=== PATIENT | female | born 1955 | race Caucasian/White ===

== ENCOUNTER 2016-07-01 19:30 | Inpatient (IN) | payer MEDICARE, OTHER ==
[2016-07-01] MEDS ORDERED: SODIUM CHLORIDE 0.9% 1,000 ML IV STA (20:06)
[2016-07-01] MEDS ORDERED: ONDANSETRON 4 MG/2 ML VIAL IVP STA (20:07)
[2016-07-01] MEDS: SODIUM CHLORIDE 0.9% 1,000 ML IV SCH (20:38)
[2016-07-01 20:55] LABS: Basophils % (A) 0 %; CH 31.3; CHCM 34.7; Eosinophils # (A) 0.1 k/uL (0-0.7); Eosinophils % (A) 1 %; HCT 43.9 % (34.0-46.0); HDW 2.58; HGB 14.7 gm/dL (11.4-16.0); Luc % (Auto) 2; Lymphocytes % (A) 22 %; MCH 30.3 pg (25.0-35.0); MCHC 33.5 g/dL (31.0-37.0); MCV 90.5 fL (80.0-100.0); Mean Platelet Volume 6.6; Monocytes # (A) 0.7 k/uL (0-1.0); Monocytes % (A) 5 %; Neutrophils # (A) 9.7 k/uL (1.3-7.7); Neutrophils % (A) 71 %; RBC 4.85 m/uL (3.80-5.40); RDW 12.7 % (11.5-15.5); WBC 13.8 k/uL (3.8-10.6); WBC (Perox) 12.91
--- NOTE | 2016-07-01 20:55 | ED ---
General Adult HPI - General Chief complaint: Overdose Stated complaint: accidental drug ingestion Time Seen by Provider: 07/01/16 19:57 Source: patient Mode of arrival: wheelchair Limitations: no limitations - History of Present Illness Initial comments: This 61-year-old white male presents with a complaint of feeling dizzy/ lightheaded, weak, presyncopal, having blurry vision, and having arm tingling. She also has had some nausea. Her symptoms are worse with standing. She denies any chest pain. She states that she accidentally took her father's medications at 2:00 PM today. She apparently took: Digoxin, losartan, allopurinol, clorasin, Lasix, and Imdur. The symptoms came on shortly thereafter. She does present hypotensive and tachycardic. She states that she only took one dose of the medications and these were completely accidental. She further relates that she did not take her normal medications today after she realized that she took her father's medications. No other identifiable complaints or modifying factors. - Related Data Home Medications Medication Instructions Recorded Confirmed Aspirin [Adult Low Dose Aspirin EC] 81 mg PO DAILY 07/01/16 07/01/16 Cholecalciferol [Vitamin D3] 1,000 unit PO DAILY 07/01/16 07/01/16 Fluticasone Nasal [place] [Flonase 2 spr EA NOSTRIL DAILY 07/01/16 07/01/16 Nasal [place]] Hydrochlorothiazide 12.5 mg PO DAILY 07/01/16 07/01/16 Ibuprofen [Motrin] 800 mg PO TID PRN 07/01/16 07/01/16 Metoprolol Tartrate [Lopressor] 25 mg PO BID 07/01/16 07/01/16 Omeprazole 20 mg PO BID 07/01/16 07/01/16 Rosuvastatin [Crestor] 10 mg PO HS 07/01/16 07/01/16 Sucralfate [Carafate] 1 gm PO DAILY 07/01/16 07/01/16 Topiramate [Topamax] 50 mg PO BID 07/01/16 07/01/16 oxyCODONE-APAP 7.5-325MG [Percocet 1 tab PO TID PRN 07/01/16 07/01/16 7.5-325 mg] tiZANidine HCL [Zanaflex] 6 mg PO TID 07/01/16 07/01/16 Allergies Allergy/AdvReac Type Severity Reaction Status Date / Time sulfamethoxazole Allergy Unknown Verified 07/01/16 20:13 [From ] trimethoprim [From ] Allergy Unknown Verified 07/01/16 20:13 Review of Systems ROS Statement: Those systems with pertinent positive or pertinent negative responses have been documented in the HPI. ROS Other: All systems not noted in ROS Statement are negative. Past Medical History Past Medical History: Hypertension History of Any Multi-Drug Resistant Organisms: MRSA Date of last positivie culture/infection: 2008 MDRO Source:: Axilla, Cheek Past Surgical History: Heart Catheterization Past Psychological History: No Psychological Hx Reported Smoking Status: Current every day smoker Past Alcohol Use History: None Reported Past Drug Use History: None Reported General Exam - General Exam Comments Initial Comments: GENERAL: The patient is well nourished and well hydrated. VITAL SIGNS: Heart rate, blood pressure, respiratory rate reviewed as recorded in nurse's notes. EYES: Pupils are round and reactive. Extraocular movements are intact. No conjunctival / lid redness or swelling. ENT: No external evidence of injury, swelling, or ecchymosis. Airway is patent. Throat is clear. NECK: Nontender. No swelling or evidence of injury. No subcutaneous emphysema. Trachea is midline. No thyroid mass. HEART: Regular rate and rhythm. Good peripheral pulses. LUNGS/CHEST: Breath sounds clear and equal bilaterally. No rales, rhonchi, or wheezes. No ecchymosis, subcutaneous emphysema, or tenderness. ABDOMEN: Abdomen soft without tenderness. No palpable masses or organomegaly. No peritoneal signs. No abdominal wall swelling or ecchymosis. EXTREMITIES: No extremity tenderness. Normal muscle tone and function. No thoracolumbar tenderness. NEUROLOGIC: Sensation is grossly intact. Cranial nerve exam reveals face is symmetrical, tongue is midline, speech is clear. SKIN: No abrasions or ecchymosis is noted. No induration or masses noted. PSYCHIATRIC: Alert and oriented. Appropriate behavior and judgment. Limitations: no limitations Course Vital Signs 07/01/16 07/01/16 07/01/16 19:36 20:15 20:45 Temperature 97.5 F L Pulse Rate 121 H 108 H 102 H Respiratory 22 20 20 Rate Blood Pressure 81/57 84/54 98/56 O2 Sat by Pulse 96 98 99 Oximetry 07/01/16 21:15 Temperature Pulse Rate 97 Respiratory 20 Rate Blood Pressure 100/56 O2 Sat by Pulse 99 Oximetry Medical Decision Making - Medical Decision Making The patient was seen and examined. All diagnostics were reviewed. EKG was completed and shows a sinus tachycardia at a rate of 114. There is no acute ST- T wave changes noted. The AK intervals 1:30, QRS duration is 82, and QTC intervals 471. Her blood pressure initially was 81/57 but recheck shows 102/ 60. The laboratories reviewed. The CO2 is slightly low. The white blood cell count is slightly elevated. Her blood pressure is still only 96/54 on recheck. It is felt as though she would benefit from short stay admission for further evaluation and treatment. She is agreeable. Case will be discussed with medicine in the near future. - Lab Data Result diagrams: 07/01/16 20:30 07/01/16 20:30 Lab Results 07/01/16 07/01/16 07/01/16 Range/Units 20:30 20:30 20:30 WBC 13.8 H (3.8-10.6) k/uL RBC 4.85 (3.80-5.40) m/uL Hgb 14.7 (11.4-16.0) gm/dL Hct 43.9 (34.0-46.0) % MCV 90.5 (80.0-100.0) fL MCH 30.3 (25.0-35.0) pg MCHC 33.5 (31.0-37.0) g/dL RDW 12.7 (11.5-15.5) % Plt Count 315 (150-450) k/uL Neutrophils % 71 % Lymphocytes % 22 % Monocytes % 5 % Eosinophils % 1 % Basophils % 0 % Neutrophils # 9.7 H (1.3-7.7) k/uL Lymphocytes # 3.0 (1.0-4.8) k/uL Monocytes # 0.7 (0-1.0) k/uL Eosinophils # 0.1 (0-0.7) k/uL Basophils # 0.0 (0-0.2) k/uL Sodium 138 (137-145) mmol/L Potassium 3.7 (3.5-5.1) mmol/L Chloride 106 (98-107) mmol/L Carbon Dioxide 19 L (22-30) mmol/L Anion Gap 13 mmol/L BUN 24 H (7-17) mg/dL Creatinine 0.78 (0.52-1.04) mg/dL Est GFR (MDRD) Af Amer >60 (>60 ml/min/1.73 sqM) Est GFR (MDRD) Non-Af >60 (>60 ml/min/1.73 sqM) Glucose 122 H (74-99) mg/dL Calcium 9.6 (8.4-10.2) mg/dL Total Bilirubin 0.3 (0.2-1.3) mg/dL AST 11 L (14-36) U/L ALT 20 (9-52) U/L Alkaline Phosphatase 92 (38-126) U/L Total Creatine Kinase 28 L (30-135) U/L CK-MB (CK-2) 0.9 (0.0-2.4) ng/mL CK-MB (CK-2) Rel Index 3.2 Troponin I <0.012 (0.000-0.034) ng/mL Total Protein 7.2 (6.3-8.2) g/dL Albumin 4.2 (3.5-5.0) g/dL Disposition Clinical Impression: Accidental drug ingestion, Hypotension, Sinus tachycardia, Dizziness, Pre- syncope, Weakness Disposition: ADMITTED IP TO THIS [facility] Time of Disposition: 21:41 Decision Date: 07/01/16 Decision Time: 21:41
[2016-07-01 21:04] LABS: ALT 20 U/L (9-52); AST 11 U/L (14-36); Alkaline Phosphatase 92 U/L (38-126); Anion Gap 13 mmol/L; Blood Urea Nitrogen 24 mg/dL (7-17); Calcium 9.6 mg/dL (8.4-10.2); Carbon Dioxide 19 mmol/L (22-30); Chloride 106 mmol/L (98-107); Glucose 122 mg/dL (74-99); Non-African American GFR(MDRD) >60 (>60 ml/min/1.73 sqM); Potassium 3.7 mmol/L (3.5-5.1); Sodium 138 mmol/L (137-145); Total Bilirubin 0.3 mg/dL (0.2-1.3); Total Protein 7.2 g/dL (6.3-8.2)
[2016-07-01 21:16] LABS: Creatine Kinase 28 U/L (30-135)
[2016-07-01 21:28] LABS: Creatine Kinase MB 0.9 ng/mL (0.0-2.4); Troponin I <0.012 ng/mL (0.000-0.034)
[2016-07-01] MEDS ORDERED: NALOXONE 0.4 MG/ML 1 ML VIAL IV PRN (22:55)
[2016-07-01] MEDS ORDERED: ONDANSETRON 4 MG/2 ML VIAL IVP PRN (22:55)
[2016-07-01] MEDS ORDERED: METOCLOPRAMIDE 5 MG/ML 2 ML VIAL IVP PRN (23:01)
[2016-07-01] MEDS ORDERED: oxyCODONE-APAP 7.5-325MG 1 EACH TAB PO PRN (23:01)
[2016-07-02 00:24] VITALS: RESP 16
[2016-07-02 00:26] VITALS: BMI 37.7
[2016-07-02] MEDS: SODIUM CHLORIDE 0.9% 1,000 ML IV SCH (05:29)
[2016-07-02 07:41] VITALS: BP 102/75; PULSE 100; TEMP 98.6
[2016-07-02] MEDS ORDERED: IBUPROFEN 600 MG TAB PO PRN (08:12)
[2016-07-02] MEDS ORDERED: CHOLECALCIFEROL 1,000 UNIT TAB PO SCH (09:00)
[2016-07-02] MEDS ORDERED: HYDROCHLOROTHIAZIDE 12.5 MG CAP PO SCH (09:00)
[2016-07-02] MEDS ORDERED: SUCRALFATE 1 GM TAB PO SCH (09:00)
[2016-07-02] MEDS ORDERED: TOPIRAMATE 25 MG TAB PO SCH (09:00)
[2016-07-02] MEDS ORDERED: FLUTICASONE 50MCG/SPRAY NASAL 16GM EA NOSTRIL SCH (09:00)
[2016-07-02] MEDS ORDERED: ENOXAPARIN 40 MG/0.4 ML SYRINGE SQ SCH (09:00)
[2016-07-02] MEDS ORDERED: PANTOPRAZOLE 40 MG/10 ML VIAL IV SCH (09:00)
[2016-07-02] MEDS ORDERED: ASPIRIN 81 MG CHEW PO SCH (09:00)
[2016-07-02] MEDS ORDERED: METOPROLOL TARTRATE 25 MG TAB PO SCH (09:00)
--- NOTE | 2016-07-02 16:32 | P.HPIM ---
History of Present Illness H&P Date: 07/02/16 Chief Complaint: Drug overdose HISTORY AND PHYSICAL AND DISCHARGE SUMMARY: This is a 61-year-old female patient of Dr. Dwayne Pablo with a past medical history of COPD, gastroesophageal reflux disease, hyperlipidemia, hypertension, MRSA, tobacco use and dependence. Patient states that she usually sets up her own medications as well as her father's medications and accidentally took his medications of digoxin, losartan, allopurinol, quercetin, Lasix, Imdur. Patient noticed that she was feeling dizzy in heart rate was increased and later when she was going to give her father his medication she noticed her mistake. She came into [facility] emergency center for evaluation. Patient initially was hypotensive. EKG was a sinus tachycardia with no acute ST-T wave changes. White count was 13.8, BUN 24 and creatinine 0.78. Patient was started on IV fluids and monitored overnight. Blood pressure and heart rate improved by morning. Patient was ready for discharge home. 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 Patient is being discharged home today in stable condition. Review of Systems All systems: negative Constitutional: Reports fatigue, Denies chills, Denies fever Eyes: denies blurred vision, denies pain Ears, nose, mouth and throat: Reports vertigo, Denies headache, Denies sore throat Cardiovascular: Reports palpitations, Denies chest pain, Denies shortness of breath Respiratory: Denies cough Gastrointestinal: Denies abdominal pain, Denies diarrhea, Denies nausea, Denies vomiting Genitourinary: Denies dysuria, Denies hematuria Musculoskeletal: Denies myalgias Integumentary: Denies pruritus, Denies rash Neurological: Denies numbness, Denies weakness Psychiatric: Denies anxiety, Denies depression Endocrine: Denies fatigue, Denies weight change Past Medical History Past Medical History: COPD, GERD/Reflux, Hyperlipidemia, Hypertension History of Any Multi-Drug Resistant Organisms: None Reported, MRSA Date of last positivie culture/infection: 2008 MDRO Source:: Axilla, Cheek Past Surgical History: Back Surgery, Cholecystectomy, Heart Catheterization, Hernia Repair, Hysterectomy, Orthopedic Surgery Additional Past Surgical History / Comment(s): bilateral knee scope, left carpal tunnel, left elbow surgery, lumbar back surgery, hysterectomy due to dysfunctional uterine bleeding, colonoscopy in the past. Past Anesthesia/Blood Transfusion Reactions: No Reported Reaction Past Psychological History: Depression Smoking Status: Current every day smoker Past Alcohol Use History: None Reported Additional Past Alcohol Use History / Comment(s): Patient is a smoker one pack per day since she was 16 years of age. 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 Past Drug Use History: None Reported - Past Family History Mother Family Medical History: Cancer, COPD, Diabetes Mellitus Additional Family Medical History / Comment(s): Mother at age 73 with history of lung cancer and diabetes. Father Family Medical History: COPD, Diabetes Mellitus Additional Family Medical History / Comment(s): Father is alive at age 83 with history of diabetes mellitus with bilateral lower extremity amputations, coronary artery disease, heart failure, atrial fibrillation. Brother(s) Additional Family Medical History / Comment(s): Patient has 2 brothers and 2 sisters and she does not have any contact with them for more than 6 years. Daughter(s) Additional Family Medical History / Comment(s): Patient has 3 children. One at age 34 from heart problems or pneumonia. 1 has seizure disorder and blood cancer, one is healthy. Medications and Allergies Home Medications Medication Instructions Recorded Confirmed Type Aspirin [Adult Low Dose Aspirin EC] 81 mg PO DAILY 07/01/16 07/01/16 History Cholecalciferol [Vitamin D3] 1,000 unit PO DAILY 07/01/16 07/01/16 History Fluticasone Nasal [place] [Flonase 2 spr EA NOSTRIL DAILY 07/01/16 07/01/16 History Nasal [place]] Hydrochlorothiazide 12.5 mg PO DAILY 07/01/16 07/01/16 History Ibuprofen [Motrin] 800 mg PO TID PRN 07/01/16 07/01/16 History Metoprolol Tartrate [Lopressor] 25 mg PO BID 07/01/16 07/01/16 History Omeprazole 20 mg PO BID 07/01/16 07/01/16 History Rosuvastatin [Crestor] 10 mg PO HS 07/01/16 07/01/16 History Sucralfate [Carafate] 1 gm PO DAILY 07/01/16 07/01/16 History Topiramate [Topamax] 50 mg PO BID 07/01/16 07/01/16 History oxyCODONE-APAP 7.5-325MG [Percocet 1 tab PO TID PRN 07/01/16 07/01/16 History 7.5-325 mg] tiZANidine HCL [Zanaflex] 6 mg PO TID 07/01/16 07/01/16 History Allergies Allergy/AdvReac Type Severity Reaction Status Date / Time sulfamethoxazole Allergy Rash/Hives Verified 07/02/16 00:32 [From ] trimethoprim [From ] Allergy Rash/Hives Verified 07/02/16 00:32 Physical Exam Vitals: Vital Signs Temp Pulse Pulse Resp BP BP Pulse Ox 07/02/16 07:00 98.6 F 100 16 102/75 97 07/02/16 02:29 101 H 106/87 07/02/16 00:23 97.3 F L 106 H 16 108/72 96 07/01/16 23:33 97.6 F 96 18 142/63 96 07/01/16 22:00 90 20 110/70 97 07/01/16 21:15 97 20 100/56 99 07/01/16 20:45 102 H 20 98/56 99 07/01/16 20:15 108 H 20 84/54 98 07/01/16 19:36 97.5 F L 121 H 22 81/57 96 Intake and Output 07/01/16 07/02/16 07/02/16 22:59 06:59 14:59 Other: # Voids 1 1 Weight 90.718 kg 102.9 kg Gen: This is a 61-year-old female. She is sitting up in bed and appears to be in no acute distress. HEENT: Head is atraumatic, normocephalic. Pupils equal, round. Sclerae is anicteric. NECK: Supple. No JVD. No lymphadenopathy. No thyromegaly. LUNGS: Clear to auscultation. No wheezes or rhonchi. No intercostal retractions. HEART: Regular rate and rhythm. No murmur. ABDOMEN: Soft. Bowel sounds are present. No masses. No tenderness. EXTREMITIES: No pedal edema. No calf tenderness. NEUROLOGICAL: Patient is awake, alert and oriented x3. Cranial nerves 2 through 12 are grossly intact. Results CBC & Chem 7: 07/01/16 20:30 07/01/16 20:30 Labs: Abnormal Lab Results - Last 24 Hours (Table) 07/01/16 07/01/16 07/01/16 Range/Units 20:30 20:30 20:30 WBC 13.8 H (3.8-10.6) k/uL Neutrophils # 9.7 H (1.3-7.7) k/uL Carbon Dioxide 19 L (22-30) mmol/L BUN 24 H (7-17) mg/dL Glucose 122 H (74-99) mg/dL AST 11 L (14-36) U/L Total Creatine Kinase 28 L (30-135) U/L Thrombosis Risk Factor Assmnt - DVT/VTE Prophylaxis DVT/VTE Prophylaxis: Pharmacologic Prophylaxis ordered - Choose All That Apply Any of the Below Risk Factors Present?: Yes Each Factor Represents 1 point: Abnormal pulmonary function (COPD), Age 41-60 years, Obesity (BMI >25) Other Risk Factors: No Other congenital or acquired thrombophilia - If yes, enter type in comment: No Thrombosis Risk Factor Assessment Total Risk Factor Score: 3 Thrombosis Risk Factor Assessment Level: Moderate Risk Assessment and Plan Plan: 1. Accidental ingestion of medications presenting with dizziness, presyncope and tachycardia, resolved. 2. COPD, stable. 3. Gastroesophageal reflux disease. 4. Hyperlipidemia. 5. Hypertension. 6. Chronic back pain. 7. Seasonal ALLERGIES. Patient will be admitted to the hospital for a minimum of 1 night stay. Discharge plan: Return home Impression and plan of care have been directed as dictated by the signing physician. Kelly Guerrier nurse practitioner acting as scribe for signing physician.
[2016-07-02] MEDS ORDERED: ATORVASTATIN 20 MG TAB PO SCH (21:00)
== END 2016-07-02 12:18 | disposition home or self-care (01) | DRG 918 ==
LOC: EC 19:30 → OBSVTOIN 22:58 → 4MS4W 22:58
PROVIDERS: ADMIT Internal Medicine; ATTEND Internal Medicine
DX: T46.0X1A Poisoning by cardiac-stimulant glycosides and drugs of similar action, accidental (unintentional), initial encounter (principal); I95.9 Hypotension, unspecified; I10 Essential (primary) hypertension; F32.9 Major depressive disorder, single episode, unspecified; R55 Syncope and collapse; T46.5X1A Poisoning by other antihypertensive drugs, accidental (unintentional), initial encounter; T50.4X1A Poisoning by drugs affecting uric acid metabolism, accidental (unintentional), initial encounter; T50.1X1A Poisoning by loop [high-ceiling] diuretics, accidental (unintentional), initial encounter; T46.3X1A Poisoning by coronary vasodilators, accidental (unintentional), initial encounter; R42 Dizziness and giddiness; R00.0 Tachycardia, unspecified; E78.5 Hyperlipidemia, unspecified; F17.200 Nicotine dependence, unspecified, uncomplicated; G89.29 Other chronic pain; J30.2 Other seasonal allergic rhinitis; J44.9 Chronic obstructive pulmonary disease, unspecified; K21.9 Gastro-esophageal reflux disease without esophagitis; M54.9 Dorsalgia, unspecified; Z79.82 Long term (current) use of aspirin; Z79.899 Other long term (current) drug therapy; Z86.14 Personal history of Methicillin resistant Staphylococcus aureus infection; Z88.2 Allergy status to sulfonamides; Z88.8 Allergy status to other drugs, medicaments and biological substances; Z82.49 Family history of ischemic heart disease and other diseases of the circulatory system; Y92.009 Unspecified place in unspecified non-institutional (private) residence as the place of occurrence of the external cause
CPT/HCPCS: 36415; 80053; 82550; 82553; 84484; 85025; 93005

== ENCOUNTER → 2016-08-29 | Outpatient (CLI) | payer MEDICARE ==
--- NOTE | 2016-08-29 16:59 | CT ---
EXAMINATION TYPE: CT lumbar spine wo con DATE OF EXAM: 08/29/2016 4:40 PM COMPARISON: NONE HISTORY: Low back pain into both legs. CT DLP: 990.00 mGycm Automated exposure control for dose reduction was used. Unenhanced CT of the lumbar spine was performed. Bone and soft tissue window settings are submitted as well as coronal and sagittal reconstructions. Assessment spinal canal limited due to artifact and noncontrast technique. Lipoma of the left diaphragmatic mojgan. At T12-L1 there is a central disc bulge with mild effacement of thecal sac. Neural foramina patent. L1-L2: Circumferential disc bulge and degenerative disc disease with mild hypertrophy of the facets. Neural foramina remain patent. L2-L3: Moderate degenerative disc disease with diffuse disc bulging and facet arthropathy. There is e ffacement of thecal sac is suspicion for bilateral foraminal encroachment and canal stenosis. L3-L4: Severe degenerative disc disease with discogenic marrow changes and vacuum disc. There is hype rtrophic facet arthropathy and diffuse disc bulging with findings suspicious for canal stenosis, late ral recess stenosis, and bilateral foraminal encroachment. L4-L5: Vacuum disc and severe degenerative disc disease with diffuse disc bulging. Central and right paracentral disc protrusion with hypertrophy of the ligamentum flavum and facets suspected suspected canal stenosis and significant bilateral foraminal encroachment. L5-S1: Circumferential disc bulging and degenerative disc disease. There is facet arthropathy and riley picion for bilateral foraminal encroachment. IMPRESSION: 1. Multilevel degenerative disc disease with severe changes at L3-4 and L4-5. Multilevel disc bulging is also seen which results in multilevel significant canal stenosis and foraminal encroachment. Mor mmend follow-up MRI.
== END | disposition home or self-care (01) ==
LOC: RADCTMAIN 15:57
PROVIDERS: ATTEND Orthopaedic Surgery
DX: M48.06 Spinal stenosis, lumbar region (principal); M51.26 Other intervertebral disc displacement, lumbar region; M51.36 Other intervertebral disc degeneration, lumbar region
CPT/HCPCS: 72131

== ENCOUNTER → 2016-08-30 | Outpatient (CLI) | payer MEDICARE ==
--- NOTE | 2016-08-30 22:11 | MR ---
MRI CERVICAL SPINE: CLINICAL HISTORY: Headaches with neck pain and bilateral upper extremity weakness and numbness per pa tient. Lhermitte sign and neck pain per order. TECHNIQUE: Multiplanar, multisequence imaging of the cervical spine is performed without IV contrast. COMPARISON: None. FINDINGS: Exam is somewhat suboptimal as is degraded by patient motion. Sagittal images of the cervic al spine show the craniocervical junction to appear within normal limits. The cervical and upper tho racic spinal cord is normal in course, caliber, and signal. Vertebral alignment is anatomic. The ve rtebral body heights are normal. There is mild disc space narrowing C4-C5 level. Small posterior disc herniations are seen C4-C5 and C6-C7 level on sagittal images effacing anterior thecal sac. The bone marrow signal intensity is within normal limits. Miffed and spurring is seen. Axial images show the C2-C3 and C3-C4 levels to appear within normal limits. Axial images at C4-C5 level show broad-based posterior disc protrusion most prominent right paracentr al level effacing anterior thecal sac nearly up to ventral surface of spinal cord. There are uncovert ebral facet degenerative changes bilaterally and mild marginal spurring contributing to moderate left and mild right-sided neural foraminal narrowing. Axial images at C5-C6 level show broad-based central disc protrusion mildly effacing anterior thecal sac, bilateral neural foramina are patent. Axial images at C6-C7 level show uncovertebral facet degenerative changes greater on the left with po sterior broad-based disc protrusion effacing anterior thecal sac and causing asymmetric moderate to a dvanced left-sided neural foraminal narrowing. Right-sided neural foraminal narrowing is present. Axial images at C7-T1 level are felt within normal limits. There is suspected 7 mm T2 hyperintense lesion in lower pole left thyroid lobe on axial image 5. Thyr oid gland is overall small in size. There is 8mm T2 hyperintense lesion in the central isthmus on axi al image 12. Smaller nodules are suspected. IMPRESSION: Multilevel degenerative changes in the cervical spine most prominent at C4-C5 and C6-C7 l evels as detailed above. Most prominent spinal canal effacement at C4-C5 level on axial image 31 and sagittal image 9 right paracentral aspect. Advise thyroid ultrasound follow-up for scattered thyroid nodules to further assess and characterize.
== END | disposition home or self-care (01) ==
LOC: RADMRIMAIN 14:23
PROVIDERS: ATTEND Orthopaedic Surgery
DX: M47.812 Spondylosis without myelopathy or radiculopathy, cervical region (principal)
CPT/HCPCS: 72141

== ENCOUNTER → 2016-09-10 | Outpatient (CLI) | payer MEDICARE ==
--- NOTE | 2016-09-10 17:40 | MR ---
EXAMINATION TYPE: MR thoracic spine wo con DATE OF EXAM: 09/10/2016 5:27 PM COMPARISON: NONE HISTORY: Back and Leg pain x20 years Multiplanar MultiSpin echo imaging of the thoracic spine was performed. Disc spaces: There is mild decreased signal and loss of height compatible with disc desiccation at T6 -T7 through T10-11. At T6-7 there is posterior central small disc protrusion. At T9-10 and T10-11 the re is mild posterior disc bulge. Spinal canal: No evidence for canal stenosis. No intrinsic or extrinsic lesion. Thoracic spinal cord: Thoracic spinal cord is of normal caliber and signal. Paraspinal soft tissues: No evidence for paraspinal mass. No destructive lesions seen. Vertebral segments: Scattered ventral spondylosis is identified. No evidence for fracture or bony les ion. IMPRESSION: 1. Degenerative disc disease as discussed. 2. Disc protrusion posterocentrally at C6-7.
== END | disposition home or self-care (01) ==
LOC: RADMRIMAIN 16:38
PROVIDERS: ATTEND Orthopaedic Surgery
DX: M51.24 Other intervertebral disc displacement, thoracic region (principal); M51.34 Other intervertebral disc degeneration, thoracic region
CPT/HCPCS: 72146

== ENCOUNTER → 2016-09-18 | Outpatient (CLI) | payer MEDICARE ==
[2016-09-18 16:14] LABS: Non-African American GFR(MDRD) >60 (>60 ml/min/1.73 sqM)
== END | disposition home or self-care (01) ==
LOC: LABWHC1 15:46
PROVIDERS: ATTEND Orthopaedic Surgery
DX: Z09 Encounter for follow-up examination after completed treatment for conditions other than malignant neoplasm (principal); Z98.890 Other specified postprocedural states
CPT/HCPCS: 36415; 82565

== ENCOUNTER → 2017-06-18 | Outpatient (CLI) | payer MEDICARE ==
[2017-06-18 14:42] LABS: Blood Urea Nitrogen 17 mg/dL (7-17)
--- NOTE | 2017-06-22 02:58 | MR ---
EXAMINATION TYPE: MR edd/lspine wo/w con DATE OF EXAM: 06/18/2017 COMPARISON: Cervical spine 08/30/2016 and lumbar spine 02/14/2016 HISTORY: 62-year-old female cervicalgia, neck pain, low back pain. Technique: Multiplanar, multisequence images of the cervical and lumbar spines were obtained before a nd after administration of 10 mL intravenous Gadavist. FINDINGS: CERVICAL SPINE: No craniocervical junction abnormality, predental space widening, or prevertebral soft tissue swellin g. Intervertebral discs show variable mild to moderate disc desiccation. Disc osteophyte complexes are p resent, largest in C4-C5. Ligamentum flavum thickening lower cervical spine. Small posterior annular fissure at C5-C6 is slightly larger. Straightening of the upper cervical lordosis but with preserved alignment. Scattered facet and uncovertebral joint degenerative change throughout. No suspicious bone marrow replacement. At C2-C3, mild facet degenerative change without significant canal or foraminal stenosis. At C3-C4, facet and uncovertebral joint degenerative change with mild left neuroforaminal stenosis. N o significant spinal canal stenosis. At C4-C5, there is bilateral paracentral disc osteophyte complex contiguous with uncovertebral joint degenerative change. Additional facet arthropathy. Changes result in [id number] left greater th an right neuroforaminal stenosis. There is ventral impression on the thecal sac and abutment of the v entral cord with minimal cord flattening but no significant spinal canal stenosis. At C5-C6, broad-based posterior disc bulge with annular fissure. Ligamentum flavum thickening. Facet and uncovertebral joint degenerative changes present. No significant spinal canal or foraminal stenos is. At C6/C7, broad-based disc osteophyte complex with contiguous uncovertebral joint arthropathy as well as bilateral facet arthropathy. Ligamentum flavum thickening is also present. There is overall mild spinal canal stenosis with abutment of both the dorsal and ventral cord but no significant cord angelica ening. Changes result in moderate left and mild right neuroforaminal stenosis. At C7-T1, mild facet degenerative change without significant canal or foraminal stenosis. No T2-weighted cord signal abnormality. No abnormal enhancement within the spinal canal. Overall changes are similar to the patient's recent prior. 9 mm nodule left lobe of the thyroid gland not significantly changed. LUMBAR SPINE: Vertebral body heights are preserved. Grade 1 retrolisthesis from L2 through L5 levels, stable to slightly increased. Multilevel severe hypertrophic facet arthropathy is present. Intervertebral discs are degenerated, desiccated, narrowed, a diffusely bulging. Severe degenerative disc disease and endplate spondylosis at L3-L4 and L4-L5 progressed at L4-L5. Conus medullaris terminates at an appropriate level. No prevertebral or paravertebral soft tissue abnormality seen. At T12-L1, there is diffuse disc bulge and prominent dorsal epidural fat. Similar mild spinal canal s tenosis and no significant neural foraminal stenosis. At L1-L2, there is diffuse disc bulge with hypertrophic facet arthropathy and prominent epidural fat. Changes result in similar mild spinal canal stenosis at the level of the conus without significant n euroforaminal stenosis. At L2-L3, there is trace grade 1 retrolisthesis with hypertrophic facet arthropathy, prominent dorsal epidural fat, and diffuse disc bulge. Changes result in worsening severe spinal canal stenosis. Rosa Isela lar mild bilateral neuroforaminal stenosis. At L3-L4, disc osteophyte complex with hypertrophic facet arthropathy and grade 1 retrolisthesis. Rel atively similar severe spinal canal stenosis. Similar moderate left and mild right neuroforaminal sidney nosis. At L4-L5, hypertrophic facet arthropathy with ligamentum flavum thickening and diffuse disc bulge wit h trace grade 1 retrolisthesis. Changes have progressed from prior exam now with severe spinal canal stenosis. Similar moderate bilateral neuroforaminal stenosis. At L5-S1, diffuse disc bulge with hypertrophic facet arthropathy and ligamentum flavum thickening. Si milar moderate left with increased severe right neuroforaminal stenosis. No spinal canal stenosis. Maximal endplate changes are present particularly towards the left at L3-L4 and L4-L5. The previously sequestered disc fragment at the posterior aspect of L4 is no longer seen. No abnormal enhancement within the spinal canal. COMBINED IMPRESSION: CERVICAL SPINE: 1. [id number] multilevel degenerative disc disease with small disc osteophyte complexes. There is a posterior annular fissure at C5-C6 which is slightly larger. 2. Mild ligamentum flavum thickening lower cervical spine and multilevel facet/uncovertebral joint ar thropathy. 3. Changes result in overall mild spinal canal stenosis at C6-C7 where there is abutment of both the dorsal and ventral cord but no significant cord flattening or canal compromise. 4. Variable mild neural foraminal stenoses as outlined above, moderate on the left at C6-C7. 5. Aside from the annular fissure, overall changes have not significantly progressed from prior exam. LUMBAR SPINE: 1. Moderate to advanced multilevel spondylotic change with degenerative grade 1 retrolisthesis from L 2 through L5 levels, slightly progressed from 02/14/2016. 2. The previously seen sequestered disc fragment at the L4 level is no longer seen. However, now, the re is increased severe spinal canal stenosis at L4-L5. Relatively similar severe spinal canal stenosi s at L3-L4, and worsening severe spinal canal stenosis at L2-L3. At L1-L2, there is similar mild spin al canal stenosis at the level of the conus. 3. Variable bilateral neural foraminal stenoses, increasing severe on the right at L5-S1 and either m ild or moderate at multiple other levels as outlined above.
== END ==
LOC: RADMRIMAIN 13:53
PROVIDERS: ATTEND Psychiatry & Neurology Neurology
DX: M54.2 Cervicalgia (principal); M54.5 Low back pain; M48.02 Spinal stenosis, cervical region; M48.061 Spinal stenosis, lumbar region without neurogenic claudication; M51.36 Other intervertebral disc degeneration, lumbar region
CPT/HCPCS: 82565; 84520; 72156; 72158; A9581

== ENCOUNTER 2019-06-21 17:06 | Emergency (ER) | payer MEDICARE ==
[2019-06-21 17:17] VITALS: RESP 18
[2019-06-21] MEDS ORDERED: KETOROLAC 60 MG/2 ML VIAL IM STA (17:45)
--- NOTE | 2019-06-21 17:48 | ED ---
General Adult HPI - General Chief complaint: Extremity Problem,Nontraumatic Stated complaint: breast swelling Time Seen by Provider: 06/21/19 17:20 Source: patient Mode of arrival: wheelchair Limitations: no limitations - History of Present Illness Initial comments: Patient is a 64-year-old female presenting to the emergency Department with complaints of right breast pain 2 days. Patient denies any history of trauma or falls. Patient states she noticed some soreness 2 days ago and then a little bit of swelling yesterday. Patient states today she noticed significant bruising and a rapid increase in the swelling today. Patient states she is alr jacqueline on a morphine pump for chronic back pain and states this pain is limiting her daily activities. She states she has never had anything like this before. She denies history of any kind of breast injuries or surgeries. She denies recent fever, chills, nausea, vomiting. She states she did take 800 mg Motrin this morning as well which minimally helped the pain. She has no other complaints at this time. Upon arrival to the ER, patient is slightly tachycardia, rest of vitals normal. - Related Data Home Medications Medication Instructions Recorded Confirmed Aspirin [Adult Low Dose Aspirin EC] 81 mg PO DAILY 07/01/16 07/01/16 Cholecalciferol [Vitamin D3 (25 1,000 unit PO DAILY 07/01/16 07/01/16 Mcg = 1000 Iu)] Fluticasone Nasal Advance [Flonase 2 spr EA NOSTRIL DAILY 07/01/16 07/01/16 Nasal Advance] Hydrochlorothiazide 12.5 mg PO DAILY 07/01/16 07/01/16 Ibuprofen [Motrin] 800 mg PO TID PRN 07/01/16 07/01/16 Metoprolol Tartrate [Lopressor] 25 mg PO BID 07/01/16 07/01/16 Omeprazole 20 mg PO BID 07/01/16 07/01/16 Rosuvastatin [Crestor] 10 mg PO HS 07/01/16 07/01/16 Sucralfate [Carafate] 1 gm PO DAILY 07/01/16 07/01/16 Topiramate [Topamax] 50 mg PO BID 07/01/16 07/01/16 oxyCODONE-APAP 7.5-325MG [Percocet 1 tab PO TID PRN 07/01/16 07/01/16 7.5-325 mg] tiZANidine HCL [Zanaflex] 6 mg PO TID 07/01/16 07/01/16 Allergies Allergy/AdvReac Type Severity Reaction Status Date / Time sulfamethoxazole Allergy Rash/Hives Verified 06/21/19 17:17 [From ] trimethoprim [From ] Allergy Rash/Hives Verified 06/21/19 17:17 Review of Systems ROS Statement: Those systems with pertinent positive or pertinent negative responses have been documented in the HPI. ROS Other: All systems not noted in ROS Statement are negative. Past Medical History Past Medical History: COPD, GERD/Reflux, Hyperlipidemia, Hypertension History of Any Multi-Drug Resistant Organisms: None Reported, MRSA Date of last positivie culture/infection: 2008 MDRO Source:: Axilla, Cheek Past Surgical History: Back Surgery, Cholecystectomy, Heart Catheterization, Hernia Repair, Hysterectomy, Orthopedic Surgery Additional Past Surgical History / Comment(s): bilateral knee scope, left carpal tunnel, left elbow surgery, lumbar back surgery, hysterectomy due to dysfunctio nal uterine bleeding, colonoscopy in the past. Past Anesthesia/Blood Transfusion Reactions: No Reported Reaction Past Psychological History: Depression Smoking Status: Current every day smoker Past Alcohol Use History: None Reported Past Drug Use History: None Reported - Past Family History Mother Family Medical History: Cancer, COPD, Diabetes Mellitus Additional Family Medical History / Comment(s): Mother at age 73 with history of lung cancer and diabetes. Father Family Medical History: COPD, Diabetes Mellitus Additional Family Medical History / Comment(s): Father is alive at age 83 with history of diabetes mellitus with bilateral lower extremity amputations, coronary artery disease, heart failure, atrial fibrillation. Brother(s) Additional Family Medical History / Comment(s): Patient has 2 brothers and 2 sisters and she does not have any contact with them for more than 6 years. Daughter(s) Additional Family Medical History / Comment(s): Patient has 3 children. One at age 34 from heart problems or pneumonia. 1 has seizure disorder and blood cancer, one is healthy. General Exam - General Exam Comments Initial Comments: GENERAL: Well-appearing, well-nourished and in no acute distress. HEAD: Atraumatic, normocephalic. EYES: Pupils equal round and reactive to light, extraocular movements intact, sclera anicteric, conjunctiva are normal. ENT: TMs normal, nares patent, oropharynx clear without exudates. Moist mucous membranes. NECK: Normal range of motion, supple without lymphadenopathy or JVD. LUNGS: Breath sounds clear to auscultation bilaterally and equal. No wheezes rales or rhonchi. HEART: Regular rate and rhythm without murmurs, rubs or gallops. CHEST: Patient has significant swelling of the right breast up into her right upper chest as well as significant bruising of the medial aspect of the right breast. There is significant pain with palpation as well. There is no erythema or signs of infection. ABDOMEN: Soft, nontender, normoactive bowel sounds. No guarding, no rebound. No masses appreciated. : Deferred EXTREMITIES: Normal range of motion, no pitting or edema. No clubbing or cyanosis. NEUROLOGICAL: Normal speech, normal gait. PSYCH: Normal mood, normal affect. SKIN: Warm, Dry, normal turgor, no rashes or lesions noted. Limitations: no limitations Course Vital Signs 06/21/19 06/21/19 17:14 21:57 Temperature 98.8 F 98.2 F Pulse Rate 114 H 100 Respiratory 18 18 Rate Blood Pressure 112/93 119/90 O2 Sat by Pulse 96 98 Oximetry Medical Decision Making - Medical Decision Making Patient is 64-year-old female here with right breast pain, swelling, bruising 2 days. She denies any injuries or trauma. She is not on blood thinners. Ultrasound of the right breast reveals a large area of bruising measured approximately 6 x 8 x 11 cm, fevers hematoma, other etiologies not excluded. Recommended ultrasound-guided drainage. Lab work reveals mild leukocytosis at 13.5, coags are wnl. I discussed with patient to make sure she is wearing support and compression on the right breast. She will follow-up with surgery. Patient is in agreement with this plan of care. She is stable for discharge. Return parameters were discussed the patient she verbalized understanding. Case discussed in detail with Dr. Boyd who agrees with this plan of care. - Lab Data Result diagrams: 06/21/19 20:40 06/21/19 20:40 Lab Results 06/21/19 06/21/19 06/21/19 Range/Units 20:40 20:40 20:40 WBC 13.5 H (3.8-10.6) k/uL RBC 4.02 (3.80-5.40) m/uL Hgb 11.4 (11.4-16.0) gm/dL Hct 37.1 (34.0-46.0) % MCV 92.4 (80.0-100.0) fL MCH 28.5 (25.0-35.0) pg MCHC 30.8 L (31.0-37.0) g/dL RDW 13.4 (11.5-15.5) % Plt Count 340 (150-450) k/uL Neutrophils % 83 % Lymphocytes % 9 % Monocytes % 6 % Eosinophils % 1 % Basophils % 0 % Neutrophils # 11.2 H (1.3-7.7) k/uL Lymphocytes # 1.3 (1.0-4.8) k/uL Monocytes # 0.8 (0-1.0) k/uL Eosinophils # 0.1 (0-0.7) k/uL Basophils # 0.1 (0-0.2) k/uL PT 10.4 (9.0-12.0) sec INR 1.0 (<1.2) APTT 20.5 L (22.0-30.0) sec Sodium 134 L (137-145) mmol/L Potassium 3.7 (3.5-5.1) mmol/L Chloride 103 (98-107) mmol/L Carbon Dioxide 28 (22-30) mmol/L Anion Gap 3 mmol/L BUN 23 H (7-17) mg/dL Creatinine 0.69 (0.52-1.04) mg/dL Est GFR (CKD-EPI)AfAm >90 (>60 ml/min/1.73 sqM) Est GFR (CKD-EPI)NonAf >90 (>60 ml/min/1.73 sqM) Glucose 112 H (74-99) mg/dL Calcium 8.9 (8.4-10.2) mg/dL Total Bilirubin 0.3 (0.2-1.3) mg/dL AST 19 (14-36) U/L ALT 11 (4-34) U/L Alkaline Phosphatase 88 (38-126) U/L Total Protein 5.9 L (6.3-8.2) g/dL Albumin 3.1 L (3.5-5.0) g/dL Disposition Clinical Impression: Hematoma of right breast, Breast pain, right Disposition: HOME SELF-CARE Condition: Stable Instructions (If sedation given, give patient instructions): Hematoma (ED) Additional Instructions: Please return to the Emergency Department if symptoms worsen or any other concerns. Follow-up with surgery as discussed. Keep breast supported in bra as tolerated. Is patient prescribed a controlled substance at d/c from ED?: No Referrals: Dwayne Holloway MD [Primary Care Provider] - 1-2 days Graham Shin MD [STAFF PHYSICIAN] - 1-2 days
--- NOTE | 2019-06-21 19:33 | USB ---
EXAMINATION TYPE: US breast complete RT DATE OF EXAM: 06/21/2019 COMPARISON: NONE CLINICAL HISTORY: Right breast pain, swelling, and bruising x 2 days. No trauma. Patient states her l ast mammogram was approximately 20 years ago. Scanned right breast, retroareolar and axilla. Area of prominent bruising 4:00. There appears to be a complex hypoechoic area that extends into all quadrants of the right breast. Ar ea of prominent bruising seen in the 4:00 area. Area measured here approximately: 6.9 x 8.6 x 11.5 cm . This area does extend throughout the breast and is seen in most images, so it is difficult to accur ately measure by ultrasound. Area is identified by measurements at 400 and retroareolar, although the se are not accurate margins. Limited study. Patient needs follow up with [facility]. IMPRESSION: As above. Due to size of fluid collection which is not completely anechoic it is difficu lt to accurately measure. Favor hematoma. Other etiologies not excluded. Ultrasound-guided drainage c an be performed to further evaluate if desired especially if patient has symptoms of pain.
[2019-06-21 20:52] LABS: Basophils # (A) 0.1 k/uL (0-0.2); Basophils % (A) 0 %; Eosinophils # (A) 0.1 k/uL (0-0.7); Eosinophils % (A) 1 %; HCT 37.1 % (34.0-46.0); HGB 11.4 gm/dL (11.4-16.0); Lymphocytes # (A) 1.3 k/uL (1.0-4.8); Lymphocytes % (A) 9 %; MCH 28.5 pg (25.0-35.0); MCHC 30.8 g/dL (31.0-37.0); MCV 92.4 fL (80.0-100.0); Mean Platelet Volume 7.1; Monocytes # (A) 0.8 k/uL (0-1.0); Monocytes % (A) 6 %; Neutrophils # (A) 11.2 k/uL (1.3-7.7); Neutrophils % (A) 83 %; Platelet Count 340 k/uL (150-450); RBC 4.02 m/uL (3.80-5.40); RDW 13.4 % (11.5-15.5); WBC 13.5 k/uL (3.8-10.6)
[2019-06-21 21:05] LABS: ALT 11 U/L (4-34); AST 19 U/L (14-36); African American GFR (CKD) >90 (>60 ml/min/1.73 sqM); Albumin 3.1 g/dL (3.5-5.0); Alkaline Phosphatase 88 U/L (38-126); Anion Gap 3 mmol/L; Blood Urea Nitrogen 23 mg/dL (7-17); Calcium 8.9 mg/dL (8.4-10.2); Carbon Dioxide 28 mmol/L (22-30); Chloride 103 mmol/L (98-107); Glucose 112 mg/dL (74-99); Non-African American GFR(CKD) >90 (>60 ml/min/1.73 sqM); Potassium 3.7 mmol/L (3.5-5.1); Sodium 134 mmol/L (137-145); Total Bilirubin 0.3 mg/dL (0.2-1.3); Total Protein 5.9 g/dL (6.3-8.2)
[2019-06-21 21:15] LABS: Prothrombin Time 10.4 sec (9.0-12.0)
[2019-06-21 21:20] LABS: Partial Thromboplastin Time 20.5 sec (22.0-30.0)
[2019-06-21 21:58] VITALS: BP 119/90; PULSE 100; TEMP 98.2
== END 2019-06-21 21:57 | disposition home or self-care (01) ==
LOC: EC 17:06
DX: S20.01XA Contusion of right breast, initial encounter (principal); D72.829 Elevated white blood cell count, unspecified; J44.9 Chronic obstructive pulmonary disease, unspecified; K21.9 Gastro-esophageal reflux disease without esophagitis; E78.5 Hyperlipidemia, unspecified; I10 Essential (primary) hypertension; F32.9 Major depressive disorder, single episode, unspecified; F17.200 Nicotine dependence, unspecified, uncomplicated; Z79.82 Long term (current) use of aspirin; Z79.899 Other long term (current) drug therapy; Z88.2 Allergy status to sulfonamides; Z88.1 Allergy status to other antibiotic agents; X58.XXXA Exposure to other specified factors, initial encounter
CPT/HCPCS: 36415; 80053; 85025; 85610; 85730; 76641; 99284; 96372; J1885

== ENCOUNTER 2021-06-26 17:29 | Observation (INO) | payer MEDICARE ==
[2021-06-26] MEDS ORDERED: SODIUM CHLORIDE 0.9% 500 ML 500 ML IV STA (17:44)
[2021-06-26] MEDS ORDERED: ONDANSETRON 4 MG/2 ML VIAL IVP STA ×2 (17:44→18:31)
--- NOTE | 2021-06-26 17:51 | ED ---
General Adult HPI - General Chief complaint: Weakness Stated complaint: AMS Time Seen by Provider: 06/26/21 17:35 Source: patient, EMS, RN notes reviewed, old records reviewed Mode of arrival: EMS Limitations: physical limitation - History of Present Illness -: days(s) (1) Severity scale (1-10): 0 Associated Symptoms: loss of appetite, malaise, nausea/vomiting, weakness, other (Bilateral lower extremity redness) Treatments Prior to Arrival: other (2 doses of Keflex yesterday) - Related Data Home Medications Medication Instructions Recorded Confirmed Aspirin [Adult Low Dose Aspirin EC] 81 mg PO DAILY 07/01/16 06/26/21 Sucralfate [Carafate] 1 gm PO HS 07/01/16 06/26/21 ALPRAZolam [Xanax] 0.25 mg PO BID PRN 06/26/21 06/26/21 Albuterol Nebulized [Ventolin 2.5 mg INHALATION RT-QID PRN 06/26/21 06/26/21 Nebulized] Albuterol Sulfate [Proair 1 puff INHALATION RT-QID PRN 06/26/21 06/26/21 Respiclick] Cephalexin [Keflex] 500 mg PO QID 06/26/21 06/26/21 DULoxetine HCL [Cymbalta] 30 mg PO DAILY 06/26/21 06/26/21 DULoxetine HCL [Cymbalta] 60 mg PO HS 06/26/21 06/26/21 Furosemide [Lasix] 40 mg PO BID@0800,1400 06/26/21 06/26/21 Meloxicam [Mobic] 15 mg PO DAILY 06/26/21 06/26/21 Nitroglycerin Sl Tabs [Nitrostat] 0.4 mg SL Q5M PRN 06/26/21 06/26/21 Omeprazole 20 mg PO HS 06/26/21 06/26/21 Potassium Chloride ER [K-Dur 20] 20 meq PO DAILY 06/26/21 06/26/21 Pregabalin 50 mg PO BID 06/26/21 06/26/21 SILVER sulfADIAZINE Cream 1 applic TOPICAL DAILY 06/26/21 06/26/21 [Silvadene 1% Cream] Triamterene-Hctz 37.5-25Mg 1 tab PO DAILY 06/26/21 06/26/21 [Maxzide 37.5-25] diphenhydrAMINE HCL [Benadryl] 25 mg PO HS PRN 06/26/21 06/26/21 Allergies Allergy/AdvReac Type Severity Reaction Status Date / Time sulfamethoxazole Allergy Rash/Hives Verified 06/26/21 21:09 [From ] trimethoprim [From ] Allergy Rash/Hives Verified 06/26/21 21:09 Review of Systems ROS Statement: Those systems with pertinent positive or pertinent negative responses have been documented in the HPI. ROS Other: All systems not noted in ROS Statement are negative. Past Medical History Past Medical History: COPD, GERD/Reflux, Hyperlipidemia, Hypertension History of Any Multi-Drug Resistant Organisms: None Reported, MRSA Date of last positivie culture/infection: 2008 MDRO Source:: Axilla, Cheek Past Surgical History: Back Surgery, Cholecystectomy, Heart Catheterization, Hernia Repair, Hysterectomy, Orthopedic Surgery Additional Past Surgical History / Comment(s): bilateral knee scope, left carpal tunnel, left elbow surgery, lumbar back surgery, hysterectomy due to dysfunctional uterine bleeding, colonoscopy in the past. Past Anesthesia/Blood Transfusion Reactions: No Reported Reaction Past Psychological History: Depression Smoking Status: Current every day smoker Past Alcohol Use History: None Reported Past Drug Use History: None Reported - Past Family History Mother Family Medical History: Cancer, COPD, Diabetes Mellitus Additional Family Medical History / Comment(s): Mother at age 73 with history of lung cancer and diabetes. Father Family Medical History: COPD, Diabetes Mellitus Additional Family Medical History / Comment(s): Father is alive at age 83 with history of diabetes mellitus with bilateral lower extremity amputations, coronary artery disease, heart failure, atrial fibrillation. Brother(s) Additional Family Medical History / Comment(s): Patient has 2 brothers and 2 sisters and she does not have any contact with them for more than 6 years. Daughter(s) Additional Family Medical History / Comment(s): Patient has 3 children. One at age 34 from heart problems or pneumonia. 1 has seizure disorder and blood cancer, one is healthy. General Exam Limitations: physical limitation General appearance: alert Head exam: Present: atraumatic, normocephalic, normal inspection Eye exam: Present: normal appearance, PERRL. Absent: scleral icterus, conjunctival injection, periorbital swelling, periorbital tenderness Pupils: Present: normal accommodation ENT exam: Present: mucous membranes dry Neck exam: Absent: tenderness, meningismus Respiratory exam: Present: normal lung sounds bilaterally. Absent: respiratory distress, accessory muscle use Cardiovascular Exam: Present: tachycardia. Absent: JVD GI/Abdominal exam: Present: soft. Absent: distended, tenderness Extremities exam: Present: normal capillary refill Right Lower Leg exam: Present: tenderness, swelling, erythema Neurovascular tendon exam: Absent: extremity cold to touch, pallor Left Lower Leg exam: Present: tenderness, swelling, erythema Neurovascular tendon exam: Absent: abnormal cap refill, extremity cold to touch, pallor Back exam: Present: normal inspection. Absent: tenderness, CVA tenderness (R), CVA tenderness (L), rash noted Neurological exam: Present: alert, oriented X3 Psychiatric exam: Present: normal affect, normal mood Skin exam: Present: warm, dry. Absent: cyanosis, diaphoretic, petechiae, pallor Course Vital Signs 06/26/21 06/26/21 06/26/21 17:34 18:39 20:00 Temperature 98 F 98.4 F Pulse Rate 101 H 86 77 Respiratory 16 16 17 Rate Blood Pressure 141/96 156/93 157/96 O2 Sat by Pulse 96 95 95 Oximetry - Reevaluation(s) Reevaluation #1: 06/26/21 19:08 Son called and spoke with nurse Qiana, states that patient has been taking her Xanax in excess. This may be the cause of the patient's generalized weakness. Time: 19:08 EKG Findings - EKG Results: EKG shows: tachycardia (Ventricular rate 101, OR interval 0.162, QRS 0.88, QTc 0.401; occasional PVCs) Medical Decision Making - Medical Decision Making Patient presents with generalized weakness that she states started yesterday after starting Keflex for bilateral lower extremity cellulitis. Patient is somnolent during assessment. There is no evidence of leukocytosis. Patient is afebrile. Electrolytes are unremarkable. Troponin is negative at 0.012 and EKG shows sinus rhythm with occasional PVC. Influenza and coronavirus swabs are negative. She is positive for opiates in her urine however she states state that she takes pain meds for back pain. TSH is low at 0.440. Chest x-ray shows no acute cardiopulmonary disease. Due to the patient's somnolence, a CT was ordered showing no mass or midline shift, no sign of intracranial bleed. The nurse did speak with family member who was concerned for polysubstance abuse including pain medication and Xanax. Patient denies use of Xanax. Case was discussed with Dr. Alejo patient will be admitted to the hospital for generalized weakness, altered mental status and cellulitis of lower extremities. - Lab Data Result diagrams: 06/26/21 18:06 06/26/21 18:06 Lab Results 06/26/21 06/26/21 06/26/21 Range/Units 18:06 18:06 18:06 WBC 9.5 (3.8-10.6) k/uL RBC 4.45 (3.80-5.40) m/uL Hgb 13.3 (11.4-16.0) gm/dL Hct 41.6 (34.0-46.0) % MCV 93.5 (80.0-100.0) fL MCH 29.9 (25.0-35.0) pg MCHC 32.0 (31.0-37.0) g/dL RDW 14.4 (11.5-15.5) % Plt Count 293 (150-450) k/uL MPV 7.0 Neutrophils % 82 % Lymphocytes % 10 % Monocytes % 4 % Eosinophils % 2 % Basophils % 0 % Neutrophils # 7.8 H (1.3-7.7) k/uL Lymphocytes # 1.0 (1.0-4.8) k/uL Monocytes # 0.4 (0-1.0) k/uL Eosinophils # 0.2 (0-0.7) k/uL Basophils # 0.0 (0-0.2) k/uL PT 10.8 (9.0-12.0) sec INR 1.0 (<1.2) APTT 23.3 (22.0-30.0) sec Sodium 136 L (137-145) mmol/L Potassium 3.6 (3.5-5.1) mmol/L Chloride 102 (98-107) mmol/L Carbon Dioxide 26 (22-30) mmol/L Anion Gap 8 mmol/L BUN 13 (7-17) mg/dL Creatinine 0.70 (0.52-1.04) mg/dL Est GFR (CKD-EPI)AfAm >90 (>60 ml/min/1.73 sqM) Est GFR (CKD-EPI)NonAf >90 (>60 ml/min/1.73 sqM) Glucose 111 H (74-99) mg/dL Plasma Lactic Acid Yogesh (0.7-2.0) mmol/L Calcium 8.8 (8.4-10.2) mg/dL Magnesium 1.9 (1.6-2.3) mg/dL Total Bilirubin 0.7 (0.2-1.3) mg/dL AST 19 (14-36) U/L ALT 11 (4-34) U/L Alkaline Phosphatase 76 (38-126) U/L Troponin I (0.000-0.034) ng/mL NT-Pro-B Natriuret Pep pg/mL Total Protein 6.5 (6.3-8.2) g/dL Albumin 3.6 (3.5-5.0) g/dL TSH 0.440 L (0.465-4.680) mIU/L Urine Color Urine Appearance (Clear) Urine pH (5.0-8.0) Ur Specific [place] (1.001-1.035) Urine Protein (Negative) Urine Glucose (UA) (Negative) Urine Ketones (Negative) Urine Blood (Negative) Urine Nitrite (Negative) Urine Bilirubin (Negative) Urine Urobilinogen (<2.0) mg/dL Ur Leukocyte Esterase (Negative) Urine RBC (0-5) /hpf Urine WBC (0-5) /hpf Ur Squamous Epith Cells (0-4) /hpf Coronavirus (PCR) (Not Detectd) Influenza Type A RNA (Not Detectd) Influenza Type B (PCR) (Not Detectd) 06/26/21 06/26/21 06/26/21 Range/Units 18:06 18:06 18:06 WBC (3.8-10.6) k/uL RBC (3.80-5.40) m/uL Hgb (11.4-16.0) gm/dL Hct (34.0-46.0) % MCV (80.0-100.0) fL MCH (25.0-35.0) pg MCHC (31.0-37.0) g/dL RDW (11.5-15.5) % Plt Count (150-450) k/uL MPV Neutrophils % % Lymphocytes % % Monocytes % % Eosinophils % % Basophils % % Neutrophils # (1.3-7.7) k/uL Lymphocytes # (1.0-4.8) k/uL Monocytes # (0-1.0) k/uL Eosinophils # (0-0.7) k/uL Basophils # (0-0.2) k/uL PT (9.0-12.0) sec INR (<1.2) APTT (22.0-30.0) sec Sodium (137-145) mmol/L Potassium (3.5-5.1) mmol/L Chloride (98-107) mmol/L Carbon Dioxide (22-30) mmol/L Anion Gap mmol/L BUN (7-17) mg/dL Creatinine (0.52-1.04) mg/dL Est GFR (CKD-EPI)AfAm (>60 ml/min/1.73 sqM) Est GFR (CKD-EPI)NonAf (>60 ml/min/1.73 sqM) Glucose (74-99) mg/dL Plasma Lactic Acid Yogesh 1.1 (0.7-2.0) mmol/L Calcium (8.4-10.2) mg/dL Magnesium (1.6-2.3) mg/dL Total Bilirubin (0.2-1.3) mg/dL AST (14-36) U/L ALT (4-34) U/L Alkaline Phosphatase (38-126) U/L Troponin I <0.012 (0.000-0.034) ng/mL NT-Pro-B Natriuret Pep 1070 pg/mL Total Protein (6.3-8.2) g/dL Albumin (3.5-5.0) g/dL TSH (0.465-4.680) mIU/L Urine Color Urine Appearance (Clear) Urine pH (5.0-8.0) Ur Specific [place] (1.001-1.035) Urine Protein (Negative) Urine Glucose (UA) (Negative) Urine Ketones (Negative) Urine Blood (Negative) Urine Nitrite (Negative) Urine Bilirubin (Negative) Urine Urobilinogen (<2.0) mg/dL Ur Leukocyte Esterase (Negative) Urine RBC (0-5) /hpf Urine WBC (0-5) /hpf Ur Squamous Epith Cells (0-4) /hpf Coronavirus (PCR) (Not Detectd) Influenza Type A RNA (Not Detectd) Influenza Type B (PCR) (Not Detectd) 06/26/21 06/26/21 06/26/21 Range/Units 18:18 18:18 18:18 WBC (3.8-10.6) k/uL RBC (3.80-5.40) m/uL Hgb (11.4-16.0) gm/dL Hct (34.0-46.0) % MCV (80.0-100.0) fL MCH (25.0-35.0) pg MCHC (31.0-37.0) g/dL RDW (11.5-15.5) % Plt Count (150-450) k/uL MPV Neutrophils % % Lymphocytes % % Monocytes % % Eosinophils % % Basophils % % Neutrophils # (1.3-7.7) k/uL Lymphocytes # (1.0-4.8) k/uL Monocytes # (0-1.0) k/uL Eosinophils # (0-0.7) k/uL Basophils # (0-0.2) k/uL PT (9.0-12.0) sec INR (<1.2) APTT (22.0-30.0) sec Sodium (137-145) mmol/L Potassium (3.5-5.1) mmol/L Chloride (98-107) mmol/L Carbon Dioxide (22-30) mmol/L Anion Gap mmol/L BUN (7-17) mg/dL Creatinine (0.52-1.04) mg/dL Est GFR (CKD-EPI)AfAm (>60 ml/min/1.73 sqM) Est GFR (CKD-EPI)NonAf (>60 ml/min/1.73 sqM) Glucose (74-99) mg/dL Plasma Lactic Acid Yogesh (0.7-2.0) mmol/L Calcium (8.4-10.2) mg/dL Magnesium (1.6-2.3) mg/dL Total Bilirubin (0.2-1.3) mg/dL AST (14-36) U/L ALT (4-34) U/L Alkaline Phosphatase (38-126) U/L Troponin I (0.000-0.034) ng/mL NT-Pro-B Natriuret Pep pg/mL Total Protein (6.3-8.2) g/dL Albumin (3.5-5.0) g/dL TSH (0.465-4.680) mIU/L Urine Color Light Yellow Urine Appearance Clear (Clear) Urine pH 8.0 (5.0-8.0) Ur Specific [place] 1.007 (1.001-1.035) Urine Protein Negative (Negative) Urine Glucose (UA) Negative (Negative) Urine Ketones Negative (Negative) Urine Blood Trace H (Negative) Urine Nitrite Negative (Negative) Urine Bilirubin Negative (Negative) Urine Urobilinogen <2.0 (<2.0) mg/dL Ur Leukocyte Esterase Negative (Negative) Urine RBC 3 (0-5) /hpf Urine WBC 1 (0-5) /hpf Ur Squamous Epith Cells <1 (0-4) /hpf Coronavirus (PCR) Not Detected (Not Detectd) Influenza Type A RNA Not Detected (Not Detectd) Influenza Type B (PCR) Not Detected (Not Detectd) Disposition Clinical Impression: Weakness, At risk for polypharmacy, Cellulitis of both lower extremities Disposition: ADMITTED IP TO THIS HOSP Decision Date: 06/26/21 Decision Time: 20:18
[2021-06-26 18:12] LABS: Basophils % (A) 0 %; Eosinophils # (A) 0.2 k/uL (0-0.7); Eosinophils % (A) 2 %; HCT 41.6 % (34.0-46.0); HGB 13.3 gm/dL (11.4-16.0); Lymphocytes % (A) 10 %; MCH 29.9 pg (25.0-35.0); MCV 93.5 fL (80.0-100.0); Monocytes # (A) 0.4 k/uL (0-1.0); Monocytes % (A) 4 %; Neutrophils # (A) 7.8 k/uL (1.3-7.7); Neutrophils % (A) 82 %; Platelet Count 293 k/uL (150-450); RBC 4.45 m/uL (3.80-5.40); RDW 14.4 % (11.5-15.5); WBC 9.5 k/uL (3.8-10.6)
[2021-06-26 18:20] LABS: Partial Thromboplastin Time 23.3 sec (22.0-30.0); Prothrombin Time 10.8 sec (9.0-12.0)
[2021-06-26 18:26] LABS: ALT 11 U/L (4-34); AST 19 U/L (14-36); African American GFR (CKD) >90 (>60 ml/min/1.73 sqM); Albumin 3.6 g/dL (3.5-5.0); Alkaline Phosphatase 76 U/L (38-126); Anion Gap 8 mmol/L; Blood Urea Nitrogen 13 mg/dL (7-17); Calcium 8.8 mg/dL (8.4-10.2); Carbon Dioxide 26 mmol/L (22-30); Chloride 102 mmol/L (98-107); Glucose 111 mg/dL (74-99); Magnesium 1.9 mg/dL (1.6-2.3); Non-African American GFR(CKD) >90 (>60 ml/min/1.73 sqM); Potassium 3.6 mmol/L (3.5-5.1); Sodium 136 mmol/L (137-145); Total Bilirubin 0.7 mg/dL (0.2-1.3); Total Protein 6.5 g/dL (6.3-8.2)
[2021-06-26 18:35] LABS: Appearance,Urine Clear (Clear); Bilirubin,Urine Negative (Negative); Blood,Urine Trace (Negative); Color,Urine Light Yellow; Glucose,Urine (UA) Negative (Negative); Ketones,Urine Negative (Negative); Leukocyte Esterase,Urine Negative (Negative); Nitrite,Urine Negative (Negative); Protein,Urine Negative (Negative); RBC,Urine 3 /hpf (0-5); Specific Gravity,Urine 1.007 (1.001-1.035); Squamous Epithelial Cell,Urine <1 /hpf (0-4); Urobilinogen,Urine <2.0 mg/dL (<2.0); WBC,Urine 1 /hpf (0-5)
--- NOTE | 2021-06-26 18:42 | XR ---
EXAMINATION TYPE: XR chest 2V DATE OF EXAM: 06/26/2021 COMPARISON: NONE HISTORY: Altered mental status TECHNIQUE: FINDINGS: Heart and mediastinum are normal. Lungs are clear. Diaphragm is normal. Bony thorax is inta ct. There are chest leads. IMPRESSION: Normal chest.
[2021-06-26] MEDS ORDERED: AMPICILLIN-SULBACTAM 3 GM in SODIUM CHLORIDE 0.9% 100 ML IVPB STA (20:44)
[2021-06-26] MEDS ORDERED: NALOXONE 0.4 MG/ML 1 ML VIAL IV PRN (20:45)
[2021-06-26] MEDS ORDERED: IBUPROFEN 400 MG TAB PO PRN (21:00)
[2021-06-26 21:28] LABS: Amphetamine Screen,Urine Not Detected (NotDetected); Barbiturate Screen,Urine Not Detected (NotDetected); Benzodiazepines Screen,Urine Not Detected (NotDetected); Cocaine Screen,Urine Not Detected (NotDetected); Methadone Screen, Urine Not Detected (NotDetected); Opiate Screen,Urine Detected (NotDetected); Oxycodone Screen, Urine Not Detected (NotDetected); Phencyclidine Screen,Urine Not Detected (NotDetected); Tricyclic Antidepressant,Urine Not Detected (NotDetected); Urn Cannabinoid Scrn Not Detected (NotDetected)
[2021-06-26] MEDS: SODIUM CHLORIDE 0.9% 1,000 ML IV SCH (21:29)
--- NOTE | 2021-06-26 21:49 | CT ---
EXAMINATION TYPE: CT brain wo con DATE OF EXAM: 06/26/2021 COMPARISON: None HISTORY: Altered mental status CT DLP: mGycm Automated exposure control for dose reduction was used. Ventricles have normal size. There is no mass effect or midline shift. There is no sign of intracrani al hemorrhage. The calvarium is intact. There is normal aeration of the mastoid sinuses. IMPRESSION: Negative unenhanced head CT scan.
[2021-06-26] MEDS: ACETAMINOPHEN TAB 325 MG TAB PO PRN (22:19)
[2021-06-27] MEDS: ACETAMINOPHEN TAB 325 MG TAB PO PRN (05:29)
[2021-06-27] MEDS ORDERED: ALBUTEROL HFA INHALER INHALATION PRN (07:46)
[2021-06-27] MEDS ORDERED: ALPRAZolam 0.25 MG TAB PO PRN (07:46)
[2021-06-27] MEDS ORDERED: ALBUTEROL NEBULIZED 2.5 MG/3 ML INHALATION PRN (07:46)
[2021-06-27] MEDS ORDERED: diphenhydrAMINE 25 MG CAP PO PRN (07:46)
[2021-06-27] MEDS ORDERED: oxyCODONE-APAP 10-325MG 1 EACH TAB PO PRN (07:48)
[2021-06-27] MEDS: PREGABALIN 50 MG CAP PO SCH ×2 (08:00→19:45)
[2021-06-27] MEDS: FUROSEMIDE 40 MG TAB PO SCH ×2 (08:00→17:26)
[2021-06-27] MEDS: MELOXICAM 7.5 MG TAB PO SCH (08:00)
[2021-06-27] MEDS: ASPIRIN 81 MG PO SCH (08:00)
[2021-06-27] MEDS: POTASSIUM CHLORIDE ER 20 MEQ TAB.ER PO SCH (08:00)
[2021-06-27] MEDS: TRIAMTERENE-HCTZ 37.5-25MG 1 EACH TAB PO SCH (10:57)
[2021-06-27] MEDS: DULoxetine HCL 30 MG CAPSULE.DR PO SCH (10:57)
--- NOTE | 2021-06-27 12:35 | P.HPIM ---
History of Present Illness H&P Date: 06/27/21 HISTORY OF PRESENT ILLNESS This is a 66-year-old female patient of Dr. Holloway with past medical history of COPD, gastroesophageal reflux disease, hyperlipidemia, hypertension, MRSA, tobacco use and dependence. She also has history of chronic pain syndrome previously in the care of Dr. Goss until about 6 months ago. Patient states that he will not see her as a patient anymore because she canceled an appointment. She is scheduled to follow-up with Dr. Abraham. She complains of chronic back pain and pain pump was last filled 6 months ago. Patient was last hospitalized in 2016 at which time she presented with possible overdose of medications unintentional. There were no suicidal ideations at that time. Patient states that she last saw Dr. Roberts on Thursday and she was fine at that time. She was however started on Keflex for lower extremity cellulitis. She denies any other medication changes. She was however admitted to [facility] 1-2 months ago. She states she has not had a Xanax for the past 1 month and she is currently only taking tramadol 50 mg 3 times daily for pain. She has had Percocet in the past but not taking this now. Patient's son was concerned that patient was taking her Xanax and excess, noted mental status changes and apparently not breathing well at home and son called for an ambulance Patient presented to [facility] emergency center. Patient was found to be afebrile, initial heart rate 101, blood pressure 141/96 and pulse ox 96%. CBC was unremarkable. The sodium 136 otherwise elect her lites and renal function normal. Blood sugar 111. Liver function tests were normal. Magnesium 1.9. TSH 0.440. Lactic acid 1.1. Troponin negative. ProBNP 1070.Coronavirus PCR, influenza A and influenza B not detected. Urinalysis was negative for infection. Chest x-ray was normal. CAT scan of the brain was negative. Patient has been admitted to the [facility] floor, started on IV antibiotics. REVIEW OF SYSTEMS Constitutional: No fever, no chills, no night sweats. No weight change. No weakness, fatigue or lethargy. No daytime sleepiness. EENT: No headache. No blurred vision or double vision, no loss of vision. No loss of Hearing, no ringing in the ears, no dizziness. No nasal drainage or congestion. No epistaxis. No sore throat. Lungs: No shortness of breath, cough, no sputum production. No wheezing. Cardiovascular: No chest pain, no lower extremity edema. No palpitations. No paroxysmal nocturnal dyspnea. No orthopnea. No lightheadedness or dizziness. No syncopal episodes. Abdominal: No abdominal pain. No nausea, vomiting. No diarrhea. No constipat ion. No bloody or tarry stools. No loss of appetite. Genitourinary: No dysuria, increased frequency, urgency. No urinary retention. Musculoskeletal: No myalgias. No muscle weakness, no gait dysfunction, no frequent falls. No back pain. No neck pain. Integumentary: No wounds, no lesions. No rash or pruritus. No unusual bruising. No change in hair or nails. Neurologic: No aphasia. No facial droop. No change in mentation. No head injury. No headache. No paralysis. No paresthesia. Psychiatric: No depression. No anxiety. No mood swings. Endocrine: No abnormal blood sugars. No weight change. No excessive sweating or thirst. No cold intolerance. SOCIAL HISTORY Patient is a smoker one pack per day since she was 16 years of age. 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 FAMILY HISTORY Mother at age 73 with history of lung cancer and diabetes, COPD. Father is alive at age 78 with history of diabetes and bilateral lower extremity amputations, coronary artery disease, heart failure and atrial fibrillation. Patient has 2 brothers and 2 sisters and she does not have contact with them for more than 6 years. Patient has 3 children. One at age 34 from heart problems or pneumonia. 1 has seizure disorder and blood cancer, one is healthy. PHYSICAL EXAMINATION Gen: This is a 66-year-old female. She is resting in bed, she wakens easily to verbal stimuli. She does not appear to be in any acute distress. Patient is able to answer questions appropriately. HEENT: Head is atraumatic, normocephalic. Pupils equal, round. Sclerae is anicteric. NECK: Supple. No JVD. No lymphadenopathy. No thyromegaly. LUNGS: Clear to auscultation. No wheezes or rhonchi. No intercostal retractions. HEART: Regular rate and rhythm. No murmur. ABDOMEN: Soft. Bowel sounds are present. No masses. No tenderness. EXTREMITIES: 1+ pedal edema. No calf tenderness. Mild erythema bilateral lower extremities. NEUROLOGICAL: Patient is awake, alert and oriented x3. Cranial nerves 2 through 12 are grossly intact. ASSESSMENT AND PLAN 1. Possible accidental ingestion of medications presenting with toxic metabolic encephalopathy, difficulty breathing and weakness. 2. Toxic metabolic encephalopathy, back to baseline. Family concerned the patient is taking Xanax and excess which patient flatly denies. Patient's only new medication was Keflex. Patient will be resumed on Xanax 0.25 mg twice daily as needed, tramadol, no Percocet. 3. Bilateral lower extremity cellulitis. Patient was started outpatient on Keflex. Patient will be continued on ceftriaxone with Silvadene wraps to bilateral lower extremity. 4. COPD, stable without exacerbation. Continue albuterol nebulizer treatments 4 times daily as needed. 5. Gastroesophageal reflux disease. Continue Protonix 40 mg at bedtime, Carafate 1 g at bedtime. 6. Hyperlipidemia. 7. Hypertension. Continue Maxzide 1 daily a low 8. Chronic back pain. Continue tramadol 50 mg 3 times daily as needed, Lyrica 50 mg twice daily, low back 60 mg at bedtime. 9. Seasonal ALLERGIES. 10. DVT prophylaxis. Heparin subcu. 11. COVID-19 testing negative. Patient will be admitted to the hospital for a minimum of 2 night stay. DISCHARGE PLAN Home most likely. PT and OT consults added. Impression and plan of care have been directed as dictated by the signing phys letha. Kelly Guerrier nurse practitioner acting as scribe for signing physician. Past Medical History Past Medical History: COPD, GERD/Reflux, Hyperlipidemia, Hypertension History of Any Multi-Drug Resistant Organisms: None Reported, MRSA Date of last positivie culture/infection: 2008 MDRO Source:: Axilla, Cheek Past Surgical History: Back Surgery, Cholecystectomy, Heart Catheterization, Hernia Repair, Hysterectomy, Orthopedic Surgery Additional Past Surgical History / Comment(s): bilateral knee scope, left carpal tunnel, left elbow surgery, lumbar back surgery, hysterectomy due to dysfunctional uterine bleeding, colonoscopy in the past. Past Anesthesia/Blood Transfusion Reactions: No Reported Reaction Past Psychological History: Depression Smoking Status: Current every day smoker Past Alcohol Use History: None Reported Past Drug Use History: None Reported - Past Family History Mother Family Medical History: Cancer, COPD, Diabetes Mellitus Additional Family Medical History / Comment(s): Mother at age 73 with h istory of lung cancer and diabetes. Father Family Medical History: COPD, Diabetes Mellitus Additional Family Medical History / Comment(s): Father is alive at age 83 with history of diabetes mellitus with bilateral lower extremity amputations, c oronary artery disease, heart failure, atrial fibrillation. Brother(s) Additional Family Medical History / Comment(s): Patient has 2 brothers and 2 sisters and she does not have any contact with them for more than 6 years. Daughter(s) Additional Family Medical History / Comment(s): Patient has 3 children. One at age 34 from heart problems or pneumonia. 1 has seizure disorder and blood cancer, one is healthy. Medications and Allergies Home Medications Medication Instructions Recorded Confirmed Type Aspirin [Adult Low Dose Aspirin EC] 81 mg PO DAILY 07/01/16 06/26/21 History Sucralfate [Carafate] 1 gm PO 07/01/16 06/26/21 History ALPRAZolam [Xanax] 0.25 mg PO BID PRN 06/26/21 06/26/21 History Albuterol Nebulized [Ventolin 2.5 mg INHALATION RT-QID PRN 06/26/21 06/26/21 History Nebulized] Albuterol Sulfate [Proair 1 puff INHALATION RT-QID PRN 06/26/21 06/26/21 History Respiclick] Cephalexin [Keflex] 500 mg PO QID 06/26/21 06/26/21 History DULoxetine HCL [Cymbalta] 30 mg PO DAILY 06/26/21 06/26/21 History DULoxetine HCL [Cymbalta] 60 mg PO HS 06/26/21 06/26/21 History Furosemide [Lasix] 40 mg PO BID@0800,1400 06/26/21 06/26/21 History Meloxicam [Mobic] 15 mg PO DAILY 06/26/21 06/26/21 History Nitroglycerin Sl Tabs [Nitrostat] 0.4 mg SL Q5M PRN 06/26/21 06/26/21 History Omeprazole 20 mg PO HS 06/26/21 06/26/21 History Potassium Chloride ER [K-Dur 20] 20 meq PO DAILY 06/26/21 06/26/21 History Pregabalin 50 mg PO BID 06/26/21 06/26/21 History SILVER sulfADIAZINE Cream 1 applic TOPICAL DAILY 06/26/21 06/26/21 History [Silvadene 1% Cream] Triamterene-Hctz 37.5-25Mg 1 tab PO DAILY 06/26/21 06/26/21 History [Maxzide 37.5-25] diphenhydrAMINE HCL [Benadryl] 25 mg PO HS PRN 06/26/21 06/26/21 History Allergies Allergy/AdvReac Type Severity Reaction Status Date / Time sulfamethoxazole Allergy Rash/Hives Verified 06/26/21 21:09 [From ] trimethoprim [From ] Allergy Rash/Hives Verified 06/26/21 21:09 Physical Exam Vitals: Vital Signs Temp Pulse Pulse Resp BP BP Pulse Ox 06/27/21 07:30 98.2 F 85 18 146/81 95 06/27/21 02:12 98.4 F 97 18 163/80 94 L 06/26/21 23:17 97.9 F 109 H 18 164/89 96 06/26/21 20:00 98.4 F 77 17 157/96 95 06/26/21 18:39 86 16 156/93 95 06/26/21 17:34 98 F 101 H 16 141/96 96 Intake and Output 06/26/21 06/27/21 06/27/21 22:59 06:59 14:59 Output Total 500 Balance -500 Output: Urine 500 Other: Voiding Method Incontinent External Catheter Weight 99.79 kg 99.79 kg Results CBC & Chem 7: 06/26/21 18:06 06/26/21 18:06 Labs: Abnormal Lab Results - Last 24 Hours (Table) 06/26/21 06/26/21 06/26/21 Range/Units 18:06 18:06 18:18 Neutrophils # 7.8 H (1.3-7.7) k/uL Sodium 136 L (137-145) mmol/L Glucose 111 H (74-99) mg/dL TSH 0.440 L (0.465-4.680) mIU/L Urine Blood Trace H (Negative) Urine Opiates Screen (NotDetected) 05/11/22 Range/Units 21:16 Neutrophils # (1.3-7.7) k/uL Sodium (137-145) mmol/L Glucose (74-99) mg/dL TSH (0.465-4.680) mIU/L Urine Blood (Negative) Urine Opiates Screen Detected H (NotDetected) Thrombosis Risk Factor Assmnt - Choose All That Apply Any of the Below Risk Factors Present?: Yes Each Factor Represents 1 point: Abnormal pulmonary function (COPD), Obesity (BMI >25) Other Risk Factors: Yes Each Risk Factor Represents 2 Points: Age 61-74 years Thrombosis Risk Factor Assessment Total Risk Factor Score: 4 Thrombosis Risk Factor Assessment Level: Moderate Risk
[2021-06-27 14:04] VITALS: RESP 19
[2021-06-27] MEDS: traMADol 50 MG TAB PO PRN (19:44)
[2021-06-27] MEDS: HEPARIN SODIUM,PORCINE/PF 5,000 UNIT/0.5 ML SYRINGE SQ SCH (19:45)
[2021-06-27] MEDS: SODIUM CHLORIDE 0.9% 1,000 ML IV SCH (19:55)
[2021-06-27] MEDS ORDERED: DULoxetine HCL 60 MG CAPSULE.DR PO SCH (21:00)
[2021-06-27] MEDS ORDERED: PANTOPRAZOLE 40 MG TABLET PO SCH (21:00)
[2021-06-27] MEDS ORDERED: SUCRALFATE 1 GM TAB PO SCH (21:00)
[2021-06-28] MEDS ORDERED: traMADol 50 MG TAB ONE (03:09)
[2021-06-28] MEDS: SODIUM CHLORIDE 0.9% 1,000 ML IV SCH (05:55)
[2021-06-28 07:07] VITALS: TEMP 98
[2021-06-28] MEDS: FUROSEMIDE 40 MG TAB PO SCH (07:38)
[2021-06-28] MEDS: traMADol 50 MG TAB PO PRN (07:38)
[2021-06-28 07:41] VITALS: BP 170/91; PULSE 83
[2021-06-28] MEDS: HEPARIN SODIUM,PORCINE/PF 5,000 UNIT/0.5 ML SYRINGE SQ SCH (08:17)
[2021-06-28] MEDS: PREGABALIN 50 MG CAP PO SCH (08:17)
[2021-06-28] MEDS: TRIAMTERENE-HCTZ 37.5-25MG 1 EACH TAB PO SCH (08:17)
[2021-06-28] MEDS: POTASSIUM CHLORIDE ER 20 MEQ TAB.ER PO SCH (08:18)
[2021-06-28] MEDS: MELOXICAM 7.5 MG TAB PO SCH (08:18)
[2021-06-28] MEDS: DULoxetine HCL 30 MG CAPSULE.DR PO SCH (08:18)
[2021-06-28] MEDS: ASPIRIN 81 MG PO SCH (08:18)
--- NOTE | 2021-06-28 08:52 | P.PN ---
Subjective Progress Note Date: 06/28/21 HISTORY OF PRESENT ILLNESS This is a 66-year-old female patient of Dr. Holloway with past medical history of COPD, gastroesophageal reflux disease, hyperlipidemia, hypertension, MRSA, to bacco use and dependence. She also has history of chronic pain syndrome previously in the care of Dr. Goss until about 6 months ago. Patient states that he will not see her as a patient anymore because she canceled an appointment. She is scheduled to follow-up with Dr. Abraham. She complains of chronic back pain and pain pump was last filled 6 months ago. Patient was last hospitalized in 2016 at which time she presented with possible overdose of medications unintentional. There were no suicidal ideations at that time. Patient states that she last saw Dr. Roberts on Thursday and she was fine at that time. She was however started on Keflex for lower extremity cellulitis. She denies any other medication changes. She was however admitted to [facility] 1-2 months ago. She states she has not had a Xanax for the past 1 month and she is currently only taking tramadol 50 mg 3 times daily for pain. She has had Percocet in the past but not taking this now. Patient's son was concerned that patient was taking her Xanax and excess, noted mental status changes and apparently not breathing well at home and son called for an ambulance Patient presented to [facility] emergency center. Patient was found to be afebrile, initial heart rate 101, blood pressure 141/96 and pulse ox 96%. CBC was unremarkable. The sodium 136 otherwise elect her lites and renal function normal. Blood sugar 111. Liver function tests were normal. Magnesium 1.9. TSH 0.440. Lactic acid 1.1. Troponin negative. ProBNP 1070.Coronavirus PCR, influenza A and influenza B not detected. Urinalysis was negative for infection. Chest x-ray was normal. CAT scan of the brain was negative. Patient has been admitted to the MedSur floor, started on IV antibiotics. 06/28: Patient is feeling much better today she is fully awake alert and interactive, no reaction to any medication at this point patient is not doing any narcotic or benzodiazepine she is on minimum amount of tramadol. That very clear minded today her cellulitis has improved significantly on the IV Rocephin will be switching patient to doxycycline oral she claims she had a reaction to Keflex which I don't believe is a reaction to antibiotics patient is doesn't feel safe to go back on it at this point. We'll continue so that I cream as well patient be seen her primary care physician in the next few days. REVIEW OF SYSTEMS Constitutional: No fever, no chills, no night sweats. No weight change. No weakness, fatigue or lethargy. No daytime sleepiness. EENT: No headache. No blurred vision or double vision, no loss of vision. No loss of Hearing, no ringing in the ears, no dizziness. No nasal drainage or congestion. No epistaxis. No sore throat. Lungs: No shortness of breath, cough, no sputum production. No wheezing. Cardiovascular: No chest pain, no lower extremity edema. No palpitations. No paroxysmal nocturnal dyspnea. No orthopnea. No lightheadedness or dizziness. No syncopal episodes. Abdominal: No abdominal pain. No nausea, vomiting. No diarrhea. No c onstipation. No bloody or tarry stools. No loss of appetite. Genitourinary: No dysuria, increased frequency, urgency. No urinary retention. Musculoskeletal: No myalgias. No muscle weakness, no gait dysfunction, no frequent falls. No back pain. No neck pain. Integumentary: No wounds, no lesions. No rash or pruritus. No unusual bruising. No change in hair or nails. Neurologic: No aphasia. No facial droop. No change in mentation. No head injury. No headache. No paralysis. No paresthesia. Psychiatric: No depression. No anxiety. No mood swings. Endocrine: No abnormal blood sugars. No weight change. No excessive sweating or thirst. No cold intolerance. PHYSICAL EXAMINATION Gen: This is a 66-year-old female. She is resting in bed, she wakens easily to verbal stimuli. She does not appear to be in any acute distress. Patient is able to answer questions appropriately. HEENT: Head is atraumatic, normocephalic. Pupils equal, round. Sclerae is anicteric. NECK: Supple. No JVD. No lymphadenopathy. No thyromegaly. LUNGS: Clear to auscultation. No wheezes or rhonchi. No intercostal retractions. HEART: Regular rate and rhythm. No murmur. ABDOMEN: Soft. Bowel sounds are present. No masses. No tenderness. EXTREMITIES: 1+ pedal edema. No calf tenderness. Mild erythema bilateral lower extremities. NEUROLOGICAL: Patient is awake, alert and oriented x3. Cranial nerves 2 through 12 are grossly intact. ASSESSMENT AND PLAN 1. Possible accidental ingestion of medications presenting with toxic metabolic encephalopathy, much better so far has a clear patient is back to her baseline. 2. Toxic metabolic encephalopathy, back to baseline. Family concerned the patient is taking Xanax and excess which patient flatly denies. Patient's only new medication was Keflex. Patient will be resumed on Xanax 0.25 mg twice daily as needed, tramadol, no Percocet. 3. Bilateral lower extremity cellulitis. Patient be switched to oral doxycycline and continues to the dining cream follow-up as an outpatient with her PCP. 4. COPD, stable without exacerbation. Continue albuterol nebulizer treatments 4 times daily as needed. 5. Gastroesophageal reflux disease. Continue Protonix 40 mg at bedtime, Carafate 1 g at bedtime. 6. Hyperlipidemia. 7. Hypertension. Continue Maxzide 1 daily a low 8. Chronic back pain. Continue tramadol 50 mg 3 times daily as needed, Lyrica 50 mg twice daily, low back 60 mg at bedtime. 9. Seasonal ALLERGIES. Discharge planning: Patient discharged home follow-up with home care and her primary care physician in the next few days. Objective - Vital Signs Vital signs: Vital Signs Temp 98 F 06/28/21 07:06 Pulse 83 06/28/21 07:40 Resp 19 06/28/21 07:06 BP 170/91 06/28/21 07:40 Pulse Ox 97 06/28/21 07:06 Intake & Output 06/27/21 06/28/21 06/28/21 18:59 06:59 18:59 Intake Total 1080 1080 Output Total 700 2000 Balance 380 -920 Intake: Oral 1080 1080 Output: Urine 700 1999 Other: Voiding Method Incontinent Incontinent Incontinent External Catheter External Catheter External Catheter # Voids 1 # Bowel Movements 1 - Labs CBC & Chem 7: 06/26/21 18:06 06/26/21 18:06 Labs: Microbiology - Last 24 Hours (Table) 06/26/21 18:00 Blood Culture - Preliminary Blood No Growth after 24 hours 06/26/21 18:15 Blood Culture - Preliminary Blood No Growth after 24 hours
--- NOTE | 2021-06-28 14:48 | P.DS ---
Providers Date of admission: 06/26/21 20:45 Attending physician: Wali Mack Primary care physician: Dwayne Holloway [facility] Course: HISTORY OF PRESENT ILLNESS This is a 66-year-old female patient of Dr. Holloway with past medical history of COPD, gastroesophageal reflux disease, hyperlipidemia, hypertension, MRSA, tobacco use and dependence. She also has history of chronic pain syndrome previously in the care of Dr. Goss until about 6 months ago. Patient states that he will not see her as a patient anymore because she canceled an appointment. She is scheduled to follow-up with Dr. Abraham. She complains of chronic back pain and pain pump was last filled 6 months ago. Patient was last hospitalized in 2016 at which time she presented with possible overdose of medications unintentional. There were no suicidal ideations at that time. Patient states that she last saw Dr. Roberts on Thursday and she was fine at that time. She was however started on Keflex for lower extremity cellulitis. She denies any other medication changes. She was however admitted to [facility] 1-2 months ago. She states she has not had a Xanax for the past 1 month and she is currently only taking tramadol 50 mg 3 times daily for pain. She has had Percocet in the past but not taking this now. Patient's son was concerned that patient was taking her Xanax and excess, noted mental status changes and apparently not breathing well at home and son called for an ambulance Patient presented to [facility] emergency center. Patient was found to be afebrile, initial heart rate 101, blood pressure 141/96 and pulse ox 96%. CBC was unremarkable. The sodium 136 otherwise elect her lites and renal function normal. Blood sugar 111. Liver function tests were normal. Magnesium 1.9. TSH 0.440. Lactic acid 1.1. Troponin negative. ProBNP 1070.Coronavirus PCR, influenza A and influenza B not detected. Urinalysis was negative for infection. Chest x-ray was normal. CAT scan of the brain was negative. Patient has been admitted to the MedSurg floor, started on IV antibiotics. 06/28: Patient is feeling much better today she is fully awake alert and interactive, no reaction to any medication at this point patient is not doing any narcotic or benzodiazepine she is on minimum amount of tramadol. That very clear minded today her cellulitis has improved significantly on the IV Rocephin will be switching patient to doxycycline oral she claims she had a reaction to Keflex which I don't believe is a reaction to antibiotics patient is doesn't feel safe to go back on it at this point. We'll continue so that I cream as well patient be seen her primary care physician in the next few days. REVIEW OF SYSTEMS Constitutional: No fever, no chills, no night sweats. No weight change. No weakness, fatigue or lethargy. No daytime sleepiness. EENT: No headache. No blurred vision or double vision, no loss of vision. No loss of Hearing, no ringing in the ears, no dizziness. No nasal drainage or congestion. No epistaxis. No sore throat. Lungs: No shortness of breath, cough, no sputum production. No wheezing. Cardiovascular: No chest pain, no lower extremity edema. No palpitations. No paroxysmal nocturnal dyspnea. No orthopnea. No lightheadedness or dizziness. No syncopal episodes. Abdominal: No abdominal pain. No nausea, vomiting. No diarrhea. No constipation. No bloody or tarry stools. No loss of appetite. Genitourinary: No dysuria, increased frequency, urgency. No urinary retention. Musculoskeletal: No myalgias. No muscle weakness, no gait dysfunction, no frequent falls. No back pain. No neck pain. Integumentary: No wounds, no lesions. No rash or pruritus. No unusual bruising. No change in hair or nails. Neurologic: No aphasia. No facial droop. No change in mentation. No head injury. No headache. No paralysis. No paresthesia. Psychiatric: No depression. No anxiety. No mood swings. Endocrine: No abnormal blood sugars. No weight change. No excessive sweating or thirst. No cold intolerance. PHYSICAL EXAMINATION Gen: This is a 66-year-old female. She is resting in bed, she wakens easily to verbal stimuli. She does not appear to be in any acute distress. Patient is able to answer questions appropriately. HEENT: Head is atraumatic, normocephalic. Pupils equal, round. Sclerae is anicteric. NECK: Supple. No JVD. No lymphadenopathy. No thyromegaly. LUNGS: Clear to auscultation. No wheezes or rhonchi. No intercostal retractions. HEART: Regular rate and rhythm. No murmur. ABDOMEN: Soft. Bowel sounds are present. No masses. No tenderness. EXTREMITIES: 1+ pedal edema. No calf tenderness. Mild erythema bilateral lower extremities. NEUROLOGICAL: Patient is awake, alert and oriented x3. Cranial nerves 2 through 12 are grossly intact. ASSESSMENT AND PLAN 1. Possible accidental ingestion of medications presenting with toxic metabolic encephalopathy, much better so far has a clear patient is back to her baseline. 2. Toxic metabolic encephalopathy, back to baseline. Family concerned the patient is taking Xanax and excess which patient flatly denies. Patient's only new medication was Keflex. Patient will be resumed on Xanax 0.25 mg twice daily as needed, tramadol, no Percocet. 3. Bilateral lower extremity cellulitis. Patient be switched to oral doxycycline and continues to the dining cream follow-up as an outpatient with her PCP. 4. COPD, stable without exacerbation. Continue albuterol nebulizer treatments 4 times daily as needed. 5. Gastroesophageal reflux disease. Continue Protonix 40 mg at bedtime, Carafate 1 g at bedtime. 6. Hyperlipidemia. 7. Hypertension. Continue Maxzide 1 daily a low 8. Chronic back pain. Continue tramadol 50 mg 3 times daily as needed, Lyrica 50 mg twice daily, low back 60 mg at bedtime. 9. Seasonal ALLERGIES. Discharge planning: Patient discharged home follow-up with home care and her primary care physician in the next few days. Time spend on Patient Discharge: 37 minutes. Plan - Discharge Summary New Discharge Prescriptions: New Acetaminophen Tab [Tylenol] 650 mg PO Q6HR PRN tab PRN Reason: Mild Pain Or Fever > 100.5 traMADol HCl [Ultram] 50 mg PO TID PRN tab PRN Reason: Analgesia Doxycycline Hyclate 100 mg PO Q12H 1 Days #20 tab Continue Sucralfate [Carafate] 1 gm PO HS Aspirin [Adult Low Dose Aspirin EC] 81 mg PO DAILY Triamterene-Hctz 37.5-25Mg [Maxzide 37.5-25] 1 tab PO DAILY Pregabalin 50 mg PO BID DULoxetine HCL [Cymbalta] 60 mg PO HS ALPRAZolam [Xanax] 0.25 mg PO BID PRN PRN Reason: Anxiety Albuterol Nebulized [Ventolin Nebulized] 2.5 mg INHALATION RT-QID PRN PRN Reason: Shortness Of Breath SILVER sulfADIAZINE Cream [Silvadene 1% Cream] 1 applic TOPICAL DAILY Nitroglycerin Sl Tabs [Nitrostat] 0.4 mg SL Q5M PRN PRN Reason: Chest Pain Meloxicam [Mobic] 15 mg PO DAILY diphenhydrAMINE HCL [Benadryl] 25 mg PO HS PRN PRN Reason: Insomnia Furosemide [Lasix] 40 mg PO BID@0800,1400 Potassium Chloride ER [K-Dur 20] 20 meq PO DAILY Omeprazole 20 mg PO HS Albuterol Sulfate [Proair Respiclick] 1 puff INHALATION RT-QID PRN PRN Reason: Shortness Of Breath DULoxetine HCL [Cymbalta] 30 mg PO DAILY Discontinued Cephalexin [Keflex] 500 mg PO QID Discharge Medication List Aspirin [Adult Low Dose Aspirin EC] 81 mg PO DAILY 07/01/16 [History] Sucralfate [Carafate] 1 gm PO HS 07/01/16 [History] ALPRAZolam [Xanax] 0.25 mg PO BID PRN 06/26/21 [History] Albuterol Nebulized [Ventolin Nebulized] 2.5 mg INHALATION RT-QID PRN 06/26/21 [History] Albuterol Sulfate [Proair Respiclick] 1 puff INHALATION RT-QID PRN 06/26/21 [History] DULoxetine HCL [Cymbalta] 30 mg PO DAILY 06/26/21 [History] DULoxetine HCL [Cymbalta] 60 mg PO HS 06/26/21 [History] Furosemide [Lasix] 40 mg PO BID@0800,1400 06/26/21 [History] Meloxicam [Mobic] 15 mg PO DAILY 06/26/21 [History] Nitroglycerin Sl Tabs [Nitrostat] 0.4 mg SL Q5M PRN 06/26/21 [History] Omeprazole 20 mg PO HS 06/26/21 [History] Potassium Chloride ER [K-Dur 20] 20 meq PO DAILY 06/26/21 [History] Pregabalin 50 mg PO BID 06/26/21 [History] SILVER sulfADIAZINE Cream [Silvadene 1% Cream] 1 applic TOPICAL DAILY 06/26/21 [History] Triamterene-Hctz 37.5-25Mg [Maxzide 37.5-25] 1 tab PO DAILY 06/26/21 [History] diphenhydrAMINE HCL [Benadryl] 25 mg PO HS PRN 06/26/21 [History] Acetaminophen Tab [Tylenol] 650 mg PO Q6HR PRN tab 06/28/21 [Rx] Doxycycline Hyclate 100 mg PO Q12H 1 Days #20 tab 06/28/21 [Rx] traMADol HCl [Ultram] 50 mg PO TID PRN tab 06/28/21 [Rx] Follow up Appointment(s)/Referral(s): Dwayne Holloway MD [Primary Care Provider] - 07/02/21 10:30 am Patient Instructions/Handouts: Cellulitis (GEN), Weakness (DC), Altered Mental Status (GEN) Discharge Disposition: HOME WITH HOME HEALTH SERVICES
== END 2021-06-28 11:53 | disposition home health service (06) ==
LOC: EC 17:29 → 4SSUR 20:45 → INTOOBSV 20:45 → 4SSUR 21:21 → UNDODISIN 06-28 11:53
PROVIDERS: ADMIT Internal Medicine Geriatric Medicine; ATTEND Internal Medicine Geriatric Medicine
DX: G92.8 Other toxic encephalopathy (principal); L03.115 Cellulitis of right lower limb; L03.116 Cellulitis of left lower limb; J44.9 Chronic obstructive pulmonary disease, unspecified; K21.9 Gastro-esophageal reflux disease without esophagitis; E78.5 Hyperlipidemia, unspecified; I10 Essential (primary) hypertension; Z86.14 Personal history of Methicillin resistant Staphylococcus aureus infection; G89.4 Chronic pain syndrome; Z20.822 Contact with and (suspected) exposure to COVID-19; M54.9 Dorsalgia, unspecified; J30.2 Other seasonal allergic rhinitis; R32 Unspecified urinary incontinence; F32.A Depression, unspecified; F17.210 Nicotine dependence, cigarettes, uncomplicated; E66.9 Obesity, unspecified; Z68.37 Body mass index [BMI] 37.0-37.9, adult; R53.1 Weakness; R11.2 Nausea with vomiting, unspecified; R53.81 Other malaise; R63.0 Anorexia; R00.0 Tachycardia, unspecified; I49.3 Ventricular premature depolarization; Z90.49 Acquired absence of other specified parts of digestive tract; Z90.710 Acquired absence of both cervix and uterus; Z79.82 Long term (current) use of aspirin; Z79.899 Other long term (current) drug therapy; Z79.1 Long term (current) use of non-steroidal anti-inflammatories (NSAID); Z88.2 Allergy status to sulfonamides; Z83.3 Family history of diabetes mellitus; Z82.49 Family history of ischemic heart disease and other diseases of the circulatory system; Z82.0 Family history of epilepsy and other diseases of the nervous system; Z82.5 Family history of asthma and other chronic lower respiratory diseases; Z80.1 Family history of malignant neoplasm of trachea, bronchus and lung; Z80.6 Family history of leukemia
CPT/HCPCS: 96366; 96367; 96372 ×2; 96361; 96365; 96375; 99285; 36415; 93005; 97162; 83880; 80053; 83605; 83735; 84443; 84484; 85025; 85610; 85730; 81001; 87040; 80306; 87502; 87635; 71046; 70450; G0378 ×3; J2405; J0696 ×2; J0295; J1644 ×2

== ENCOUNTER 2021-07-04 20:59 | Emergency (ER) | payer MEDICARE ==
[2021-07-04] MEDS ORDERED: MORPHINE SULFATE 4 MG/ML SYRINGE IV STA (21:18)
[2021-07-04] MEDS ORDERED: SODIUM CHLORIDE 0.9% 1,000 ML IV STA (21:18)
--- NOTE | 2021-07-04 21:18 | ED ---
Weakness HPI - General Chief complaint: Abdominal Pain Stated complaint: Chest/Abd Pain Time Seen by Provider: 07/04/21 21:13 Source: patient, EMS, RN notes reviewed, old records reviewed Mode of arrival: EMS Limitations: no limitations - History of Present Illness Initial comments: Patient very upset that she is in the ER currently this is a 66-year-old female here in the emergency department because her son called EMS. Patient was apparently sent to the ER can she is having show breathing and she was complaining of chest pain to his son. Patient is recent hospitalization for weakness and cellulitis she is on current antibiotics. Patient has no travel history or sick contacts. She states she's never she has not leave the house. Patient denies any fevers, does have COPD, again is on antibiotics for lower extremity cellulitis chronic. Patient is denying any fevers maybe some chills, positive for cough MD Complaint: generalized weakness, lack of energy -: days(s) Location: generalized Severity: moderate Severity scale (1-10): 4 Quality: numbness Consistency: constant Improves with: none Worsens with: none Context: recent illness, history of similar Associated Symptoms: chest pain, fever/chills, nausea/vomiting, shortness of breath - Related Data Home Medications Medication Instructions Recorded Confirmed Aspirin [Adult Low Dose Aspirin EC] 81 mg PO DAILY 07/01/16 07/04/21 Sucralfate [Carafate] 1 gm PO HS 07/01/16 07/04/21 ALPRAZolam [Xanax] 0.25 mg PO BID PRN 06/26/21 07/04/21 Albuterol Nebulized [Ventolin 2.5 mg INHALATION RT-QID PRN 06/26/21 07/04/21 Nebulized] Albuterol Sulfate [Proair 1 puff INHALATION RT-QID PRN 06/26/21 07/04/21 Respiclick] DULoxetine HCL [Cymbalta] 30 mg PO DAILY 06/26/21 07/04/21 DULoxetine HCL [Cymbalta] 60 mg PO HS 06/26/21 07/04/21 Furosemide [Lasix] 40 mg PO BID@0800,1400 06/26/21 07/04/21 Meloxicam [Mobic] 15 mg PO DAILY 06/26/21 07/04/21 Nitroglycerin Sl Tabs [Nitrostat] 0.4 mg SL Q5M PRN 06/26/21 07/04/21 Omeprazole 20 mg PO HS 06/26/21 07/04/21 Potassium Chloride ER [K-Dur 20] 20 meq PO DAILY 06/26/21 07/04/21 Pregabalin 50 mg PO BID 06/26/21 07/04/21 SILVER sulfADIAZINE Cream 1 applic TOPICAL DAILY 06/26/21 07/04/21 [Silvadene 1% Cream] Triamterene-Hctz 37.5-25Mg 1 tab PO DAILY 06/26/21 07/04/21 [Maxzide 37.5-25] diphenhydrAMINE HCL [Benadryl] 25 mg PO HS PRN 06/26/21 07/04/21 Previous Rx's Medication Instructions Recorded Acetaminophen Tab [Tylenol] 650 mg PO Q6HR PRN tab 06/28/21 Doxycycline Hyclate 100 mg PO Q12H 1 Days #20 tab 06/28/21 traMADol HCl [Ultram] 50 mg PO TID PRN tab 06/28/21 Allergies Allergy/AdvReac Type Severity Reaction Status Date / Time sulfamethoxazole Allergy Rash/Hives Verified 07/04/21 22:22 [From ] trimethoprim [From ] Allergy Rash/Hives Verified 07/04/21 22:22 Review of Systems ROS Statement: Those systems with pertinent positive or pertinent negative responses have been documented in the HPI. ROS Other: All systems not noted in ROS Statement are negative. Past Medical History Past Medical History: COPD, GERD/Reflux, Hyperlipidemia, Hypertension History of Any Multi-Drug Resistant Organisms: MRSA Date of last positivie culture/infection: 2008 MDRO Source:: Axilla, Cheek Past Surgical History: Back Surgery, Cholecystectomy, Heart Catheterization, Hernia Repair, Hysterectomy, Orthopedic Surgery Additional Past Surgical History / Comment(s): bilateral knee scope, left carpal tunnel, left elbow surgery, lumbar back surgery, hysterectomy due to dysfunctional uterine bleeding, colonoscopy in the past. Past Anesthesia/Blood Transfusion Reactions: No Reported Reaction Past Psychological History: Depression Smoking Status: Current every day smoker Past Alcohol Use History: None Reported Past Drug Use History: None Reported - Past Family History Mother Family Medical History: Cancer, COPD, Diabetes Mellitus Additional Family Medical History / Comment(s): Mother at age 73 with history of lung cancer and diabetes. Father Family Medical History: COPD, Diabetes Mellitus Additional Family Medical History / Comment(s): Father is alive at age 83 with history of diabetes mellitus with bilateral lower extremity amputations, coronary artery disease, heart failure, atrial fibrillation. Brother(s) Additional Family Medical History / Comment(s): Patient has 2 brothers and 2 sisters and she does not have any contact with them for more than 6 years. Daughter(s) Additional Family Medical History / Comment(s): Patient has 3 children. One at age 34 from heart problems or pneumonia. 1 has seizure disorder and blood cancer, one is healthy. General Exam General appearance: alert, in no apparent distress, anxious Head exam: Present: atraumatic, normocephalic, normal inspection Eye exam: Present: normal appearance, PERRL, EOMI. Absent: scleral icterus, conjunctival injection, periorbital swelling ENT exam: Present: normal exam, mucous membranes moist Neck exam: Present: normal inspection. Absent: tenderness, meningismus, lymphadenopathy Respiratory exam: Present: respiratory distress, wheezes, accessory muscle use, decreased breath sounds, prolonged expiratory. Absent: rales, rhonchi, stridor Cardiovascular Exam: Present: normal rhythm, tachycardia, normal heart sounds. Absent: systolic murmur, diastolic murmur, rubs, gallop, clicks GI/Abdominal exam: Present: soft, normal bowel sounds. Absent: distended, tenderness, guarding, rebound, rigid Extremities exam: Present: normal inspection, full ROM, normal capillary refill. Absent: tenderness, pedal edema, joint swelling, calf tenderness Back exam: Present: normal inspection Neurological exam: Present: alert, oriented X3, CN II-XII intact Psychiatric exam: Present: normal affect, normal mood Skin exam: Present: warm, dry, intact, normal color. Absent: rash Course Vital Signs 07/04/21 07/04/21 07/04/21 21:00 21:56 23:07 Temperature 98.2 F Pulse Rate 120 H 109 H 89 Respiratory 18 18 Rate Blood Pressure 154/96 184/104 O2 Sat by Pulse 94 L 96 Oximetry - Reevaluation(s) Reevaluation #1: 07/04/21 21:39 Medical records reviewed Reevaluation #2: 07/04/21 23:15 patient recurrent chest pain EKG remains stable Reevaluation #3: 07/04/21 23:15 patient still sob Reevaluation #4: 07/04/21 23:15 patient informed of results and questions answered - Consultations Consultation #1: spoke with Dr Frederick rendon for admissiion EKG Findings - EKG Comments: EKG Findings:: EKG sinus tachycardia 116 OR 150 QRS 90 QTC 502 - EKG Results: EKG: WNL (Repeat sinus rhythm 97 OR 144 QRS 88 QTc 450) Medical Decision Making - Medical Decision Making C4 female DEL with chest pain shortness of breath COPD oxygen dropping into the mid 80s on room air. No home O2 patient be admitted for breathing treatments and continued management - Lab Data Result diagrams: 07/04/21 21:18 07/04/21 21:18 Lab Results 07/04/21 07/04/21 07/04/21 Range/Units 21:18 21:18 21:18 WBC 12.4 H (3.8-10.6) k/uL RBC 5.62 H (3.80-5.40) m/uL Hgb 16.4 H D (11.4-16.0) gm/dL Hct 51.6 H (34.0-46.0) % MCV 91.7 (80.0-100.0) fL MCH 29.2 (25.0-35.0) pg MCHC 31.8 (31.0-37.0) g/dL RDW 13.6 (11.5-15.5) % Plt Count 406 (150-450) k/uL MPV 7.2 Neutrophils % 70 % Lymphocytes % 18 % Monocytes % 7 % Eosinophils % 3 % Basophils % 1 % Neutrophils # 8.7 H (1.3-7.7) k/uL Lymphocytes # 2.2 (1.0-4.8) k/uL Monocytes # 0.8 (0-1.0) k/uL Eosinophils # 0.4 (0-0.7) k/uL Basophils # 0.1 (0-0.2) k/uL PT 11.5 (9.0-12.0) sec INR 1.1 (<1.2) APTT 24.1 (22.0-30.0) sec Sodium 133 L (137-145) mmol/L Potassium 3.3 L (3.5-5.1) mmol/L Chloride 98 (98-107) mmol/L Carbon Dioxide 24 (22-30) mmol/L Anion Gap 11 mmol/L BUN 37 H (7-17) mg/dL Creatinine 1.00 (0.52-1.04) mg/dL Est GFR (CKD-EPI)AfAm 69 (>60 ml/min/1.73 sqM) Est GFR (CKD-EPI)NonAf 60 (>60 ml/min/1.73 sqM) Glucose 142 H (74-99) mg/dL Plasma Lactic Acid Yogesh (0.7-2.0) mmol/L Calcium 9.7 (8.4-10.2) mg/dL Phosphorus 4.1 (2.5-4.5) mg/dL Magnesium 1.5 L (1.6-2.3) mg/dL Total Bilirubin 0.4 (0.2-1.3) mg/dL AST 20 (14-36) U/L ALT 15 (4-34) U/L Alkaline Phosphatase 127 H (38-126) U/L Troponin I (0.000-0.034) ng/mL Total Protein 7.5 (6.3-8.2) g/dL Albumin 4.3 (3.5-5.0) g/dL Lipase 82 (23-300) U/L Coronavirus (PCR) (Not Detectd) Influenza Type A RNA (Not Detectd) Influenza Type B (PCR) (Not Detectd) 07/04/21 07/04/21 07/04/21 Range/Units 21:18 21:18 21:18 WBC (3.8-10.6) k/uL RBC (3.80-5.40) m/uL Hgb (11.4-16.0) gm/dL Hct (34.0-46.0) % MCV (80.0-100.0) fL MCH (25.0-35.0) pg MCHC (31.0-37.0) g/dL RDW (11.5-15.5) % Plt Count (150-450) k/uL MPV Neutrophils % % Lymphocytes % % Monocytes % % Eosinophils % % Basophils % % Neutrophils # (1.3-7.7) k/uL Lymphocytes # (1.0-4.8) k/uL Monocytes # (0-1.0) k/uL Eosinophils # (0-0.7) k/uL Basophils # (0-0.2) k/uL PT (9.0-12.0) sec INR (<1.2) APTT (22.0-30.0) sec Sodium (137-145) mmol/L Potassium (3.5-5.1) mmol/L Chloride (98-107) mmol/L Carbon Dioxide (22-30) mmol/L Anion Gap mmol/L BUN (7-17) mg/dL Creatinine (0.52-1.04) mg/dL Est GFR (CKD-EPI)AfAm (>60 ml/min/1.73 sqM) Est GFR (CKD-EPI)NonAf (>60 ml/min/1.73 sqM) Glucose (74-99) mg/dL Plasma Lactic Acid Yogesh 2.2 H* (0.7-2.0) mmol/L Calcium (8.4-10.2) mg/dL Phosphorus (2.5-4.5) mg/dL Magnesium (1.6-2.3) mg/dL Total Bilirubin (0.2-1.3) mg/dL AST (14-36) U/L ALT (4-34) U/L Alkaline Phosphatase (38-126) U/L Troponin I <0.012 (0.000-0.034) ng/mL Total Protein (6.3-8.2) g/dL Albumin (3.5-5.0) g/dL Lipase (23-300) U/L Coronavirus (PCR) (Not Detectd) Influenza Type A RNA Not Detected (Not Detectd) Influenza Type B (PCR) Not Detected (Not Detectd) 07/04/21 Range/Units 21:36 WBC (3.8-10.6) k/uL RBC (3.80-5.40) m/uL Hgb (11.4-16.0) gm/dL Hct (34.0-46.0) % MCV (80.0-100.0) fL MCH (25.0-35.0) pg MCHC (31.0-37.0) g/dL RDW (11.5-15.5) % Plt Count (150-450) k/uL MPV Neutrophils % % Lymphocytes % % Monocytes % % Eosinophils % % Basophils % % Neutrophils # (1.3-7.7) k/uL Lymphocytes # (1.0-4.8) k/uL Monocytes # (0-1.0) k/uL Eosinophils # (0-0.7) k/uL Basophils # (0-0.2) k/uL PT (9.0-12.0) sec INR (<1.2) APTT (22.0-30.0) sec Sodium (137-145) mmol/L Potassium (3.5-5.1) mmol/L Chloride (98-107) mmol/L Carbon Dioxide (22-30) mmol/L Anion Gap mmol/L BUN (7-17) mg/dL Creatinine (0.52-1.04) mg/dL Est GFR (CKD-EPI)AfAm (>60 ml/min/1.73 sqM) Est GFR (CKD-EPI)NonAf (>60 ml/min/1.73 sqM) Glucose (74-99) mg/dL Plasma Lactic Acid Yogesh (0.7-2.0) mmol/L Calcium (8.4-10.2) mg/dL Phosphorus (2.5-4.5) mg/dL Magnesium (1.6-2.3) mg/dL Total Bilirubin (0.2-1.3) mg/dL AST (14-36) U/L ALT (4-34) U/L Alkaline Phosphatase (38-126) U/L Troponin I (0.000-0.034) ng/mL Total Protein (6.3-8.2) g/dL Albumin (3.5-5.0) g/dL Lipase (23-300) U/L Coronavirus (PCR) Not Detected (Not Detectd) Influenza Type A RNA (Not Detectd) Influenza Type B (PCR) (Not Detectd) - Radiology Data Radiology results: report reviewed (Chest x-rays negative for acute disease), image reviewed Critical Care Time Critical Care Time: Yes Total Critical Care Time: 31 Disposition Clinical Impression: Dizziness, COPD (chronic obstructive pulmonary disease), Acute exacerbation of COPD with asthma, Hypoxia, Chest pain Disposition: ADMITTED IP TO THIS [facility] Condition: Fair Is patient prescribed a controlled substance at d/c from ED?: No Referrals: Kut,Dwayne A, MD [Primary Care Provider] - 1-2 days
[2021-07-04] MEDS ORDERED: methylPREDNISolone SOD SUCCI 125 MG/2 ML VIAL IV STA (21:34)
[2021-07-04] MEDS ORDERED: IPRATROPIUM-ALBUTEROL 3 ML NEB INHALATION STA (21:34)
[2021-07-04 21:43] LABS: Basophils # (A) 0.1 k/uL (0-0.2); Basophils % (A) 1 %; Eosinophils # (A) 0.4 k/uL (0-0.7); Eosinophils % (A) 3 %; HCT 51.6 % (34.0-46.0); Lymphocytes # (A) 2.2 k/uL (1.0-4.8); Lymphocytes % (A) 18 %; MCH 29.2 pg (25.0-35.0); MCHC 31.8 g/dL (31.0-37.0); MCV 91.7 fL (80.0-100.0); Mean Platelet Volume 7.2; Monocytes # (A) 0.8 k/uL (0-1.0); Monocytes % (A) 7 %; Neutrophils # (A) 8.7 k/uL (1.3-7.7); Neutrophils % (A) 70 %; Platelet Count 406 k/uL (150-450); RBC 5.62 m/uL (3.80-5.40); RDW 13.6 % (11.5-15.5); WBC 12.4 k/uL (3.8-10.6)
[2021-07-04 21:59] LABS: INR 1.1 (<1.2); Partial Thromboplastin Time 24.1 sec (22.0-30.0); Prothrombin Time 11.5 sec (9.0-12.0)
[2021-07-04 22:10] LABS: Albumin 4.3 g/dL (3.5-5.0); Calcium 9.7 mg/dL (8.4-10.2); Magnesium 1.5 mg/dL (1.6-2.3); Phosphorus 4.1 mg/dL (2.5-4.5); Potassium 3.3 mmol/L (3.5-5.1); Total Bilirubin 0.4 mg/dL (0.2-1.3); Total Protein 7.5 g/dL (6.3-8.2)
[2021-07-04 22:15] LABS: HGB 16.4 gm/dL (11.4-16.0)
--- NOTE | 2021-07-04 22:17 | XR ---
EXAMINATION TYPE: XR chest 1V portable DATE OF EXAM: 07/04/2021 COMPARISON: 06/26/2021 HISTORY: Cough TECHNIQUE: FINDINGS: There is no heart failure nor confluent pneumonic infiltrate. Costophrenic angles are clear . There are chest leads. There are no hilar masses. IMPRESSION: No active cardiopulmonary disease. No change.
[2021-07-04] MEDS ORDERED: POTASSIUM CHLORIDE ER 20 MEQ TAB.ER PO STA ×2 (23:02)
[2021-07-04] MEDS ORDERED: MAGNESIUM OXIDE 400 MG TAB PO STA ×2 (23:03)
[2021-07-04] MEDS ORDERED: NALOXONE 0.4 MG/ML 1 ML VIAL IV PRN (23:12)
[2021-07-04] MEDS ORDERED: LORazepam 2 MG/ML INJ IV PRN (23:12)
[2021-07-04] MEDS ORDERED: ACETAMINOPHEN TAB 325 MG TAB PO PRN (23:12)
[2021-07-04] MEDS ORDERED: ONDANSETRON 4 MG/2 ML VIAL IVP PRN (23:12)
[2021-07-04] MEDS: MAGNESIUM SULFATE-D5W PMX 1 GM in DEXTROSE/WATER 1 100ML.BAG IVPB SCH (23:33)
[2021-07-05] MEDS: MAGNESIUM SULFATE-D5W PMX 1 GM in DEXTROSE/WATER 1 100ML.BAG IVPB SCH (00:31)
[2021-07-05] MEDS: MORPHINE SULFATE 4 MG/ML SYRINGE IV PRN ×2 (00:32→08:09)
[2021-07-05 02:11] LABS: Appearance,Urine Clear (Clear); Bilirubin,Urine Negative (Negative); Blood,Urine Small (Negative); Color,Urine Light Yellow; Glucose,Urine (UA) Negative (Negative); Ketones,Urine Negative (Negative); Leukocyte Esterase,Urine Negative (Negative); Nitrite,Urine Negative (Negative); PH, Urine 6.5 (5.0-8.0); Protein,Urine Trace (Negative); RBC,Urine 2 /hpf (0-5); Specific Gravity,Urine 1.012 (1.001-1.035); Squamous Epithelial Cell,Urine 2 /hpf (0-4); Urobilinogen,Urine <2.0 mg/dL (<2.0); WBC,Urine <1 /hpf (0-5)
[2021-07-05 05:10] LABS: Basophils # (A) 0.1 k/uL (0-0.2); Basophils % (A) 0 %; Eosinophils % (A) 0 %; HCT 53.1 % (34.0-46.0); Lymphocytes # (A) 1.2 k/uL (1.0-4.8); Lymphocytes % (A) 10 %; MCH 29.6 pg (25.0-35.0); MCV 92.6 fL (80.0-100.0); Mean Platelet Volume 7.4; Monocytes # (A) 0.2 k/uL (0-1.0); Monocytes % (A) 1 %; Neutrophils # (A) 10.9 k/uL (1.3-7.7); Neutrophils % (A) 88 %; Platelet Count 427 k/uL (150-450); RBC 5.73 m/uL (3.80-5.40); RDW 13.5 % (11.5-15.5); WBC 12.3 k/uL (3.8-10.6)
[2021-07-05 05:21] LABS: ALT 103 U/L (4-34); AST 149 U/L (14-36); African American GFR (CKD) >90 (>60 ml/min/1.73 sqM); Albumin 4.4 g/dL (3.5-5.0); Alkaline Phosphatase 126 U/L (38-126); Anion Gap 10 mmol/L; Blood Urea Nitrogen 30 mg/dL (7-17); Calcium 9.6 mg/dL (8.4-10.2); Carbon Dioxide 25 mmol/L (22-30); Chloride 99 mmol/L (98-107); Glucose 180 mg/dL (74-99); Magnesium 2.4 mg/dL (1.6-2.3); Non-African American GFR(CKD) 80 (>60 ml/min/1.73 sqM); Phosphorus 4.1 mg/dL (2.5-4.5); Potassium 4.3 mmol/L (3.5-5.1); Sodium 134 mmol/L (137-145); Total Bilirubin 0.4 mg/dL (0.2-1.3); Total Protein 7.6 g/dL (6.3-8.2)
[2021-07-05] MEDS ORDERED: NITROGLYCERIN SL TABS 0.4 MG TAB SUBLINGUAL PRN (08:18)
[2021-07-05] MEDS ORDERED: diphenhydrAMINE 25 MG CAP PO PRN (08:18)
[2021-07-05] MEDS ORDERED: traMADol 50 MG TAB PO PRN (08:18)
[2021-07-05] MEDS ORDERED: ALBUTEROL HFA INHALER INHALATION PRN (08:18)
[2021-07-05] MEDS ORDERED: ALBUTEROL NEBULIZED 2.5 MG/3 ML INHALATION PRN (08:18)
[2021-07-05] MEDS ORDERED: ALPRAZolam 0.25 MG TAB PO PRN (08:18)
[2021-07-05] MEDS ORDERED: ACETAMINOPHEN TAB 325 MG TAB PO PRN (08:18)
[2021-07-05] MEDS: MELOXICAM 7.5 MG TAB PO SCH (09:33)
[2021-07-05] MEDS: DOXYCYCLINE 100 MG CAP PO SCH ×2 (09:34→19:44)
[2021-07-05] MEDS: TRIAMTERENE-HCTZ 37.5-25MG 1 EACH TAB PO SCH (09:34)
[2021-07-05] MEDS: DULoxetine HCL 30 MG CAPSULE.DR PO SCH (09:34)
[2021-07-05] MEDS: ASPIRIN 81 MG PO SCH (09:34)
[2021-07-05] MEDS: PREGABALIN 50 MG CAP PO SCH ×2 (09:35→21:24)
[2021-07-05] MEDS: POTASSIUM CHLORIDE ER 20 MEQ TAB.ER PO SCH (09:35)
--- NOTE | 2021-07-05 11:38 | P.HPIM ---
History of Present Illness H&P Date: 07/05/21 HISTORY OF PRESENT ILLNESS This is a 66-year-old female patient of Dr. Holloway with past medical history of COPD, gastroesophageal reflux disease, hyperlipidemia, hypertension, MRSA, tobacco use and dependence, chronic back pain. Patient was recently hospitalized June 26- and at that time was treated for toxic metabolic encephalopathy thought to be related to medication. Patient states that she went home and was feeling great for at least 2 days and then she started having chest pain in the midsternal over chest and then radiated to her back. She also had shortness of breath with this. Patient denies any history of obstructive sleep apnea and has not had a sleep study. Patient presented to [facility] emergency center. Patient was found to be afebrile, initial heart rate 120, blood pressure 154/96 and pulse ox 94%. EKG sinus tachycardia at 116 bpm. WBC 12.4, hemoglobin 16.4, platelet count 406. INR 1.1. Sodium 133, potassium 3.3, chloride 98, CO2 24, BUN 37 and creatinine 1. Lactic acid initially 2.2 and repeat 1.8. Magnesium 1.5 and repeat 2.4. Liver function tests revealed total bilirubin 0.4, AST 20, ALT 15, alkaline phosphatase 127. Troponin negative on 3 draws. Lipase 82. Urinalysis was negative for infection. Coronal virus PCR not detected. Influenza A not detected. Influenza B detected. Chest x-ray revealed no active cardio pulmonary disease. No change.. Patient has been admitted to the cardiac stepdown unit, consults with pulmonary medicine and cardiology.. REVIEW OF SYSTEMS Constitutional: No fever, no chills, no night sweats. No weight change. No weakness, fatigue or lethargy. No daytime sleepiness. EENT: No headache. No blurred vision or double vision, no loss of vision. No loss of Hearing, no ringing in the ears, no dizziness. No nasal drainage or congestion. No epistaxis. No sore throat. Lungs: Reports shortness of breath, cough, no sputum production. No wheezing. Cardiovascular: Reports chest pain, no lower extremity edema. No palpitations. No paroxysmal nocturnal dyspnea. No orthopnea. No lightheadedness or dizziness. No syncopal episodes. Abdominal: No abdominal pain. No nausea, vomiting. No diarrhea. No constipation. No bloody or tarry stools. No loss of appetite. Genitourinary: No dysuria, increased frequency, urgency. No urinary retention. Musculoskeletal: No myalgias. No muscle weakness, no gait dysfunction, no frequent falls. No back pain. No neck pain. Integumentary: No wounds, no lesions. No rash or pruritus. No unusual bruis ing. No change in hair or nails. Neurologic: No aphasia. No facial droop. No change in mentation. No head injury. No headache. No paralysis. No paresthesia. Psychiatric: No depression. No anxiety. No mood swings. Endocrine: No abnormal blood sugars. No weight change. No excessive sweating or thirst. No cold intolerance. SOCIAL HISTORY Patient is a smoker one pack per day since she was 16 years of age. 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 FAMILY HISTORY Mother at age 73 with history of lung cancer and diabetes, COPD. Father is alive at age 78 with history of diabetes and bilateral lower extremity amputat ions, coronary artery disease, heart failure and atrial fibrillation. Patient has 2 brothers and 2 sisters and she does not have contact with them for more than 6 years. Patient has 3 children. One at age 34 from heart problems or pneumonia. 1 has seizure disorder and blood cancer, one is healthy. PHYSICAL EXAMINATION Gen: This is a 66-year-old female. She is resting in bed and does not appear to be in any acute distress. HEENT: Head is atraumatic, normocephalic. Pupils equal, round. Sclerae is anicteric. NECK: Supple. No JVD. No lymphadenopathy. No thyromegaly. LUNGS: Clear to auscultation. No wheezes or rhonchi. No intercostal retractions. HEART: Regular rate and rhythm. No murmur. ABDOMEN: Soft. Bowel sounds are present. No masses. No tenderness. EXTREMITIES: Trace pedal edema. No calf tenderness. Mild erythema bilateral lower extremities with chronic stasis dermatitis. NEUROLOGICAL: Patient is awake, alert and oriented x3. Cranial nerves 2 through 12 are grossly intact. ASSESSMENT AND PLAN 1. Chest pain and shortness of breath. Consult with cardiology, CTA ordered by pulmonary. Patient received 1 dose of IV Solu-Medrol in the emergency center, DuoNeb treatment. Continue albuterol nebulizer treatment 4 times daily as needed. 2. Recent hospitalization for Toxic metabolic encephalopathy, stable. 3. Bilateral lower extremity cellulitis with chronic stasis dermatitis. Patient continued on doxycycline. 4. COPD, stable without exacerbation. Continue albuterol nebulizer treatments 4 times daily as needed. 5. Gastroesophageal reflux disease. Continue Protonix 40 mg at bedtime, Reba fate 1 g at bedtime. 6. Hyperlipidemia. 7. Hypertension. Continue Maxzide 1 daily. 8. Chronic back pain. Continue tramadol 50 mg 3 times daily as needed, Lyrica 50 mg twice daily, l multiple back 15 mg daily. 9. Seasonal ALLERGIES. 10. DVT prophylaxis. Heparin subcu. 11. COVID-19 testing negative. Patient will be admitted to the hospital for a minimum of 2 night stay. DISCHARGE PLAN Home Impression and plan of care have been directed as dictated by the signing physician. Kelly Guerrier nurse practitioner acting as scribe for signing physician. Past Medical History Past Medical History: COPD, GERD/Reflux, Hyperlipidemia, Hypertension History of Any Multi-Drug Resistant Organisms: MRSA Date of last positivie culture/infection: 2008 MDRO Source:: Axilla, Cheek Past Surgical History: Back Surgery, Cholecystectomy, Heart Catheterization, Hernia Repair, Hysterectomy, Orthopedic Surgery Additional Past Surgical History / Comment(s): bilateral knee scope, left carpal tunnel, left elbow surgery, lumbar back surgery, hysterectomy due to dysfunctional uterine bleeding, colonoscopy in the past. Past Anesthesia/Blood Transfusion Reactions: No Reported Reaction Smoking Status: Current every day smoker Past Alcohol Use History: None Reported Additional Past Alcohol Use History / Comment(s): Patient is a smoker one pack per day since she was 16 years of age. 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 Past Drug Use History: None Reported - Past Family History Mother Family Medical History: Cancer, COPD, Diabetes Mellitus Additional Family Medical History / Comment(s): Mother at age 73 with history of lung cancer and diabetes. Father Family Medical History: COPD, Diabetes Mellitus Additional Family Medical History / Comment(s): Father is alive at age 83 with history of diabetes mellitus with bilateral lower extremity amputations, coronary artery disease, heart failure, atrial fibrillation. Brother(s) Additional Family Medical History / Comment(s): Patient has 2 brothers and 2 sisters and she does not have any contact with them for more than 6 years. Daughter(s) Additional Family Medical History / Comment(s): Patient has 3 children. One at age 34 from heart problems or pneumonia. 1 has seizure disorder and blood cancer, one is healthy. Medications and Allergies Home Medications Medication Instructions Recorded Confirmed Type Aspirin [Adult Low Dose Aspirin EC] 81 mg PO DAILY 07/01/16 07/04/21 History Sucralfate [Carafate] 1 gm PO HS 07/01/16 07/04/21 History ALPRAZolam [Xanax] 0.25 mg PO BID PRN 06/26/21 07/04/21 History Albuterol Nebulized [Ventolin 2.5 mg INHALATION RT-QID PRN 06/26/21 07/04/21 History Nebulized] Albuterol Sulfate [Proair 1 puff INHALATION RT-QID PRN 06/26/21 07/04/21 History Respiclick] DULoxetine HCL [Cymbalta] 30 mg PO DAILY 06/26/21 07/04/21 History DULoxetine HCL [Cymbalta] 60 mg PO HS 06/26/21 07/04/21 History Furosemide [Lasix] 40 mg PO BID@0800,1400 06/26/21 07/04/21 History Meloxicam [Mobic] 15 mg PO DAILY 06/26/21 07/04/21 History Nitroglycerin Sl Tabs [Nitrostat] 0.4 mg SL Q5M PRN 06/26/21 07/04/21 History Omeprazole 20 mg PO HS 06/26/21 07/04/21 History Potassium Chloride ER [K-Dur 20] 20 meq PO DAILY 06/26/21 07/04/21 History Pregabalin 50 mg PO BID 06/26/21 07/04/21 History SILVER sulfADIAZINE Cream 1 applic TOPICAL DAILY 06/26/21 07/04/21 History [Silvadene 1% Cream] Triamterene-Hctz 37.5-25Mg 1 tab PO DAILY 06/26/21 07/04/21 History [Maxzide 37.5-25] diphenhydrAMINE HCL [Benadryl] 25 mg PO HS PRN 06/26/21 07/04/21 History Acetaminophen Tab [Tylenol] 650 mg PO Q6HR PRN tab 06/28/21 07/04/21 Rx Doxycycline Hyclate 100 mg PO Q12H 1 Days #20 tab 06/28/21 07/04/21 Rx traMADol HCl [Ultram] 50 mg PO TID PRN tab 06/28/21 07/04/21 Rx Allergies Allergy/AdvReac Type Severity Reaction Status Date / Time sulfamethoxazole Allergy Rash/Hives Verified 07/04/21 22:22 [From ] trimethoprim [From ] Allergy Rash/Hives Verified 07/04/21 22:22 Physical Exam Vitals: Vital Signs Temp Pulse Pulse Resp BP BP Pulse Ox 07/05/21 03:17 97.7 F 99 16 165/90 95 07/05/21 01:24 18 07/04/21 23:57 94 18 96 07/04/21 23:43 99 14 148/90 96 07/04/21 23:07 89 18 184/104 96 07/04/21 22:15 106 H 07/04/21 21:56 109 H 07/04/21 21:00 98.2 F 120 H 18 154/96 94 L Intake and Output 07/04/21 07/05/21 07/05/21 22:59 06:59 14:59 Intake Total 240 Balance 240 Intake: Oral 240 Other: Voiding Method Toilet Diaper # Voids 2 Weight 90.718 kg 90.718 kg Results CBC & Chem 7: 07/05/21 04:28 07/05/21 04:28 Labs: Abnormal Lab Results - Last 24 Hours (Table) 07/04/21 07/04/21 07/04/21 Range/Units 21:18 21:18 21:18 WBC 12.4 H (3.8-10.6) k/uL RBC 5.62 H (3.80-5.40) m/uL Hgb 16.4 H D (11.4-16.0) gm/dL Hct 51.6 H (34.0-46.0) % Neutrophils # 8.7 H (1.3-7.7) k/uL Sodium 133 L (137-145) mmol/L Potassium 3.3 L (3.5-5.1) mmol/L BUN 37 H (7-17) mg/dL Glucose 142 H (74-99) mg/dL Plasma Lactic Acid Yogesh 2.2 H* (0.7-2.0) mmol/L Magnesium 1.5 L (1.6-2.3) mg/dL AST (14-36) U/L ALT (4-34) U/L Alkaline Phosphatase 127 H (38-126) U/L Urine Protein (Negative) Urine Blood (Negative) 07/05/21 07/05/21 07/05/21 Range/Units 01:42 04:28 04:28 WBC 12.3 H (3.8-10.6) k/uL RBC 5.73 H (3.80-5.40) m/uL Hgb 17.0 H (11.4-16.0) gm/dL Hct 53.1 H (34.0-46.0) % Neutrophils # 10.9 H (1.3-7.7) k/uL Sodium 134 L (137-145) mmol/L Potassium (3.5-5.1) mmol/L BUN 30 H (7-17) mg/dL Glucose 180 H (74-99) mg/dL Plasma Lactic Acid Yogesh (0.7-2.0) mmol/L Magnesium 2.4 H (1.6-2.3) mg/dL AST 149 H (14-36) U/L ALT 103 H (4-34) U/L Alkaline Phosphatase (38-126) U/L Urine Protein Trace H (Negative) Urine Blood Small H (Negative) Thrombosis Risk Factor Assmnt - Choose All That Apply Each Factor Represents 1 point: Obesity (BMI >25) Each Risk Factor Represents 2 Points: Age 61-74 years Thrombosis Risk Factor Assessment Total Risk Factor Score: 3 Thrombosis Risk Factor Assessment Level: Moderate Risk
[2021-07-05 12:24] LABS: Glucose,Whole Blood 137 mg/dL (75-99)
[2021-07-05] MEDS: FUROSEMIDE 40 MG TAB PO SCH (14:10)
[2021-07-05] MEDS: predniSONE 10 MG TAB PO SCH (14:10)
--- NOTE | 2021-07-05 14:16 | CT ---
EXAMINATION TYPE: CT chest angio for PE DATE OF EXAM: 07/05/2021 COMPARISON: Chest x-ray from yesterday HISTORY: COPD with shortness of breath Automated Exposure Control for Dose Reduction was Utilized. CONTRAST: CTA scan of the thorax is performed with IV Contrast, patient injected with 100 mL of Isovue 370, pul monary embolism protocol. MIP Images are created on CT scanner and reviewed. FINDINGS: LUNGS: There is respiratory motion artifact degradation making evaluation suboptimal particularly for subcentimeter nodules. Posterior mild bibasilar linear scarring and/or atelectasis is seen. No suspi cious focal consolidation or groundglass opacity. No pleural effusion or pneumothorax seen bilaterall y. MEDIASTINUM: This is suboptimal study with most dense contrast in the SVC and adjacent aorta versus t he pulmonary arteries. No thoracic aortic aneurysm or dissection is seen. No central pulmonary embol ism. Suboptimal evaluation of segmental subsegmental branches on this study due to poor opacification heterogeneity in the periphery. There are no greater than 1 cm hilar or mediastinal lymph nodes. N o cardiomegaly or pericardial effusion is seen. Coronary artery calcification is present. OTHER: Multiple cholecystectomy clips are noted. Subcentimeter central hyperdense splenic lesion axia l image 126 could reflect small hemangioma. [id number] multilevel spurring in the thoracic spin e. IMPRESSION: Suboptimal study as patient unable to hold breath without central pulmonary embolism. Can not entirely exclude smaller peripheral segmental and subsegmental PE on this exam. Mild bibasilar li near scarring and/or atelectasis. No suspicious focal acute infiltrate.
--- NOTE | 2021-07-05 14:54 | P.CNPUL ---
History of Present Illness Consult date: 07/05/21 Requesting physician: Kelly Guerrier Reason for consult: dyspnea Chief complaint: Shortness of breath History of present illness: This is a 66-year-old female patient with history of COPD not oxygen dependent at baseline, current every day smoker, hypertension, hyperlipidemia, GERD/reflux, previous history of MRSA infection, presented to the emergency department on 07/04/2021 with complaints of increased shortness of breath, and chest discomfort. She was recently hospitalized from June 26 through June 28, 2021 for weakness, cellulitis, and toxic metabolic encephalopathy related to medications. She was discharged home in stable and improving condition. During this presentation she was describing midsternal chest pain that was radiating to her back. This was associated with shortness of breath. She denied any fever or chills. Does have a cough. She tested negative for COVID-19, influenza A and B. Chest x-ray showed no active cardiopulmonary disease. EKG showed sinus tachycardia, nonspecific ST and T-wave abnormality. Labs show white blood cell count is 12.4, hemoglobin is 16.4, coagulation profile was unremarkable, sodium is 133, potassium 3.3, chloride is 98, CO2 is 24, anion gap is 11, B1 is 37, creatinine is 1.0, plasma lactic acid is 2.2, magnesium is 1.5, AST is 20, ALT is 15, alkaline phosphatase 127, troponin is less than 0.[address] is [address] chest was completed showing suboptimal study as the patient was unable to hold his breath without central pulmonary embolism, small peripheral segmental and subsegmental PE could not be entirely excluded, there was mild bibasilar liter scarring and/or atelectasis, there was no suspicious focal acute infiltra te. Patient was started on nebulized bronchodilators, she is on doxycycline for empiric antibiotic coverage, she is diagnosed with acute exacerbation of COPD, however her symptoms are mild, we'll start her on oral steroids in the form of prednisone. Review of Systems All systems: negative Constitutional: Denies chills, Denies fever Eyes: denies blurred vision, denies pain Ears, nose, mouth and throat: Denies headache, Denies sore throat Cardiovascular: Denies chest pain, Denies shortness of breath Respiratory: Reports dyspnea, Denies cough Gastrointestinal: Denies abdominal pain, Denies diarrhea, Denies nausea, Denies vomiting Genitourinary: Denies dysuria, Denies hematuria Musculoskeletal: Denies myalgias Integumentary: Denies pruritus, Denies rash Neurological: Denies numbness, Denies weakness Psychiatric: Denies anxiety, Denies depression Endocrine: Denies fatigue, Denies weight change Past Medical History Past Medical History: COPD, GERD/Reflux, Hyperlipidemia, Hypertension History of Any Multi-Drug Resistant Organisms: MRSA Date of last positivie culture/infection: 2008 MDRO Source:: Axilla, Cheek Past Surgical History: Back Surgery, Cholecystectomy, Heart Catheterization, Hernia Repair, Hysterectomy, Orthopedic Surgery Additional Past Surgical History / Comment(s): bilateral knee scope, left carpal tunnel, left elbow surgery, lumbar back surgery, hysterectomy due to dysfunctional uterine bleeding, colonoscopy in the past. Past Anesthesia/Blood Transfusion Reactions: No Reported Reaction Smoking Status: Current every day smoker Past Alcohol Use History: None Reported Additional Past Alcohol Use History / Comment(s): Patient is a smoker one pack per day since she was 16 years of age. 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 Past Drug Use History: None Reported - Past Family History Mother Family Medical History: Cancer, COPD, Diabetes Mellitus Additional Family Medical History / Comment(s): Mother at age 73 with history of lung cancer and diabetes. Father Family Medical History: COPD, Diabetes Mellitus Additional Family Medical History / Comment(s): Father is alive at age 83 with history of diabetes mellitus with bilateral lower extremity amputations, coronary artery disease, heart failure, atrial fibrillation. Brother(s) Additional Family Medical History / Comment(s): Patient has 2 brothers and 2 sisters and she does not have any contact with them for more than 6 years. Daughter(s) Additional Family Medical History / Comment(s): Patient has 3 children. One at age 34 from heart problems or pneumonia. 1 has seizure disorder and blood cancer, one is healthy. Medications and Allergies Home Medications Medication Instructions Recorded Confirmed Type Aspirin [Adult Low Dose Aspirin EC] 81 mg PO DAILY 07/01/16 07/04/21 History Sucralfate [Carafate] 1 gm PO HS 07/01/16 07/04/21 History ALPRAZolam [Xanax] 0.25 mg PO BID PRN 06/26/21 07/04/21 History Albuterol Nebulized [Ventolin 2.5 mg INHALATION RT-QID PRN 06/26/21 07/04/21 History Nebulized] Albuterol Sulfate [Proair 1 puff INHALATION RT-QID PRN 06/26/21 07/04/21 History Respiclick] DULoxetine HCL [Cymbalta] 30 mg PO DAILY 06/26/21 07/04/21 History DULoxetine HCL [Cymbalta] 60 mg PO HS 06/26/21 07/04/21 History Furosemide [Lasix] 40 mg PO BID@0800,1400 06/26/21 07/04/21 History Meloxicam [Mobic] 15 mg PO DAILY 06/26/21 07/04/21 History Nitroglycerin Sl Tabs [Nitrostat] 0.4 mg SL Q5M PRN 06/26/21 07/04/21 History Omeprazole 20 mg PO HS 06/26/21 07/04/21 History Potassium Chloride ER [K-Dur 20] 20 meq PO DAILY 06/26/21 07/04/21 History Pregabalin 50 mg PO BID 06/26/21 07/04/21 History SILVER sulfADIAZINE Cream 1 applic TOPICAL DAILY 06/26/21 07/04/21 History [Silvadene 1% Cream] Triamterene-Hctz 37.5-25Mg 1 tab PO DAILY 06/26/21 07/04/21 History [Maxzide 37.5-25] diphenhydrAMINE HCL [Benadryl] 25 mg PO HS PRN 06/26/21 07/04/21 History Acetaminophen Tab [Tylenol] 650 mg PO Q6HR PRN tab 06/28/21 07/04/21 Rx Doxycycline Hyclate 100 mg PO Q12H 1 Days #20 tab 06/28/21 07/04/21 Rx traMADol HCl [Ultram] 50 mg PO TID PRN tab 06/28/21 07/04/21 Rx Allergies Allergy/AdvReac Type Severity Reaction Status Date / Time sulfamethoxazole Allergy Rash/Hives Verified 07/04/21 22:22 [From ] trimethoprim [From ] Allergy Rash/Hives Verified 07/04/21 22:22 Physical Exam Vitals: Vital Signs Temp Pulse Pulse Resp BP BP Pulse Ox 07/05/21 13:00 98.2 F 115 H 16 149/90 94 L 07/05/21 08:00 99 F 106 H 18 170/91 92 L 07/05/21 03:17 97.7 F 99 16 165/90 95 07/05/21 01:24 18 07/04/21 23:57 94 18 96 07/04/21 23:43 99 14 148/90 96 07/04/21 23:07 89 18 184/104 96 07/04/21 22:15 106 H 07/04/21 21:56 109 H 07/04/21 21:00 98.2 F 120 H 18 154/96 94 L Intake and Output 07/04/21 07/05/21 07/05/21 22:59 06:59 14:59 Intake Total 240 Balance 240 Intake: Oral 240 Other: Voiding Method Toilet Diaper # Voids 2 Weight 90.718 kg 90.718 kg GENERAL EXAM: Alert, active, comfortable in no apparent distress. HEAD: Normocephalic/atraumatic. EYES: Normal reaction of pupils, equal size. Conjunctiva pink, sclera white. NOSE: Clear with pink turbinates. THROAT: No erythema or exudates. NECK: No masses, no JVD, no thyroid enlargement, no adenopathy. CHEST: No chest wall deformity. Symmetrical expansion. LUNGS: Equal air entry with no crackles, wheeze, rhonchi or dullness. CVS: Regular rate and rhythm, normal S1 and S2, no gallops, no murmurs, no rubs ABDOMEN: Soft, nontender. No hepatosplenomegaly, normal bowel sounds, no guarding or rigidity. EXTREMITIES: No clubbing, no edema, no cyanosis, 2+ pulses and upper and lower extremities. MUSCULOSKELETAL: Muscle strength and tone normal. SPINE: No scoliosis or deformity SKIN: No rashes CENTRAL NERVOUS SYSTEM: Alert and oriented -3. No focal deficits, tone is normal in all 4 extremities. PSYCHIATRIC: Alert and oriented -3. Appropriate affect. Intact judgment and insight. Results - Laboratory Findings CBC and BMP: 07/05/21 04:28 07/05/21 04:28 PT/INR, D-dimer PT 11.5 sec (9.0-12.0) 07/04/21 21:18 INR 1.1 (<1.2) 07/04/21 21:18 Abnormal lab findings: Abnormal Labs 07/04/21 07/04/21 07/04/21 21:18 21:18 21:18 WBC 12.4 H RBC 5.62 H Hgb 16.4 H D Hct 51.6 H Neutrophils # 8.7 H Sodium 133 L Potassium 3.3 L BUN 37 H Glucose 142 H POC Glucose (mg/dL) Plasma Lactic Acid Yogesh 2.2 H* Magnesium 1.5 L AST ALT Alkaline Phosphatase 127 H Urine Protein Urine Blood 07/05/21 07/05/21 07/05/21 01:42 04:28 04:28 WBC 12.3 H RBC 5.73 H Hgb 17.0 H Hct 53.1 H Neutrophils # 10.9 H Sodium 134 L Potassium BUN 30 H Glucose 180 H POC Glucose (mg/dL) Plasma Lactic Acid Yogesh Magnesium 2.4 H AST 149 H ALT 103 H Alkaline Phosphatase Urine Protein Trace H Urine Blood Small H 07/05/21 12:13 WBC RBC Hgb Hct Neutrophils # Sodium Potassium BUN Glucose POC Glucose (mg/dL) 137 H Plasma Lactic Acid Yogesh Magnesium AST ALT Alkaline Phosphatase Urine Protein Urine Blood - Diagnostic Findings Chest x-ray: report reviewed, image reviewed CT scan - chest: report reviewed, image reviewed Assessment and Plan Plan: Assessment: #1. Acute exacerbation of chronic obstructive pulmonary disease, COVID-19 PCR, influenza A and B were negative, chest x-ray showing no active cardiopulmonary disease. #2. Recent hospitalization for weakness, cellulitis, altered mental status related to was thought to be toxic metabolic encephalopathy related to medications #3. History of COPD, not oxygen dependent at baseline #4. Hypertension #5. Hyperlipidemia #6. Tobacco use dependence #7. Chronic back pain #8. Previous history of MRSA infection in the axilla #9. GERD/reflux Plan: Patient COPD exacerbation is mild We'll add oral prednisone 30 mg daily Continue nebulized bronchodilators, continue empiric antibiotics Increase activity as tolerated Anticipate discharge home in the next 24 hours if cleared by medicine I have personally seen and examined the patient, performed the documentation and the assessment and plan as written. Number of minutes spent on the visit 15 min Time with Patient: Greater than 30
[2021-07-05 16:28] LABS: Glucose,Whole Blood 128 mg/dL (75-99)
[2021-07-05] MEDS ORDERED: DULoxetine HCL 60 MG CAPSULE.DR PO SCH (21:00)
[2021-07-05] MEDS ORDERED: PANTOPRAZOLE 40 MG TABLET PO SCH (21:00)
[2021-07-05] MEDS ORDERED: SUCRALFATE 1 GM TAB PO SCH (21:00)
[2021-07-05 21:11] LABS: Glucose,Whole Blood 184 mg/dL (75-99)
[2021-07-05] MEDS: HEPARIN SODIUM,PORCINE/PF 5,000 UNIT/0.5 ML SYRINGE SQ SCH (21:24)
[2021-07-06 04:18] VITALS: TEMP 98
[2021-07-06 06:49] LABS: Glucose,Whole Blood 127 mg/dL (75-99)
[2021-07-06] MEDS: MORPHINE SULFATE 4 MG/ML SYRINGE IV PRN (06:56)
[2021-07-06 08:08] VITALS: BP 154/83; PULSE 114; RESP 18
[2021-07-06] MEDS: HEPARIN SODIUM,PORCINE/PF 5,000 UNIT/0.5 ML SYRINGE SQ SCH (08:10)
[2021-07-06] MEDS: POTASSIUM CHLORIDE ER 20 MEQ TAB.ER PO SCH (08:11)
[2021-07-06] MEDS: predniSONE 10 MG TAB PO SCH (08:11)
[2021-07-06] MEDS: DOXYCYCLINE 100 MG CAP PO SCH ×2 (08:11→11:09)
[2021-07-06] MEDS: MELOXICAM 7.5 MG TAB PO SCH (08:11)
[2021-07-06] MEDS: PREGABALIN 50 MG CAP PO SCH (08:11)
[2021-07-06] MEDS: FUROSEMIDE 40 MG TAB PO SCH ×2 (08:12→11:09)
[2021-07-06] MEDS: DULoxetine HCL 30 MG CAPSULE.DR PO SCH (08:12)
[2021-07-06] MEDS: ASPIRIN 81 MG PO SCH (08:12)
[2021-07-06] MEDS: TRIAMTERENE-HCTZ 37.5-25MG 1 EACH TAB PO SCH (08:12)
--- NOTE | 2021-07-06 09:25 | P.DS ---
Providers Date of admission: 07/04/21 23:12 Expected date of discharge: 07/06/21 Attending physician: Wali Mack Consults: 07/05/21 09:06 Consult Physician Routine Consulting Provider: Gideon Lares Consult Reason/Comments: chest pain Do you want consulting provider notified?: Yes 07/05/21 09:07 Consult Physician Routine Consulting Provider: Nadege Abbott Consult Reason/Comments: copd Do you want consulting provider notified?: Yes Primary care physician: Dwyane Contreras [facility] Course: 66 years old female with past medical history significant for COPD presents to the emergency department with chest tightness and shortness of breath. Initial workup in the emergency department revealed normal/baseline finding patient received IV Jaylene troll evaluated by pulmonary who recommended switching patient to oral steroids and follow-up outpatient. On evaluation today patient is alert and oriented 4 in no acute distress currently on room air in no acute distress tolerating diet and tolerating in the room and asking if she can be discharged. Patient felt stable from the medical standpoint to be discharged and follow-up with her primary care physician in 3 days and pulmonary on scheduled appointment Patient Condition at Discharge: Fair Plan - Discharge Summary Discharge Rx Participant: No New Discharge Prescriptions: No Action Sucralfate [Carafate] 1 gm PO HS Aspirin [Adult Low Dose Aspirin EC] 81 mg PO DAILY Triamterene-Hctz 37.5-25Mg [Maxzide 37.5-25] 1 tab PO DAILY Pregabalin 50 mg PO BID DULoxetine HCL [Cymbalta] 60 mg PO HS ALPRAZolam [Xanax] 0.25 mg PO BID PRN PRN Reason: Anxiety Albuterol Nebulized [Ventolin Nebulized] 2.5 mg INHALATION RT-QID PRN PRN Reason: Shortness Of Breath Acetaminophen Tab [Tylenol] 650 mg PO Q6HR PRN tab PRN Reason: Mild Pain Or Fever > 100.5 traMADol HCl [Ultram] 50 mg PO TID PRN tab PRN Reason: Analgesia SILVER sulfADIAZINE Cream [Silvadene 1% Cream] 1 applic TOPICAL DAILY Nitroglycerin Sl Tabs [Nitrostat] 0.4 mg SL Q5M PRN PRN Reason: Chest Pain Meloxicam [Mobic] 15 mg PO DAILY diphenhydrAMINE HCL [Benadryl] 25 mg PO HS PRN PRN Reason: Insomnia Furosemide [Lasix] 40 mg PO BID@0800,1400 Potassium Chloride ER [K-Dur 20] 20 meq PO DAILY Omeprazole 20 mg PO HS Albuterol Sulfate [Proair Respiclick] 1 puff INHALATION RT-QID PRN PRN Reason: Shortness Of Breath DULoxetine HCL [Cymbalta] 30 mg PO DAILY Doxycycline Hyclate 100 mg PO Q12H 1 Days #20 tab Discharge Medication List Aspirin [Adult Low Dose Aspirin EC] 81 mg PO DAILY 07/01/16 [History] Sucralfate [Carafate] 1 gm PO HS 07/01/16 [History] ALPRAZolam [Xanax] 0.25 mg PO BID PRN 06/26/21 [History] Albuterol Nebulized [Ventolin Nebulized] 2.5 mg INHALATION RT-QID PRN 06/26/21 [History] Albuterol Sulfate [Proair Respiclick] 1 puff INHALATION RT-QID PRN 06/26/21 [History] DULoxetine HCL [Cymbalta] 30 mg PO DAILY 06/26/21 [History] DULoxetine HCL [Cymbalta] 60 mg PO HS 06/26/21 [History] Furosemide [Lasix] 40 mg PO BID@0800,1400 06/26/21 [History] Meloxicam [Mobic] 15 mg PO DAILY 06/26/21 [History] Nitroglycerin Sl Tabs [Nitrostat] 0.4 mg SL Q5M PRN 06/26/21 [History] Omeprazole 20 mg PO HS 06/26/21 [History] Potassium Chloride ER [K-Dur 20] 20 meq PO DAILY 06/26/21 [History] Pregabalin 50 mg PO BID 06/26/21 [History] SILVER sulfADIAZINE Cream [Silvadene 1% Cream] 1 applic TOPICAL DAILY 06/26/21 [History] Triamterene-Hctz 37.5-25Mg [Maxzide 37.5-25] 1 tab PO DAILY 06/26/21 [History] diphenhydrAMINE HCL [Benadryl] 25 mg PO HS PRN 06/26/21 [History] Acetaminophen Tab [Tylenol] 650 mg PO Q6HR PRN tab 06/28/21 [Rx] Doxycycline Hyclate 100 mg PO Q12H 1 Days #20 tab 06/28/21 [Rx] traMADol HCl [Ultram] 50 mg PO TID PRN tab 06/28/21 [Rx] Follow up Appointment(s)/Referral(s): Dwayne Holloway MD [Primary Care Provider] - 1-2 days
--- NOTE | 2021-07-06 11:41 | P.PN ---
Subjective Progress Note Date: 07/06/21 This is a 66-year-old female patient with history of COPD not oxygen dependent at baseline, current every day smoker, hypertension, hyperlipidemia, GERD/reflux, previous history of MRSA infection, presented to the emergency department on 07/04/2021 with complaints of increased shortness of breath, and chest discomfort. She was recently hospitalized from June 26 through June 28, 2021 for weakness, cellulitis, and toxic metabolic encephalopathy related to medications. She was discharged home in stable and improving condition. During this presentation she was describing midsternal chest pain that was radiating to her back. This was associated with shortness of breath. She denied any fever or chills. Does have a cough. She tested negative for COVID-19, influenza A and B. Chest x-ray showed no active cardiopulmonary disease. EKG showed sinus tachycardia, nonspecific ST and T-wave abnormality. Labs show white blood cell count is 12.4, hemoglobin is 16.4, coagulation profile was unremarkable, sodium is 133, potassium 3.3, chloride is 98, CO2 is 24, anion gap is 11, B1 is 37, creatinine is 1.0, plasma lactic acid is 2.2, magnesium is 1.5, AST is 20, ALT is 15, alkaline phosphatase 127, troponin is less than 0.[address] is [address] chest was completed showing suboptimal study as the patient was unable to hold his breath without central pulmonary embolism, small peripheral segmental and subsegmental PE could not be entirely excluded, there was mild bibasilar liter scarring and/or atelectasis, there was no suspicious focal acute infiltrate. Patient was started on nebulized bronchodilators, she is on doxycycline for empiric antibiotic coverage, she is diagnosed with acute ex acerbation of COPD, however her symptoms are mild, we'll start her on oral steroids in the form of prednisone. The patient is seen today 07/06/2021 in follow-up on the regular medical floor. She is currently sitting up in bed. Awake and alert in no acute distress. Maintaining O2 saturations in the 90s on room air. Feeling nearly back to her baseline. Blood glucose 127. She is continued on bronchodilators and prednisone. Heparin for DVT prophylaxis. Empiric antibiotics in the form of do xycycline. Objective - Vital Signs Vital signs: Vital Signs Temp 98.0 F 07/06/21 08:07 Pulse 114 H 07/06/21 08:07 Resp 18 07/06/21 08:07 BP 154/83 07/06/21 08:07 Pulse Ox 95 07/06/21 08:07 Intake & Output 07/05/21 07/06/21 07/06/21 18:59 06:59 18:59 Intake Total 600 240 Output Total 800 800 Balance -200 -560 Intake: IV 240 .9@20 240 Intake, IV Titration 200 Amount Sodium Chloride 0.9% 1, 200 000 ml @ 130 mls/hr IV . Q7H42M STA Rx#:[id number] Oral 400 Output: Urine 800 800 Other: Voiding Method Toilet Toilet Diaper Diaper # Voids 1 4 - Exam GENERAL EXAM: Alert, active, 66-year-old female, on room air, comfortable in no apparent distress. HEAD: Normocephalic/atraumatic. EYES: Normal reaction of pupils, equal size. Conjunctiva pink, sclera white. NOSE: Clear with pink turbinates. THROAT: No erythema or exudates. NECK: No masses, no JVD, no thyroid enlargement, no adenopathy. CHEST: No chest wall deformity. Symmetrical expansion. LUNGS: Equal air entry with no crackles, wheeze, rhonchi or dullness. Diminished. CVS: Regular rate and rhythm, normal S1 and S2, no gallops, no murmurs, no rubs ABDOMEN: Soft, nontender. No hepatosplenomegaly, normal bowel sounds, no guarding or rigidity. EXTREMITIES: No clubbing, no edema, no cyanosis, 2+ pulses and upper and lower extremities. MUSCULOSKELETAL: Muscle strength and tone normal. SPINE: No scoliosis or deformity SKIN: No rashes CENTRAL NERVOUS SYSTEM: No focal deficits, tone is normal in all 4 extremities. PSYCHIATRIC: Alert and oriented -3. Appropriate affect. Intact judgment and insight. - Labs CBC & Chem 7: 07/05/21 04:28 07/05/21 04:28 Labs: Abnormal Lab Results - Last 24 Hours (Table) 07/05/21 07/05/21 07/05/21 Range/Units 12:13 16:25 21:00 POC Glucose (mg/dL) 137 H 128 H 184 H (75-99) mg/dL 07/06/21 Range/Units 06:43 POC Glucose (mg/dL) 127 H (75-99) mg/dL Assessment and Plan Assessment: Acute exacerbation of chronic obstructive pulmonary disease, COVID-19 PCR, influenza A and B were negative, chest x-ray showing no active cardiopulmonary disease. Recent hospitalization for weakness, cellulitis, altered mental status related to was thought to be toxic metabolic encephalopathy related to medications History of COPD, not oxygen dependent at baseline Chronic and ongoing tobacco dependence Hypertension Hyperlipidemia Tobacco use dependence Chronic back pain Previous history of MRSA infection in the axilla GERD/reflux Plan: The patient was seen and evaluated Cleared for discharge from the pulmonary standpoint Complete a prednisone taper Continue bronchodilators Educated regarding the importance of complete smoking cessation Follow-up in our office in 1-2 weeks' I have personally seen and examined the patient, performed the documentation and the assessment and plan as written. Number of minutes spent on the visit: 10.
--- NOTE | 2021-07-06 14:35 | CA ---
Transthoracic Echo Report Name: Rocio Eduardo Age: 66 Gender: F : 1955 Exam Date: 07/05/2021 14:37 Exam Location: [facility] Ht (in): 64 Wt (lb): 200 Ordering Physician: Concha Perea Attending/Referring Phys: [id number], Brit Bench Mechanic Shweta Martinez, ELIAZAR Procedure CPT: Indications: Chest Pain Cardiac Hx: COPD, high choleterol, HTN Technical Quality: Fair Contrast 1: Total Dose (mL): Contrast 2: Total Dose (mL): MEASUREMENTS (Male / Female) Normal Values 2D ECHO LV Diastolic Diameter PLAX 3.4 cm 4.2 - 5.9 / 3.9 - 5.3 cm LV Systolic Diameter PLAX 2.8 cm IVS Diastolic Thickness 1.4 cm 0.6 - 1.0 / 0.6 - 0.9 cm LVPW Diastolic Thickness 1.2 cm 0.6 - 1.0 / 0.6 - 0.9 cm LV Relative Wall Thickness 0.8 RV Internal Dim ED PLAX 3.0 cm LA Systolic Diameter LX 3.3 cm 3.0 - 4.0 / 2.7 - 3.8 cm LA Volume 28.6 cm??? 18 - 58 / 22 - 52 cm??? M-MODE Aortic Root Diameter MM 2.9 cm MV E Point Septal Separation 1.0 cm AV Cusp Separation MM 1.8 cm DOPPLER AV Peak Velocity 131.8 cm/s AV Peak Gradient 7.0 mmHg MV Area PHT 5.4 cm??? Mitral E Point Velocity 66.4 cm/s Mitral A Point Velocity 98.2 cm/s Mitral E to A Ratio 0.7 MV Deceleration Time 139.8 ms MV E' Velocity 5.4 cm/s Mitral E to MV E' Ratio 12.3 FINDINGS Left Ventricle Left ventricular ejection fraction is estimated at 55-60 %. Left ventricular cavity size normal. Moderate concentric left ventricular hypertrophy. Right Ventricle Normal right ventricular size and function. Right Atrium Normal right atrial size. Left Atrium Normal left atrial size. No evidence for an atrial septal defect Mitral Valve Mitral annular calcification. Aortic Valve Aortic valve not well visualized. No aortic valve stenosis or regurgitation. Tricuspid Valve Structurally normal tricuspid valve. Pulmonic Valve Pulmonic valve not well visualized. Pericardium Normal pericardium. Aorta Normal size aortic root and proximal ascending aorta. CONCLUSIONS Normal LV size and systolic function. There is a moderate concentric LVH. Suboptimal views overall. No pericardial effusion. No significant abnormality on Doppler exam. No pericardial effusion Previewed by: Dr. Walter Alcantara MD (Electronically Signed) Final Date: 06 Jul 2021 14:34
== END 2021-07-04 23:56 | disposition other institution (70) ==
LOC: EC 20:59 → 3SCARD 23:12 → UNDOADMIN 23:12 → UNDODISIN 07-06 11:19
DX: J44.1 Chronic obstructive pulmonary disease with (acute) exacerbation (principal); L03.115 Cellulitis of right lower limb; L03.116 Cellulitis of left lower limb; K21.9 Gastro-esophageal reflux disease without esophagitis; I87.2 Venous insufficiency (chronic) (peripheral); J30.9 Allergic rhinitis, unspecified; E78.5 Hyperlipidemia, unspecified; Z20.822 Contact with and (suspected) exposure to COVID-19; F17.210 Nicotine dependence, cigarettes, uncomplicated; G89.29 Other chronic pain; M54.9 Dorsalgia, unspecified; I10 Essential (primary) hypertension; Z86.14 Personal history of Methicillin resistant Staphylococcus aureus infection; Z79.1 Long term (current) use of non-steroidal anti-inflammatories (NSAID); Z79.82 Long term (current) use of aspirin; Z79.899 Other long term (current) drug therapy; Z90.710 Acquired absence of both cervix and uterus; Z90.49 Acquired absence of other specified parts of digestive tract; Z71.6 Tobacco abuse counseling; Z83.3 Family history of diabetes mellitus; Z82.5 Family history of asthma and other chronic lower respiratory diseases; Z82.49 Family history of ischemic heart disease and other diseases of the circulatory system; Z82.0 Family history of epilepsy and other diseases of the nervous system
CPT/HCPCS: 96361; 96365; 96375; 99291; 36415; 94640; 93005; 80053; 83605; 83690; 83735; 84100; 84484; 85025; 85610; 85730; 81001; 87502; 87635; 71045; J2270; J2930; J3475; 71275; 85379; 93306

== ENCOUNTER 2023-04-13 14:20 | Inpatient (IN) | payer MEDICARE ==
--- NOTE | 2023-04-13 15:00 | ED ---
General Adult HPI - General Chief complaint: Shortness of Breath Stated complaint: SOB Time Seen by Provider: 04/13/23 14:20 Source: patient, EMS, RN notes reviewed, old records reviewed Mode of arrival: EMS - History of Present Illness Initial comments: This is a 68-year-old female who was diagnosed with influenza A 1 week ago and was placed on a Z-Dwayne and she states she is not getting any better and she feels more short of breath. Patient does have a history of congestive heart failure. Patient denies any chest pain or palpitations. Patient denies any recent fever. Patient has abdominal pain patient has nausea vomiting diarrhea. - Related Data Home Medications Medication Instructions Recorded Confirmed Aspirin [Adult Low Dose Aspirin EC] 81 mg PO DAILY 07/01/16 07/04/21 Sucralfate [Carafate] 1 gm PO HS 07/01/16 07/04/21 ALPRAZolam [Xanax] 0.25 mg PO BID PRN 06/26/21 07/04/21 Albuterol Nebulized [Ventolin 2.5 mg INHALATION RT-QID PRN 06/26/21 07/04/21 Nebulized] Albuterol Sulfate [Proair 1 puff INHALATION RT-QID PRN 06/26/21 07/04/21 Respiclick] DULoxetine HCL [Cymbalta] 30 mg PO DAILY 06/26/21 07/04/21 DULoxetine HCL [Cymbalta] 60 mg PO HS 06/26/21 07/04/21 Furosemide [Lasix] 40 mg PO BID@0800,1400 06/26/21 07/04/21 Meloxicam [Mobic] 15 mg PO DAILY 06/26/21 07/04/21 Nitroglycerin Sl Tabs [Nitrostat] 0.4 mg SL Q5M PRN 06/26/21 07/04/21 Omeprazole 20 mg PO HS 06/26/21 07/04/21 Potassium Chloride ER [K-Dur 20] 20 meq PO DAILY 06/26/21 07/04/21 Pregabalin 50 mg PO BID 06/26/21 07/04/21 SILVER sulfADIAZINE Cream 1 applic TOPICAL DAILY 06/26/21 07/04/21 [Silvadene 1% Cream] Triamterene-Hctz 37.5-25Mg 1 tab PO DAILY 06/26/21 07/04/21 [Maxzide 37.5-25] diphenhydrAMINE HCL [Benadryl] 25 mg PO HS PRN 06/26/21 07/04/21 Previous Rx's Medication Instructions Recorded Acetaminophen Tab [Tylenol] 650 mg PO Q6HR PRN tab 06/28/21 Doxycycline Hyclate 100 mg PO Q12H 1 Days #20 tab 06/28/21 traMADol HCl [Ultram] 50 mg PO TID PRN tab 06/28/21 Albuterol Inhaler [Ventolin Hfa 2 puff INHALATION RT-QID #18 gm 04/13/23 Inhaler] predniSONE [Deltasone] 40 mg PO DAILY #8 tab 04/13/23 Allergies Allergy/AdvReac Type Severity Reaction Status Date / Time sulfamethoxazole Allergy Rash/Hives Verified 04/13/23 15:22 [From ] trimethoprim [From ] Allergy Rash/Hives Verified 04/13/23 15:22 Review of Systems ROS Statement: Those systems with pertinent positive or pertinent negative responses have been documented in the HPI. ROS Other: All systems not noted in ROS Statement are negative. Past Medical History Past Medical History: COPD, GERD/Reflux, Hyperlipidemia, Hypertension History of Any Multi-Drug Resistant Organisms: MRSA Date of last positivie culture/infection: 2008 MDRO Source:: Axilla, Cheek Past Surgical History: Back Surgery, Cholecystectomy, Heart Catheterization, Hernia Repair, Hysterectomy, Orthopedic Surgery Additional Past Surgical History / Comment(s): bilateral knee scope, left carpal tunnel, left elbow surgery, lumbar back surgery, hysterectomy due to dysfunctional uterine bleeding, colonoscopy in the past. Past Anesthesia/Blood Transfusion Reactions: No Reported Reaction Past Psychological History: Depression Smoking Status: Current every day smoker Past Alcohol Use History: None Reported Past Drug Use History: None Reported - Past Family History Mother Family Medical History: Cancer, COPD, Diabetes Mellitus Additional Family Medical History / Comment(s): Mother at age 73 with history of lung cancer and diabetes. Father Family Medical History: COPD, Diabetes Mellitus Additional Family Medical History / Comment(s): Father is alive at age 83 with history of diabetes mellitus with bilateral lower extremity amputations, coronary artery disease, heart failure, atrial fibrillation. Brother(s) Additional Family Medical History / Comment(s): Patient has 2 brothers and 2 sisters and she does not have any contact with them for more than 6 years. Daughter(s) Additional Family Medical History / Comment(s): Patient has 3 children. One at age 34 from heart problems or pneumonia. 1 has seizure disorder and blood cancer, one is healthy. General Exam - General Exam Comments Initial Comments: GENERAL: Patient is well-developed and well-nourished. Patient is nontoxic and well- hydrated and is in mild distress. ENT: Neck is soft and supple. No significant lymphadenopathy is noted. Oropharynx is clear. Moist mucous membranes. Neck has full range of motion without eliciting any pain. EYES: The sclera were anicteric and conjunctiva were pink and moist. Extraocular movements were intact and pupils were equal round and reactive to light. Eyelids were unremarkable. PULMONARY: Patient has crackles in the bases and some expiratory wheezing CARDIOVASCULAR: There is a regular rate and rhythm without any murmurs gallops or rubs. ABDOMEN: Soft and nontender with normal bowel sounds. SKIN: Skin is clear with no lesions or rashes and otherwise unremarkable. NEUROLOGIC: Patient is alert and oriented x3. Cranial nerves II through XII are grossly intact. Motor and sensory are also intact. Normal speech, volume and content. Symmetrical smile. MUSCULOSKELETAL: Normal extremities with adequate strength and full range of motion. 1+ edema LYMPHATICS: No significant lymphadenopathy is noted PSYCHIATRIC: Normal psychiatric evaluation. Course Vital Signs 04/13/23 04/13/23 14:21 14:45 Temperature 99.4 F Pulse Rate 102 H Respiratory 22 22 Rate Blood Pressure 142/83 O2 Sat by Pulse 93 L Oximetry Medical Decision Making - Medical Decision Making EKG is interpreted by myself but EKG shows sinus rhythm at 95 bpm parable 150 QRS is 84 QT interval 346 QTc is 398 per patient EKG shows no ST segment elevation or depression. Was pt. sent in by a medical professional or institution (, PA, ADULT EDUCATOR, urgent care, hospital, or detention...) When possible be specific @ -No Did you speak to anyone other than the patient for history (EMS, parent, family, police, friend...)? What history was obtained from this source @ -No Did you review nursing and triage notes (agree or disagree)? Why? @ -I reviewed and agree with nursing and triage notes Were old charts reviewed (outside hosp., previous admission, EMS record, old EKG, old radiological studies, urgent care reports/EKG's, detention records)? Report findings @ -I reviewed prior charts and prior lab work on this patient Differential Diagnosis (chest pain, altered mental status, abdominal pain women, abdominal pain men, vaginal bleeding, weakness, fever, dyspnea, syncope, headache, dizziness, GI bleed, back pain, seizure, CVA, palpatations, mental health, musculoskeletal)? @ -Differential Dyspnea: Coronary syndrome, arrhythmia, tamponade, asthma, COPD, pulmonary embolism, pneumonia, pneumothorax, pulmonary effusion, anaphylaxis, diabetic ketoacidosis, flailed chest, pulmonary contusion, diaphragmatic rupture, anemia, neuromuscular, this is not meant to be an all-inclusive list. EKG interpreted by me (3pts min.). @ -As above X-rays interpreted by me (1pt min.). @ -Chest x-ray shows no acute abnormality. CT interpreted by me (1pt min.). @ -None done U/S interpreted by me (1pt. min.). @ -None done What testing was considered but not performed or refused? (CT, X-rays, U/S, labs)? Why? @ -None What meds were considered but not given or refused? Why? @ -None Did you discuss the management of the patient with other professionals (professionals i.e. , PA, ADULT EDUCATOR, lab, RT, psych nurse, web content & social media manager, sleep lab technician, teacher, fire officer, nurse case management)? Give summary @ -No Was smoking cessation discussed for >3mins.? @ -No Was critical care preformed (if so, how long)? @ -No Were there social determinants of health that impacted care today? How? (Homelessness, low income, unemployed, alcoholism, drug addiction, transportation, low edu. Level, literacy, decrease access to med. care, penitentiary, rehab)? @ -No Was there de-escalation of care discussed even if they declined (Discuss DNR or withdrawal of care, Hospice)? DNR status @ -No What co-morbidities impacted this encounter? (DM, HTN, Smoking, COPD, CAD, Cancer, CVA, ARF, Chemo, Hep., AIDS, mental health diagnosis, sleep apnea, morbid obesity)? @ -None Was patient admitted / discharged? Hospital course, mention meds given and route, prescriptions, significant lab abnormalities, going to OR and other pertinent info. @ -Patient was given a breathing treatment and steroids in the emergency department was feeling better. Patient did want to try doing a similar regime at home. Undiagnosed new problem with uncertain prognosis? @ -No Drug Therapy requiring intensive monitoring for toxicity (Heparin, Nitro, Insulin, Cardizem)? @ -No Were any procedures done? @ -No Diagnosis/symptom? @ -Influenza A Acute, or Chronic, or Acute on Chronic? @ -Acute Uncomplicated (without systemic symptoms) or Complicated (systemic symptoms)? @ -Complicated Side effects of treatment? @ -No Exacerbation, Progression, or Severe Exacerbation? @ -No Poses a threat to life or bodily function? How? (Chest pain, [place], [place], pneumonia, PE, COPD, DKA, ARF, appy, cholecystitis, CVA, Diverticulitis, Homicidal, Suicidal, threat to staff... and all critical care pts) @ -No Diagnosis/symptom? @ -Bronchospasm Acute, or Chronic, or Acute on Chronic? @ -Acute Uncomplicated (without systemic symptoms) or Complicated (systemic symptoms)? @ -Complicated Side effects of treatment? @ -None Exacerbation, Progression, or Severe Exacerbation] @ -No Poses a threat to life or bodily function? @ -No - Lab Data Result diagrams: 04/13/23 14:40 04/13/23 14:40 Lab Results 04/13/23 04/13/23 04/13/23 Range/Units 14:40 14:40 14:40 WBC 6.3 (3.8-10.6) k/uL RBC 5.09 (3.80-5.40) m/uL Hgb 15.3 (11.4-16.0) gm/dL Hct 45.3 (34.0-46.0) % MCV 89.1 (80.0-100.0) fL MCH 30.1 (25.0-35.0) pg MCHC 33.8 (31.0-37.0) g/dL RDW 14.4 (11.5-15.5) % Plt Count 243 (150-450) k/uL MPV 7.8 Neutrophils % 72 % Lymphocytes % 17 % Monocytes % 7 % Eosinophils % 0 % Basophils % 0 % Neutrophils # 4.5 (1.3-7.7) k/uL Lymphocytes # 1.1 (1.0-4.8) k/uL Monocytes # 0.4 (0-1.0) k/uL Eosinophils # 0.0 (0-0.7) k/uL Basophils # 0.0 (0-0.2) k/uL PT 10.3 (10.0-12.5) sec INR 0.9 (<1.2) APTT 23.8 (22.0-30.0) sec Sodium 132 L (137-145) mmol/L Potassium 4.3 (3.5-5.1) mmol/L Chloride 101 (98-107) mmol/L Carbon Dioxide 24 (22-30) mmol/L Anion Gap 7 mmol/L BUN 10 (7-17) mg/dL Creatinine 0.58 (0.52-1.04) mg/dL Est GFR (CKD-EPI)AfAm >90 (>60 ml/min/1.73 sqM) Est GFR (CKD-EPI)NonAf >90 (>60 ml/min/1.73 sqM) Glucose 166 H (74-99) mg/dL Plasma Lactic Acid Yogesh (0.7-2.0) mmol/L Calcium 8.5 (8.4-10.2) mg/dL Magnesium 1.8 (1.6-2.3) mg/dL Total Bilirubin 0.7 (0.2-1.3) mg/dL AST 47 H (14-36) U/L ALT 33 (4-34) U/L Alkaline Phosphatase 98 (38-126) U/L Troponin I (0.000-0.034) ng/mL NT-Pro-B Natriuret Pep 31 pg/mL Total Protein 6.8 (6.3-8.2) g/dL Albumin 3.7 (3.5-5.0) g/dL Influenza Type A (PCR) (Not Detectd) Influenza Type B (PCR) (Not Detectd) RSV (PCR) (Not Detectd) SARS-CoV-2 (PCR) (Not Detectd) 04/13/23 04/13/23 04/13/23 Range/Units 14:40 14:40 14:40 WBC (3.8-10.6) k/uL RBC (3.80-5.40) m/uL Hgb (11.4-16.0) gm/dL Hct (34.0-46.0) % MCV (80.0-100.0) fL MCH (25.0-35.0) pg MCHC (31.0-37.0) g/dL RDW (11.5-15.5) % Plt Count (150-450) k/uL MPV Neutrophils % % Lymphocytes % % Monocytes % % Eosinophils % % Basophils % % Neutrophils # (1.3-7.7) k/uL Lymphocytes # (1.0-4.8) k/uL Monocytes # (0-1.0) k/uL Eosinophils # (0-0.7) k/uL Basophils # (0-0.2) k/uL PT (10.0-12.5) sec INR (<1.2) APTT (22.0-30.0) sec Sodium (137-145) mmol/L Potassium (3.5-5.1) mmol/L Chloride (98-107) mmol/L Carbon Dioxide (22-30) mmol/L Anion Gap mmol/L BUN (7-17) mg/dL Creatinine (0.52-1.04) mg/dL Est GFR (CKD-EPI)AfAm (>60 ml/min/1.73 sqM) Est GFR (CKD-EPI)NonAf (>60 ml/min/1.73 sqM) Glucose (74-99) mg/dL Plasma Lactic Acid Yogesh 1.2 (0.7-2.0) mmol/L Calcium (8.4-10.2) mg/dL Magnesium (1.6-2.3) mg/dL Total Bilirubin (0.2-1.3) mg/dL AST (14-36) U/L ALT (4-34) U/L Alkaline Phosphatase (38-126) U/L Troponin I <0.012 (0.000-0.034) ng/mL NT-Pro-B Natriuret Pep pg/mL Total Protein (6.3-8.2) g/dL Albumin (3.5-5.0) g/dL Influenza Type A (PCR) Detected A (Not Detectd) Influenza Type B (PCR) Not Detected (Not Detectd) RSV (PCR) Not Detected (Not Detectd) SARS-CoV-2 (PCR) Not Detected (Not Detectd) Disposition Clinical Impression: Influenza A, Acute bronchospasm Disposition: HOME SELF-CARE Condition: Good Instructions (If sedation given, give patient instructions): Bronchospasm (ED), Influenza (ED) Prescriptions: predniSONE [Deltasone] 40 mg PO DAILY #8 tab Albuterol Inhaler [Ventolin Hfa Inhaler] 2 puff INHALATION RT-QID #18 gm Is patient prescribed a controlled substance at d/c from ED?: No Referrals: Dwayne Holloway [Primary Care Provider] - 1-2 days Time of Disposition: 15:43
[2023-04-13 15:07] LABS: ALT 33 U/L (4-34); African American GFR (CKD) >90 (>60 ml/min/1.73 sqM); Albumin 3.7 g/dL (3.5-5.0); Anion Gap 7 mmol/L; Blood Urea Nitrogen 10 mg/dL (7-17); Carbon Dioxide 24 mmol/L (22-30); Chloride 101 mmol/L (98-107); Glucose 166 mg/dL (74-99); Magnesium 1.8 mg/dL (1.6-2.3); Non-African American GFR(CKD) >90 (>60 ml/min/1.73 sqM); Sodium 132 mmol/L (137-145); Total Bilirubin 0.7 mg/dL (0.2-1.3)
--- NOTE | 2023-04-13 15:07 | XR ---
EXAMINATION TYPE: XR chest 2V DATE OF EXAM: 04/13/2023 COMPARISON: 07/04/2021 HISTORY: 68 year-old female shortness of breath, difficulty breathing TECHNIQUE: AP and lateral views FINDINGS: Portable exam for limited by large body habitus. Heart upper limits of normal in size. Mild interstit ial density without consolidation or pleural effusion. IMPRESSION: Mild interstitial density could reflect bronchitis or asthma. Correlate with fluid status to exclude mild pulmonary vascular congestion. No focal infiltrate seen.
[2023-04-13 15:10] LABS: AST 47 U/L (14-36); Alkaline Phosphatase 98 U/L (38-126); Calcium 8.5 mg/dL (8.4-10.2); Potassium 4.3 mmol/L (3.5-5.1); Total Protein 6.8 g/dL (6.3-8.2)
[2023-04-13 15:14] LABS: INR 0.9 (<1.2); Partial Thromboplastin Time 23.8 sec (22.0-30.0); Prothrombin Time 10.3 sec (10.0-12.5)
[2023-04-13 15:16] LABS: NT-Pro-B-Type Natriuretic Pept 31 pg/mL
[2023-04-13 15:18] LABS: Basophils % (A) 0 %; Eosinophils % (A) 0 %; HCT 45.3 % (34.0-46.0); HGB 15.3 gm/dL (11.4-16.0); Lymphocytes # (A) 1.1 k/uL (1.0-4.8); Lymphocytes % (A) 17 %; MCH 30.1 pg (25.0-35.0); MCHC 33.8 g/dL (31.0-37.0); MCV 89.1 fL (80.0-100.0); Mean Platelet Volume 7.8; Monocytes # (A) 0.4 k/uL (0-1.0); Monocytes % (A) 7 %; Neutrophils # (A) 4.5 k/uL (1.3-7.7); Neutrophils % (A) 72 %; Platelet Count 243 k/uL (150-450); RBC 5.09 m/uL (3.80-5.40); RDW 14.4 % (11.5-15.5); WBC 6.3 k/uL (3.8-10.6)
[2023-04-13] MEDS: ALBUTEROL NEBULIZED 2.5 MG/3 ML INHALATION STA ×2 (15:42→16:54)
[2023-04-13] MEDS: IPRATROPIUM 0.5 MG/2.5 ML NEBU INHALATION STA (15:42)
[2023-04-13] MEDS: methylPREDNISolone SOD SUCCI 125 MG/2 ML VIAL IV STA (15:55)
[2023-04-13] MEDS: guaiFENesin-Coden 100-10MG/5ML 10 ML CUP PO STA (16:52)
[2023-04-13] MEDS ORDERED: NALOXONE 0.4 MG/ML 1 ML VIAL IVP PRN (17:45)
[2023-04-13] MEDS ORDERED: ALPRAZolam 0.25 MG TAB PO PRN (19:23)
[2023-04-13] MEDS: IPRATROPIUM-ALBUTEROL 3 ML NEB INHALATION SCH (19:34)
[2023-04-13] MEDS: guaiFENesin 600 MG TABLET.ER PO SCH (21:23)
[2023-04-13] MEDS: DULoxetine HCL 60 MG CAPSULE.DR PO SCH (21:23)
[2023-04-13] MEDS: PANTOPRAZOLE 40 MG TABLET PO SCH (21:23)
[2023-04-13] MEDS: methylPREDNISolone SOD SUCCI 125 MG/2 ML VIAL IV SCH (21:25)
[2023-04-13 23:42] LABS: Glucose,Whole Blood 210 mg/dL (70-110)
[2023-04-14] MEDS: INSULIN ASPART (NovoLOG) 100 UNIT/ML VIAL SQ SCH (00:43)
[2023-04-14] MEDS: ACETAMINOPHEN TAB 325 MG TAB PO PRN (01:06)
[2023-04-14] MEDS: LOSARTAN 50 MG TAB PO SCH (01:06)
--- NOTE | 2023-04-14 04:24 | P.CNPUL ---
History of Present Illness Consult date: 04/14/23 Requesting physician: Yaneth Adams Reason for consult: other (COPD exacerbation, influenza A) Chief complaint: Shortness of breath, cough, intermittent fevers History of present illness: Patient is a 68-year-old white female with past medical history significant for COPD, current ongoing tobacco dependence, hypertension, hyperlipidemia, GERD. Her primary care provider is Dr. Holloway. She presented to the hospital yesterday afternoon complaining mostly of flulike symptoms. Patient's grandson had tested positive for influenza A approximately 1 week ago. She herself denies being tested for influenza, but started to develop flulike symptoms that started last Thursday. She has had progressively worsening shortness of breath, a dry and nonproductive cough, intermittent subjective fevers, nausea, diarrhea approximately 2-3 times per day, lightheadedness, headache, dizziness. She did test positive for influenza A on arrival to our facility. Chest x-ray demonstrates mild interstitial density which is nonspecific and could could reflect bronchitis or mild pulmonary vascular congestion. No focal infiltrates were seen. CBC on arrival unremarkable. No leukocytosis. BMP on arrival also unremarkable. Troponin less than 0.012 x 2. NT proBNP low. Patient is currently afebrile. She has been empirically started on doxycycline. She is currently sitting up in bed, on 2 L/min nasal cannula, in no acute distress. Vital signs are stable. Review of Systems REVIEW OF SYSTEMS: CONSTITUTIONAL: Denies any recent significant weight loss or weight gain. Admits intermittent subjective fevers. Admits generalized malaise and fatigue EYES: Denies change in vision. EARS, NOSE, MOUTH, THROAT: Admits occasional self-limiting mild frontal headaches. Denies any sore throat, postnasal drip, earache CARDIOVASCULAR: Denies chest pain, palpitations or syncopal episodes. RESPIRATORY: see HPI GASTROINTESTINAL: Admits reduced appetite, nausea, and diarrhea 2-3 times per day. Denies any benson blood or melena. Denies any vomiting or hematemesis. Denies any abdominal pain. GENITOURINARY: Denies hematuria, denies infections. MUSKULOSKELETAL: Denies pain, denies swelling. INTEGUMENTARY: Denies rash, denies eczema. NEUROLOGICAL: Denies recent memory loss, no recent seizure activity. PSYCHIATRIC: Denies anxiety, denies depression. HEMATOLOGIC/LYMPHATIC: Denies anemia, denies enlarged lymph node Past Medical History Past Medical History: COPD, GERD/Reflux, Hyperlipidemia, Hypertension History of Any Multi-Drug Resistant Organisms: MRSA Date of last positivie culture/infection: 2008 MDRO Source:: Axilla, Cheek Past Surgical History: Back Surgery, Cholecystectomy, Heart Catheterization, Hernia Repair, Hysterectomy, Orthopedic Surgery Additional Past Surgical History / Comment(s): bilateral knee scope, left carpal tunnel, left elbow surgery, lumbar back surgery, hysterectomy due to dysfunct ional uterine bleeding, colonoscopy in the past. Past Anesthesia/Blood Transfusion Reactions: No Reported Reaction Past Psychological History: Depression Smoking Status: Current every day smoker Past Alcohol Use History: None Reported Past Drug Use History: None Reported - Past Family History Mother Family Medical History: Cancer, COPD, Diabetes Mellitus Additional Family Medical History / Comment(s): Mother at age 73 with history of lung cancer and diabetes. Father Family Medical History: COPD, Diabetes Mellitus Additional Family Medical History / Comment(s): Father is alive at age 83 with history of diabetes mellitus with bilateral lower extremity amputations, coronary artery disease, heart failure, atrial fibrillation. Brother(s) Additional Family Medical History / Comment(s): Patient has 2 brothers and 2 sisters and she does not have any contact with them for more than 6 years. Daughter(s) Additional Family Medical History / Comment(s): Patient has 3 children. One at age 34 from heart problems or pneumonia. 1 has seizure disorder and blood cancer, one is healthy. Medications and Allergies Home Medications Medication Instructions Recorded Confirmed Type Aspirin [Adult Low Dose Aspirin EC] 81 mg PO DAILY 07/01/16 04/13/23 History ALPRAZolam [Xanax] 0.25 mg PO TID PRN 06/26/21 04/13/23 History DULoxetine HCL [Cymbalta] 30 mg PO DAILY 06/26/21 04/13/23 History DULoxetine HCL [Cymbalta] 60 mg PO HS 06/26/21 04/13/23 History Omeprazole 20 mg PO HS 06/26/21 04/13/23 History Albuterol Inhaler [Ventolin Hfa 2 puff INHALATION RT-QID #18 gm 04/13/23 Rx Inhaler] HYDROcodone/APAP 10-325MG [[place] 1 tab PO TID PRN 04/13/23 04/13/23 History 10-325] Ibuprofen [Motrin] 800 mg PO TID PRN 04/13/23 04/13/23 History predniSONE [Deltasone] 40 mg PO DAILY #8 tab 04/13/23 Rx Allergies Allergy/AdvReac Type Severity Reaction Status Date / Time sulfamethoxazole Allergy Rash/Hives Verified 04/13/23 15:22 [From ] trimethoprim [From ] Allergy Rash/Hives Verified 04/13/23 15:22 Physical Exam Vitals: Vital Signs Temp Pulse Resp BP Pulse Ox 04/14/23 03:00 79 20 165/104 91 L 04/14/23 02:00 83 19 179/104 91 L 04/14/23 01:00 88 18 166/99 91 L 04/13/23 23:00 90 19 184/121 93 L 04/13/23 21:03 98.1 F 86 19 136/65 92 L 04/13/23 20:22 92 19 144/106 93 L 04/13/23 19:40 89 04/13/23 19:36 98 04/13/23 19:22 88 19 150/113 92 L 04/13/23 18:16 99.1 F 91 20 156/90 93 L 04/13/23 17:40 83 L 04/13/23 16:01 92 04/13/23 15:56 84 20 108/75 04/13/23 15:42 92 04/13/23 14:45 22 04/13/23 14:21 99.4 F 102 H 22 142/83 93 L Intake and Output 04/13/23 04/13/23 04/14/23 14:59 22:59 06:59 Other: Weight 108.862 kg GENERAL EXAM: Alert, 68-year-old white female, morbidly obese and disheveled,, comfortable in no apparent distress. HEAD: Normocephalic and atraumatic EYES: Normal reaction of pupils, equal size. NOSE: Clear with pink turbinates. THROAT: No erythema or exudates. NECK: No masses, no JVD. CHEST: No chest wall deformity. LUNGS: Equal air entry with expiratory wheezes and rhonchi with rales. On 2 L/min nasal cannula. No conversational dyspnea or accessory muscle use at rest.. CVS: S1 and S2 normal with no audible murmur, regular rhythm. No extra heart sounds ABDOMEN: No hepatosplenomegaly, active bowel sounds, no guarding or rigidity. There is an implanted device in the left upper abdomen SPINE: No scoliosis or deformity SKIN: No rashes CENTRAL NERVOUS SYSTEM: No focal deficits, tone is normal in all 4 extremities. EXTREMITIES: Mild nonpitting bilateral lower extremity edema with chronic venous stasis changes. No clubbing, or cyanosis. Peripheral pulses are intact. Results - Laboratory Findings CBC and BMP: 04/13/23 14:40 04/13/23 14:40 PT/INR, D-dimer PT 10.3 sec (10.0-12.5) 04/13/23 14:40 INR 0.9 (<1.2) 04/13/23 14:40 Abnormal lab findings: Abnormal Labs 04/13/23 04/13/23 04/13/23 14:40 14:40 23:41 Sodium 132 L Glucose 166 H POC Glucose (mg/dL) 210 H AST 47 H Influenza Type A (PCR) Detected A - Diagnostic Findings Chest x-ray: image reviewed Assessment and Plan Assessment: Acute COPD exacerbation, secondary to acute influenza A infection. Chest x-ray demonstrates mild interstitial density which is nonspecific and could could reflect bronchitis or mild pulmonary vascular congestion. No focal infiltrates were seen. Acute hypoxemic respiratory failure, secondary to above History of COPD, not oxygen dependent at baseline Hypertension History of hyperlipidemia Chronic ongoing tobacco dependence, currently smoking 1.5 packs/day Chronic back pain, with implanted pain pump GERD, without esophagitis Morbid obesity, with a BMI of 43.9 kg/m Plan: Patient's medications, labs, chest x-ray reviewed Continue on supplemental oxygen to maintain oxygen saturation of 92% or greater Start patient on combination of bronchodilators, Symbicort inhaler, and IV Solu- Medrol Patient was started on Tamiflu Also, empirically covered on doxycycline As needed Tessalon Marcus for antitussive Protonix for GI prophylaxis We will continue to follow I have personally seen and examined the patient, performed the documentation and the assessment and plan as written. Number of minutes spent on the visit:20 Time with Patient: Greater than 30
[2023-04-14] MEDS: OSELTAMIVIR 75 MG CAP PO SCH (04:48)
[2023-04-14 06:09] LABS: Glucose,Whole Blood 188 mg/dL (70-110)
[2023-04-14] MEDS: SYMBICORT 160-4.5 MCG INHALER INHALATION SCH (08:39)
[2023-04-14] MEDS ORDERED: AZITHROMYCIN 500 MG TAB PO SCH (09:00)
[2023-04-14] MEDS: ASPIRIN 81 MG PO SCH (09:29)
[2023-04-14] MEDS: DULoxetine HCL 30 MG CAPSULE.DR PO SCH (09:29)
[2023-04-14] MEDS: DOXYCYCLINE 100 MG CAP PO SCH (09:29)
[2023-04-14 09:33] LABS: Glucose,Whole Blood 203 mg/dL (70-110)
--- NOTE | 2023-04-14 10:49 | P.CNPUL ---
History of Present Illness Consult date: 04/14/23 Reason for consult: dyspnea, COPD History of present illness: This is a 68-year-old female patient, a chronic smoker with known history of COPD who smokes around 1 pack of cigarettes a day. The patient coming to the hospital because of increased dyspnea cough chest tightness and wheezing consistent with COPD exacerbation. The same time the patient was feeling weak and tired and having body aches and feeling feverish. In the emergency, the patient was found to be history of exacerbation. She also tested positive for influenza and the patient has an acute influenza A syndrome. Chest x-ray is not showing any acute airspace disease or consolidation. There is some increased interstitial markings bilaterally. The patient is currently on oxygen and she is on 2 L with a pulse ox of 93%. She denies being on O2 on outpatient basis. Her white cell count at 6.3 with a hemoglobin 15.3. Coagulation profile is within normal with a BUN of 10 and a creatinine of 0.58 and a sodium level of 132 and a potassium level of 4.3. Troponins are negative. The patient has no altered mentation. No pleurisy or hemoptysis. No nausea vomiting or diarrhea. She is nonambulatory at the patient has chronic back issues and neuropathy which has left the patient debilitated and nonambulatory for several years. She lives at home with family. Review of Systems CONSTITUTIONAL: Denies any recent significant weight loss or weight gain. Admits intermittent subjective fevers. Admits generalized malaise and fatigue EYES: Denies change in vision. EARS, NOSE, MOUTH, THROAT: Admits occasional self-limiting mild frontal h eadaches. Denies any sore throat, postnasal drip, earache CARDIOVASCULAR: Denies chest pain, palpitations or syncopal episodes. RESPIRATORY: see HPI GASTROINTESTINAL: Admits reduced appetite, nausea, and diarrhea 2-3 times per day. Denies any benson blood or melena. Denies any vomiting or hematemesis. Denies any abdominal pain. GENITOURINARY: Denies hematuria, denies infections. MUSKULOSKELETAL: Denies pain, denies swelling. INTEGUMENTARY: Denies rash, denies eczema. NEUROLOGICAL: Denies recent memory loss, no recent seizure activity. PSYCHIATRIC: Denies anxiety, denies depression. HEMATOLOGIC/LYMPHATIC: Denies anemia, denies enlarged lymph node Past Medical History Past Medical History: COPD, GERD/Reflux, Hyperlipidemia, Hypertension History of Any Multi-Drug Resistant Organisms: MRSA Date of last positivie culture/infection: 2008 MDRO Source:: Axilla, Cheek Past Surgical History: Back Surgery, Cholecystectomy, Heart Catheterization, Hernia Repair, Hysterectomy, Orthopedic Surgery Additional Past Surgical History / Comment(s): bilateral knee scope, left carpal tunnel, left elbow surgery, lumbar back surgery, hysterectomy due to dysfunctional uterine bleeding, colonoscopy in the past. Past Anesthesia/Blood Transfusion Reactions: No Reported Reaction Past Psychological History: Depression Smoking Status: Current every day smoker Past Alcohol Use History: None Reported Past Drug Use History: None Reported - Past Family History Mother Family Medical History: Cancer, COPD, Diabetes Mellitus Additional Family Medical History / Comment(s): Mother at age 73 with history of lung cancer and diabetes. Father Family Medical History: COPD, Diabetes Mellitus Additional Family Medical History / Comment(s): Father is alive at age 83 with history of diabetes mellitus with bilateral lower extremity amputations, coronary artery disease, heart failure, atrial fibrillation. Brother(s) Additional Family Medical History / Comment(s): Patient has 2 brothers and 2 sisters and she does not have any contact with them for more than 6 years. Daughter(s) Additional Family Medical History / Comment(s): Patient has 3 children. One at age 34 from heart problems or pneumonia. 1 has seizure disorder and blood cancer, one is healthy. Medications and Allergies Home Medications Medication Instructions Recorded Confirmed Type Aspirin [Adult Low Dose Aspirin EC] 81 mg PO DAILY 07/01/16 04/13/23 History ALPRAZolam [Xanax] 0.25 mg PO TID PRN 06/26/21 04/13/23 History DULoxetine HCL [Cymbalta] 30 mg PO DAILY 06/26/21 04/13/23 History DULoxetine HCL [Cymbalta] 60 mg PO HS 06/26/21 04/13/23 History Omeprazole 20 mg PO HS 06/26/21 04/13/23 History Albuterol Inhaler [Ventolin Hfa 2 puff INHALATION RT-QID #18 gm 04/13/23 Rx Inhaler] HYDROcodone/APAP 10-325MG [[place] 1 tab PO TID PRN 02/26/24 02/26/24 History 10-325] Ibuprofen [Motrin] 800 mg PO TID PRN 04/13/23 04/13/23 History predniSONE [Deltasone] 40 mg PO DAILY #8 tab 04/13/23 Rx Allergies Allergy/AdvReac Type Severity Reaction Status Date / Time sulfamethoxazole Allergy Rash/Hives Verified 04/13/23 15:22 [From ] trimethoprim [From ] Allergy Rash/Hives Verified 04/13/23 15:22 Physical Exam Vitals: Vital Signs Temp Pulse Resp BP Pulse Ox 04/14/23 08:46 92 04/14/23 08:39 92 L 04/14/23 08:37 92 04/14/23 06:08 80 19 155/97 90 L 04/14/23 04:00 89 19 153/102 93 L 04/14/23 03:00 79 20 165/104 91 L 04/14/23 02:00 83 19 179/104 91 L 04/14/23 01:00 88 18 166/99 91 L 04/13/23 23:00 90 19 184/121 93 L 04/13/23 21:03 98.1 F 86 19 136/65 92 L 04/13/23 20:22 92 19 144/106 93 L 04/13/23 19:40 89 04/13/23 19:36 98 04/13/23 19:22 88 19 150/113 92 L 04/13/23 18:16 99.1 F 91 20 156/90 93 L 04/13/23 17:40 83 L 04/13/23 16:01 92 04/13/23 15:56 84 20 108/75 04/13/23 15:42 92 04/13/23 14:45 22 04/13/23 14:21 99.4 F 102 H 22 142/83 93 L GENERAL EXAM: Alert, 68-year-old white female, morbidly obese and disheveled,, comfortable in no apparent distress. The patient is currently on 2 L of oxygen by nasal cannula HEAD: Normocephalic and atraumatic EYES: Normal reaction of pupils, equal size. NOSE: Clear with pink turbinates. THROAT: No erythema or exudates. NECK: No masses, no JVD. CHEST: No chest wall deformity. LUNGS: Equal air entry with expiratory wheezes and rhonchi with rales. No conversational dyspnea or accessory muscle use at rest.. CVS: S1 and S2 normal with no audible murmur, regular rhythm. No extra heart sounds ABDOMEN: No hepatosplenomegaly, active bowel sounds, no guarding or rigidity. There is an implanted device in the left upper abdomen SPINE: No scoliosis or deformity SKIN: No rashes CENTRAL NERVOUS SYSTEM: No focal deficits, tone is normal in all 4 extremities. The patient has been chronically nonambulatory. EXTREMITIES: Mild nonpitting bilateral lower extremity edema with chronic venous stasis changes. No clubbing, or cyanosis. Peripheral pulses are intact. Chronic neuropathic changes lower extremities bilaterally and the patient has muscle atrophy and contractures. She is nonambulatory at this point in time. Results - Laboratory Findings CBC and BMP: 04/13/23 14:40 04/13/23 14:40 PT/INR, D-dimer PT 10.3 sec (10.0-12.5) 04/13/23 14:40 INR 0.9 (<1.2) 04/13/23 14:40 Abnormal lab findings: Abnormal Labs 04/13/23 04/13/23 04/13/23 14:40 14:40 23:41 Sodium 132 L Glucose 166 H POC Glucose (mg/dL) 210 H AST 47 H Influenza Type A (PCR) Detected A 04/14/23 06:07 Sodium Glucose POC Glucose (mg/dL) 188 H AST Influenza Type A (PCR) - Diagnostic Findings Chest x-ray: image reviewed Assessment and Plan Plan: Acute COPD exacerbation, secondary to acute influenza A infection. No evidence of any pneumonia or airspace disease or consolidation on the chest x-ray findings. Acute hypoxemic respiratory failure, secondary to above, currently on 2 L of o xygen by nasal cannula Acute influenza A syndrome. The patient has been exposed to family members with influenza as her 33-year-old son had the flu. History of COPD, not oxygen dependent at baseline Smoker, 1.5 PPD Hypertension History of hyperlipidemia Chronic ongoing tobacco dependence, currently smoking 1.5 packs/day Chronic back pain, with implanted pain pump, nonfunctional at this point and she is on [place] GERD, without esophagitis Morbid obesity, with a BMI of 43.9 kg/m History of neuropathy and the patient is nonambulatory at this point. Plan: Titrate oxygen flow to maintain saturation above 90% Start patient on combination of bronchodilators, Symbicort inhaler V Solu-Medrol at a dose of 60 mg every 6 hours to monitor the blood sugars Patient was started on Tamiflu 75 mg p.o. twice a day Also, empirically covered on doxycycline As needed Tessalon Perles for antitussive Protonix for GI prophylaxis Smoking cessation counseling Resume home medications We will continue to follow
[2023-04-14 11:09] LABS: HCT 48.3 % (37.2-46.3); HGB 15.6 g/dL (12.0-15.0); MCH 28.9 pg (27.0-32.0); MCHC 32.3 g/dL (32.0-37.0); MCV 89.4 FL (80.0-97.0); Mean Platelet Volume 10.4 FL (9.5-12.2); NRBC Per 100 WBC 0 X 10*3/uL (0.00-0.01); Platelet Count 199 X 10*3/uL (140-440); RDW 14.2 % (11.5-14.5); WBC 3.06 X 10*3/uL (4.50-10.00)
--- NOTE | 2023-04-14 12:31 | P.HPIM ---
History of Present Illness H&P Date: 04/14/23 Chief Complaint: Shortness of breath * 66-year-old patient with past medical history significant for COPD, history of tobacco use, hypertension, hyperlipidemia, gastroesophageal reflux disease, previous history of cellulitis and MRSA infection presents to the emergency department with complains of shortness of breath. Patient states she was diagnosed with influenza a viral infection about 1 week ago and was placed on Z-Dwayne. Patient states his symptoms have been getting worse and she was short of breath as well as did not feel any improvement. Patient denies associated fever, chills however does complain of cough, nausea, vomiting diarrhea and abdominal discomfort. * Workup initiated in ER included serum chemistry which showed sodium 132 potassium 4.3 glucose 166 BUN 10 creatinine 0.58. * CBC showed WBC 6.3 hemoglobin 15.3 hematocrit 45 platelet 243, INR of 0.9. * Chest x-ray obtained in ER negative for acute intrathoracic process however findings consistent with bronchitis * Patient was noted to have hypoxia on ambulation while in ER hence he was admitted for close monitoring secondary to sequel of influenza infection and bronchospasm REVIEW OF SYSTEMS: Cough, shortness of breath CONSTITUTIONAL: No fever, no malaise, no fatigue. HEENT: No recent visual problems or hearing problems. Denied any sore throat. CARDIOVASCULAR: No chest pain, orthopnea, PND, no palpitations, no syncope. PULMONARY: Cough, shortness of breath GASTROINTESTINAL: No diarrhea, no nausea, no vomiting, no abdominal pain. NEUROLOGICAL: No headaches, no weakness, no numbness. HEMATOLOGICAL: Denies any bleeding or petechiae. GENITOURINARY: Denies any burning micturition, frequency, or urgency. MUSCULOSKELETAL/RHEUMATOLOGICAL: Denies any joint pain, swelling, or any muscle pain. ENDOCRINE: Denies any polyuria or polydipsia. PHYSICAL EXAMINATION: GENERAL: The patient is alert and oriented x3,. Well developed, well nourished. ill Appearance HEENT: Pupils are round and equally reacting to light. EOMI. No scleral icterus. No conjunctival pallor. Normocephalic, atraumatic. CARDIOVASCULAR: S1 and S2 present. No murmurs, rubs, or gallops. PULMONARY: Decreased breath sounds bilaterally, ABDOMEN: Soft, nontender, nondistended, normoactive bowel sounds. No palpable organomegaly. MUSCULOSKELETAL: No joint swelling or deformity. EXTREMITIES: No cyanosis, clubbing, or pedal edema. NEUROLOGICAL: Gross neurological examination did not reveal any focal deficits. SKIN: No rashes. Past Medical History Past Medical History: COPD, GERD/Reflux, Hyperlipidemia, Hypertension History of Any Multi-Drug Resistant Organisms: MRSA Date of last positivie culture/infection: 2008 MDRO Source:: Axilla, Cheek Past Surgical History: Back Surgery, Cholecystectomy, Heart Catheterization, Hernia Repair, Hysterectomy, Orthopedic Surgery Additional Past Surgical History / Comment(s): bilateral knee scope, left carpal tunnel, left elbow surgery, lumbar back surgery, hysterectomy due to dysfunctional uterine bleeding, colonoscopy in the past. Past Anesthesia/Blood Transfusion Reactions: No Reported Reaction Past Psychological History: Depression Smoking Status: Current every day smoker Past Alcohol Use History: None Reported Past Drug Use History: None Reported - Past Family History Mother Family Medical History: Cancer, COPD, Diabetes Mellitus Additional Family Medical History / Comment(s): Mother at age 73 with history of lung cancer and diabetes. Father Family Medical History: COPD, Diabetes Mellitus Additional Family Medical History / Comment(s): Father is alive at age 83 with history of diabetes mellitus with bilateral lower extremity amputations, coronary artery disease, heart failure, atrial fibrillation. Brother(s) Additional Family Medical History / Comment(s): Patient has 2 brothers and 2 sisters and she does not have any contact with them for more than 6 years. Daughter(s) Additional Family Medical History / Comment(s): Patient has 3 children. One at age 34 from heart problems or pneumonia. 1 has seizure disorder and blood cancer, one is healthy. Medications and Allergies Home Medications Medication Instructions Recorded Confirmed Type Aspirin [Adult Low Dose Aspirin EC] 81 mg PO DAILY 07/01/16 04/13/23 History ALPRAZolam [Xanax] 0.25 mg PO TID PRN 06/26/21 04/13/23 History DULoxetine HCL [Cymbalta] 30 mg PO DAILY 06/26/21 04/13/23 History DULoxetine HCL [Cymbalta] 60 mg PO HS 06/26/21 04/13/23 History Omeprazole 20 mg PO HS 06/26/21 04/13/23 History Albuterol Inhaler [Ventolin Hfa 2 puff INHALATION RT-QID #18 gm 04/13/23 Rx Inhaler] HYDROcodone/APAP 10-325MG [[place] 1 tab PO TID PRN 04/13/23 04/13/23 History 10-325] Ibuprofen [Motrin] 800 mg PO TID PRN 04/13/23 04/13/23 History predniSONE [Deltasone] 40 mg PO DAILY #8 tab 04/13/23 Rx Allergies Allergy/AdvReac Type Severity Reaction Status Date / Time sulfamethoxazole Allergy Rash/Hives Verified 04/13/23 15:22 [From ] trimethoprim [From ] Allergy Rash/Hives Verified 04/13/23 15:22 Physical Exam Vitals: Vital Signs Temp Pulse Resp BP Pulse Ox 04/13/23 20:22 92 19 144/106 93 L 04/13/23 19:40 89 04/13/23 19:36 98 04/13/23 19:22 88 19 150/113 92 L 04/13/23 18:16 99.1 F 91 20 156/90 93 L 04/13/23 17:40 83 L 04/13/23 16:01 92 04/13/23 15:56 84 20 108/75 04/13/23 15:42 92 04/13/23 14:45 22 04/13/23 14:21 99.4 F 102 H 22 142/83 93 L Intake and Output 04/13/23 04/13/23 04/13/23 06:59 14:59 22:59 Other: Weight 108.862 kg Results CBC & Chem 7: 04/14/23 07:15 04/13/23 14:40 Labs: Abnormal Lab Results - Last 24 Hours (Table) 04/13/23 04/13/23 Range/Units 14:40 14:40 Sodium 132 L (137-145) mmol/L Glucose 166 H (74-99) mg/dL AST 47 H (14-36) U/L Influenza Type A (PCR) Detected A (Not Detectd) Assessment and Plan Assessment: ASSESSMENT AND PLAN * Acute hypoxemia, with COPD exacerbation * influenza a viral infection * acute tracheobronchitis * history of hypertension * in regards to COPD exacerbation continue patient on breathing treatment, patient failed outpatient azithromycin treatment started on doxycycline, continue Mucinex, continue IV Solu-Medrol * in regards to influenza a viral infection, started on Tamiflu total 10 doses * in regards to tracheobronchitis continue Mucinex, continue breathing treatment continue IV Solu-Medrol * in regards to hypertension continue home regimen losartan * code status is full code Time with Patient: Greater than 30
[2023-04-14 13:24] LABS: Glucose,Whole Blood 201 mg/dL (70-110)
[2023-04-14] MEDS: HYDROcodone/APAP 10-325MG 1 EACH TAB PO PRN (16:25)
[2023-04-14 18:10] LABS: Glucose,Whole Blood 228 mg/dL (70-110)
[2023-04-14 21:48] LABS: Glucose,Whole Blood 242 mg/dL (70-110)
[2023-04-15] MEDS: BENZONATATE 100 MG CAP PO PRN (00:22)
[2023-04-15] MEDS: IPRATROPIUM-ALBUTEROL 3 ML NEB INHALATION PRN (00:38)
[2023-04-15 06:03] LABS: Glucose,Whole Blood 213 mg/dL (70-110)
--- NOTE | 2023-04-15 08:09 | P.PN ---
Subjective 66-year-old patient with past medical history significant for COPD, history of tobacco use, hypertension, hyperlipidemia, gastroesophageal reflux disease, previous history of cellulitis and MRSA infection presents to the emergency department with complains of shortness of breath. Patient states she was diagnosed with influenza a viral infection about 1 week ago and was placed on Z- Dwayne. Patient states his symptoms have been getting worse and she was short of breath as well as did not feel any improvement. Patient denies associated fever, chills however does complain of cough, nausea, vomiting diarrhea and abdominal discomfort. Workup initiated in ER included serum chemistry which showed sodium 132 potassium 4.3 glucose 166 BUN 10 creatinine 0.58. CBC showed WBC 6.3 hemoglobin 15.3 hematocrit 45 platelet 243, INR of 0.9. Chest x-ray obtained in ER negative for acute intrathoracic process however findings consistent with bronchitis Patient was noted to have hypoxia on ambulation while in ER hence he was admitted for close monitoring secondary to sequel of influenza infection and bronchospasm 04/15/2023 This is a pleasant 68 years old female who presents with dyspnea 1 week after she was diagnosed with influenza A and no improvement as an outpatient It with acute COPD exacerbation secondary to influenza A infection and acute hypoxic respiratory failure Patient graft and doxycycline, IV Solu-Medrol 60 mg and Tamiflu Patient says that her breathing is somewhat better today but she still coughing a lot. No chest pain. Currently she is on 4 L oxygen saturating 97%. She is not on home oxygen, oxygen and she does not follow up with bottle carrier. 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 Review of systems CONSTITUTIONAL: No fever, no malaise, no fatigue. HEENT: No recent visual problems or hearing problems. Denied any sore throat. CARDIOVASCULAR: No orthopnea, PND, no palpitations, no syncope. PULMONARY: No chest wall tenderness h, no hemoptysis. GASTROINTESTINAL: No diarrhea, no nausea, no vomiting, no abdominal pain. Normoactive bowel sounds. NEUROLOGICAL: No headaches, no weakness, no numbness. Active Medications Generic Name Dose Route Start Last Admin Trade Name Freq PRN Reason Stop Dose Admin Acetaminophen 650 mg 04/13/23 19:25 04/14/23 13:29 Acetaminophen Tab 325 Mg Tab PO 650 mg Q4HR PRN Administration Mild Pain or Fever > 100.5 Hydrocodone Bitart/Acetaminophen 1 each 04/13/23 19:23 04/15/23 00:22 Hydrocodone/Apap 10-325mg 1 Each Tab PO 1 each TID PRN Administration Pain Albuterol/Ipratropium 3 ml 04/13/23 20:00 04/15/23 07:39 Ipratropium-Albuterol 3 Ml Neb INHALATION 3 ml RT-QID CIELO Administration Albuterol/Ipratropium 3 ml 04/13/23 17:45 04/15/23 00:38 Ipratropium-Albuterol 3 Ml Neb INHALATION 3 ml RT-Q2H PRN Administration Shortness Of Breath Or Wheezing Alprazolam 0.25 mg 04/13/23 19:23 Alprazolam 0.25 Mg Tab PO TID PRN Anxiety Aspirin 81 mg 04/14/23 09:00 04/14/23 09:29 Aspirin 81 Mg PO 81 mg DAILY CIELO Administration Benzonatate 100 mg 04/13/23 19:25 04/15/23 00:22 Benzonatate 100 Mg Cap PO 100 mg TID PRN Administration Cough Budesonide/Formoterol Fumarate 2 puff 04/14/23 08:00 04/15/23 07:39 Symbicort 160-4.5 Mcg Inhaler INHALATION 2 puff RT-BID CIELO Administration Doxycycline Monohydrate 100 mg 04/14/23 09:00 04/14/23 22:39 Doxycycline 100 Mg Cap PO 100 mg BID CIELO Administration Protocol Duloxetine HCl 30 mg 04/14/23 09:00 04/14/23 09:29 Duloxetine Hcl 30 Mg Capsule. PO 30 mg DAILY CIELO Administration Duloxetine HCl 60 mg 04/13/23 21:00 04/14/23 22:39 Duloxetine Hcl 60 Mg Capsule. PO 60 mg HS CIELO Administration Guaifenesin 600 mg 04/13/23 21:00 04/14/23 22:39 Guaifenesin 600 Mg Tablet.Er PO 600 mg Q12HR CIELO Administration Insulin Aspart 0 unit 04/14/23 00:09 04/15/23 06:08 Insulin Aspart (Novolog) 100 Unit/Ml Vial SQ 4 unit ACHS CIELO Administration Protocol Losartan Potassium 50 mg 04/13/23 23:45 04/14/23 09:29 Losartan 50 Mg Tab PO 50 mg DAILY CIELO Administration Methylprednisolone Sodium Succinate 60 mg 04/13/23 22:00 04/15/23 04:25 Methylprednisolone Sod Succi 125 Mg/2 Ml Vial IV 60 mg Q6H CIELO Administration Naloxone HCl 0.2 mg 04/13/23 17:45 Naloxone 0.4 Mg/Ml 1 Ml Vial IVP Q2M PRN Opioid Reversal Oseltamivir Phosphate 75 mg 04/14/23 04:00 04/15/23 04:25 Oseltamivir 75 Mg Cap PO 04/18/23 16:01 75 mg Q12H CIELO Administration Protocol Pantoprazole Sodium 40 mg 04/13/23 21:00 04/14/23 22:39 Pantoprazole 40 Mg Tablet PO 40 mg HS CIELO Administration Objective - Vital Signs Vital signs: Vital Signs Temp 98.6 F 04/15/23 00:22 Pulse 103 H 04/15/23 07:51 Resp 28 H 04/15/23 00:22 BP 148/89 04/15/23 00:22 Pulse Ox 97 04/15/23 00:22 FiO2 Intake & Output 04/14/23 04/15/23 04/15/23 18:59 06:59 18:59 Output Total 300 Balance -300 Output: Urine 300 Other: # Voids 1 - Exam GENERAL: The patient is alert and oriented x3, not in any acute distress. Well developed, well nourished. HEENT: Pupils are round and equally reacting to light. EOMI. No scleral icterus. No conjunctival pallor. Normocephalic, atraumatic. No pharyngeal erythema. No thyromegaly. CARDIOVASCULAR: S1 and S2 present. No murmurs, rubs, or gallops. -PULMONARY: Chest is clear to auscultation, no crackles. Mild expiratory wheezing ABDOMEN: Soft, nontender, nondistended, normoactive bowel sounds. No palpable organomegaly. MUSCULOSKELETAL: No joint swelling or deformity. EXTREMITIES: No cyanosis, clubbing, or pedal edema. NEUROLOGICAL: Gross neurological examination did not reveal any focal deficits. SKIN: No rashes. no petechiae. - Labs CBC & Chem 7: 04/14/23 07:15 04/13/23 14:40 Labs: Abnormal Lab Results - Last 24 Hours (Table) 04/14/23 04/14/23 04/14/23 Range/Units 07:15 07:15 09:31 WBC 3.06 L (4.50-10.00) X 10*3/uL RBC 5.40 H (4.10-5.20) X 10*6/uL Hgb 15.6 H (12.0-15.0) g/dL Hct 48.3 H (37.2-46.3) % POC Glucose (mg/dL) 203 H (70-110) mg/dL C-Reactive Protein 1.70 H (0.00-0.80) mg/dL 04/14/23 04/14/23 04/14/23 Range/Units 13:22 18:08 21:45 WBC (4.50-10.00) X 10*3/uL RBC (4.10-5.20) X 10*6/uL Hgb (12.0-15.0) g/dL Hct (37.2-46.3) % POC Glucose (mg/dL) 201 H 228 H 242 H (70-110) mg/dL C-Reactive Protein (0.00-0.80) mg/dL 04/15/23 Range/Units 06:01 WBC (4.50-10.00) X 10*3/uL RBC (4.10-5.20) X 10*6/uL Hgb (12.0-15.0) g/dL Hct (37.2-46.3) % POC Glucose (mg/dL) 213 H (70-110) mg/dL C-Reactive Protein (0.00-0.80) mg/dL Assessment and Plan Assessment: Acute hypoxemia, secondary to acute COPD exacerbation influenza a viral infection, with acute tracheobronchitis hypertension Chronic back pain History of GERD Hyperlipidemia Plan: Continue with doxycycline, IV Solu-Medrol and Tamiflu Pulmonary team consult Labs and medication were reviewed.. Continue same treatment. Continue with symptomatic treatment. Resume home medication. Monitor labs and vitals. DVT and GI prophylaxis. Further recommendations as per clinical course of the patient DVT prophylaxis: Subcutaneous heparin GI Prophylaxis: Pepcid Prognosis is guarded
[2023-04-15] MEDS: HEPARIN SODIUM,PORCINE 5,000 UNIT/ML 1 ML VIAL SQ SCH (08:37)
[2023-04-15 11:18] LABS: BUN/Creat Ratio 24.25 Ratio (12.00-20.00); Blood Urea Nitrogen 19.4 mg/dL (9.0-27.0); Calcium 9.4 mg/dL (8.7-10.3); Carbon Dioxide 23.6 mmol/L (21.6-31.8); Chloride 97 mmol/L (96-109); Glucose 202 mg/dL (70-110); Potassium 4.3 mmol/L (3.5-5.5); Sodium 133 mmol/L (135-145)
[2023-04-15 12:11] LABS: Glucose,Whole Blood 349 mg/dL (70-110)
[2023-04-15 12:37] LABS: HCT 47.4 % (37.2-46.3); HGB 15.8 g/dL (12.0-15.0); MCH 30.3 pg (27.0-32.0); MCHC 33.3 g/dL (32.0-37.0); Mean Platelet Volume 9.9 FL (9.5-12.2); NRBC Per 100 WBC 0 X 10*3/uL (0.00-0.01); Platelet Count 282 X 10*3/uL (140-440); RBC 5.21 X 10*6/uL (4.10-5.20); RDW 14.1 % (11.5-14.5); WBC 8.07 X 10*3/uL (4.50-10.00)
[2023-04-15 18:55] LABS: Glucose,Whole Blood 290 mg/dL (70-110)
--- NOTE | 2023-04-15 19:25 | P.PN ---
Subjective Progress Note Date: 04/15/23 This is a 68-year-old female patient, a chronic smoker with known history of COPD who smokes around 1 pack of cigarettes a day. The patient coming to the hospital because of increased dyspnea cough chest tightness and wheezing consistent with COPD exacerbation. The same time the patient was feeling weak and tired and having body aches and feeling feverish. In the emergency, the patient was found to be history of exacerbation. She also tested positive for influenza and the patient has an acute influenza A syndrome. Chest x-ray is not showing any acute airspace disease or consolidation. There is some increased interstitial markings bilaterally. The patient is currently on oxygen and she is on 2 L with a pulse ox of 93%. She denies being on O2 on outpatient basis. Her white cell count at 6.3 with a hemoglobin 15.3. Coagulation profile is within normal with a BUN of 10 and a creatinine of 0.58 and a sodium level of 132 and a potassium level of 4.3. Troponins are negative. The patient has no altered mentation. No pleurisy or hemoptysis. No nausea vomiting or diarrhea. She is nonambulatory at the patient has chronic back issues and neuropathy which has left the patient debilitated and nonambulatory for several years. She lives at home with family. On today's evaluation of 04/15/2023, the patient is feeling better and she is slightly less short of breath compared to yesterday. As mentioned earlier, the patient had an acute influenza syndromes, influenza infection and COPD exacerbation. She remains on Tamiflu. She remains on bronchodilators. She also is on steroids for now. The white cell count is at 8 with a hemoglobin 15.8 and a platelet count of 282. BUN is at 19 with a creatinine of 0.8 and a sodium level at 133. Her oxygen requirements are still at 2 L with a pulse ox of 95%. No altered mentation. No nausea or vomiting. No other significant events overnight. Medication were essentially reviewed. The patient is on insulin sliding scale coverage for blood sugar control. Objective - Vital Signs Vital signs: Vital Signs Temp 98.5 F 04/15/23 08:00 Pulse 98 04/15/23 08:00 Resp 18 04/15/23 08:00 BP 144/75 04/15/23 08:00 Pulse Ox 91 L 04/15/23 08:15 FiO2 86 04/15/23 08:00 Intake & Output 04/14/23 04/15/23 04/15/23 18:59 06:59 18:59 Output Total 300 Balance -300 Output: Urine 300 Other: Voiding Method External Catheter # Voids 1 - Exam GENERAL EXAM: Alert, 68-year-old white female, morbidly obese and disheveled,, comfortable in no apparent distress. The patient is currently on 2 L of oxygen by nasal cannula HEAD: Normocephalic and atraumatic EYES: Normal reaction of pupils, equal size. NOSE: Clear with pink turbinates. THROAT: No erythema or exudates. NECK: No masses, no JVD. CHEST: No chest wall deformity. LUNGS: Equal air entry with expiratory wheezes and rhonchi with rales. No conversational dyspnea or accessory muscle use at rest.. CVS: S1 and S2 normal with no audible murmur, regular rhythm. No extra heart sounds ABDOMEN: No hepatosplenomegaly, active bowel sounds, no guarding or rigidity. There is an implanted device in the left upper abdomen SPINE: No scoliosis or deformity SKIN: No rashes CENTRAL NERVOUS SYSTEM: No focal deficits, tone is normal in all 4 extremities. The patient has been chronically nonambulatory. EXTREMITIES: Mild nonpitting bilateral lower extremity edema with chronic venous stasis changes. No clubbing, or cyanosis. Peripheral pulses are intact. Chronic neuropathic changes lower extremities bilaterally and the patient has muscle atrophy and contractures. She is nonambulatory at this point in time. - Labs CBC & Chem 7: 04/15/23 07:59 04/15/23 07:59 Labs: Abnormal Lab Results - Last 24 Hours (Table) 04/14/23 04/14/23 04/14/23 Range/Units 07:15 07:15 13:22 WBC 3.06 L (4.50-10.00) X 10*3/uL RBC 5.40 H (4.10-5.20) X 10*6/uL Hgb 15.6 H (12.0-15.0) g/dL Hct 48.3 H (37.2-46.3) % POC Glucose (mg/dL) 201 H (70-110) mg/dL C-Reactive Protein 1.70 H (0.00-0.80) mg/dL 04/14/23 04/14/2324 Range/Units 18:08 21:45 06:01 WBC (4.50-10.00) X 10*3/uL RBC (4.10-5.20) X 10*6/uL Hgb (12.0-15.0) g/dL Hct (37.2-46.3) % POC Glucose (mg/dL) 228 H 242 H 213 H (70-110) mg/dL C-Reactive Protein (0.00-0.80) mg/dL Assessment and Plan Plan: Acute COPD exacerbation, secondary to acute influenza A infection. No evidence of any pneumonia or airspace disease or consolidation on the chest x-ray findings. Acute hypoxemic respiratory failure, secondary to above, currently on 2 L of oxygen by nasal cannula Acute influenza A syndrome. The patient has been exposed to family members with influenza as her 33-year-old son had the flu. History of COPD, not oxygen dependent at baseline Smoker, 1.5 PPD Hypertension History of hyperlipidemia Chronic ongoing tobacco dependence, currently smoking 1.5 packs/day Chronic back pain, with implanted pain pump, nonfunctional at this point and she is on [place] GERD, without esophagitis Morbid obesity, with a BMI of 43.9 kg/m History of neuropathy and the patient is nonambulatory at this point. Plan: Clinically slightly improved compared to yesterday. As such, we will continue the same treatment Titrate oxygen flow to maintain saturation above 90%, currently on 2 L of O2 nasal cannula Start patient on combination of bronchodilators, Symbicort inhaler Continue Solu-Medrol at a dose of 60 mg every 6 hours to monitor the blood sugars Patient was started on Tamiflu 75 mg p.o. twice a day Also, empirically covered on doxycycline As needed Tessalon Perles for antitussive Protonix for GI prophylaxis Smoking cessation counseling Resume home medications We will continue to follow
[2023-04-15 21:02] LABS: Glucose,Whole Blood 270 mg/dL (70-110)
[2023-04-16 05:34] LABS: African American GFR (CKD) >90 (>60 ml/min/1.73 sqM); Non-African American GFR(CKD) >90 (>60 ml/min/1.73 sqM)
[2023-04-16 05:51] LABS: Glucose,Whole Blood 212 mg/dL (70-110)
[2023-04-16 11:58] LABS: Glucose,Whole Blood 226 mg/dL (70-110)
--- NOTE | 2023-04-16 16:41 | P.PN ---
Subjective Progress Note Date: 04/16/23 This is a 68-year-old female patient, a chronic smoker with known history of COPD who smokes around 1 pack of cigarettes a day. The patient coming to the hospital because of increased dyspnea cough chest tightness and wheezing consistent with COPD exacerbation. The same time the patient was feeling weak and tired and having body aches and feeling feverish. In the emergency, the patient was found to be history of exacerbation. She also tested positive for influenza and the patient has an acute influenza A syndrome. Chest x-ray is not showing any acute airspace disease or consolidation. There is some increased interstitial markings bilaterally. The patient is currently on oxygen and she is on 2 L with a pulse ox of 93%. She denies being on O2 on outpatient basis. Her white cell count at 6.3 with a hemoglobin 15.3. Coagulation profile is within normal with a BUN of 10 and a creatinine of 0.58 and a sodium level of 132 and a potassium level of 4.3. Troponins are negative. The patient has no altered mentation. No pleurisy or hemoptysis. No nausea vomiting or diarrhea. She is nonambulatory at the patient has chronic back issues and neuropathy which has left the patient debilitated and nonambulatory for several years. She lives at home with family. On today's evaluation of 04/15/2023, the patient is feeling better and she is slightly less short of breath compared to yesterday. As mentioned earlier, the patient had an acute influenza syndromes, influenza infection and COPD exacerbation. She remains on Tamiflu. She remains on bronchodilators. She also is on steroids for now. The white cell count is at 8 with a hemoglobin 15.8 and a platelet count of 282. BUN is at 19 with a creatinine of 0.8 and a sodium level at 133. Her oxygen requirements are still at 2 L with a pulse ox of 95%. No altered mentation. No nausea or vomiting. No other significant events overnight. Medication were essentially reviewed. The patient is on insulin sliding scale coverage for blood sugar control. On today's evaluation of 04/16/2023, the patient is doing well. Less short of breath compared to yesterday. Cough and congestion wheezing is improved considerably. No other new complaints otherwise for now. Remains on Tamiflu. Remains on IV Solu-Medrol 60 mg every 6 hours. Remains on DuoNeb nebulized treatments [id number]. She is also Symbicort as maintenance. Labs from today show a creatinine of 0.65. Blood sugars at 226. No altered mentation. Oxygen requirements are in the order of 3 L with a pulse ox of 91%. She is morbidly obese with a BMI of 43.9. She is a chronic smoker. She has underlying COPD. Objective - Vital Signs Vital signs: Vital Signs Temp 98.1 F 04/16/23 07:16 Pulse 104 H 04/16/23 08:31 Resp 19 04/16/23 07:16 BP 158/88 04/16/23 08:13 Pulse Ox 92 L 04/16/23 08:22 FiO2 86 04/15/23 08:00 Intake & Output 04/15/23 04/16/23 04/16/23 18:59 06:59 18:59 Output Total 800 450 Balance -800 -450 Weight 108.862 kg Output: Urine 800 450 Other: Voiding Method External Catheter External Catheter External Catheter - Exam GENERAL EXAM: Alert, 68-year-old white female, morbidly obese and disheveled,, comfortable in no apparent distress. The patient is currently on 2 L of oxygen by nasal cannula HEAD: Normocephalic and atraumatic EYES: Normal reaction of pupils, equal size. NOSE: Clear with pink turbinates. THROAT: No erythema or exudates. NECK: No masses, no JVD. CHEST: No chest wall deformity. LUNGS: Equal air entry with expiratory wheezes and rhonchi with rales. No conversational dyspnea or accessory muscle use at rest.. CVS: S1 and S2 normal with no audible murmur, regular rhythm. No extra heart sounds ABDOMEN: No hepatosplenomegaly, active bowel sounds, no guarding or rigidity. There is an implanted device in the left upper abdomen SPINE: No scoliosis or deformity SKIN: No rashes CENTRAL NERVOUS SYSTEM: No focal deficits, tone is normal in all 4 extremities. The patient has been chronically nonambulatory. EXTREMITIES: Mild nonpitting bilateral lower extremity edema with chronic venous stasis changes. No clubbing, or cyanosis. Peripheral pulses are intact. Chronic neuropathic changes lower extremities bilaterally and the patient has muscle atrophy and contractures. She is nonambulatory at this point in time. - Labs CBC & Chem 7: 04/15/23 07:59 04/16/23 04:25 Labs: Abnormal Lab Results - Last 24 Hours (Table) 04/15/23 04/15/23 04/15/23 Range/Units 07:59 07:59 12:09 RBC 5.21 H (4.10-5.20) X 10*6/uL Hgb 15.8 H (12.0-15.0) g/dL Hct 47.4 H (37.2-46.3) % Sodium 133 L (135-145) mmol/L Anion Gap 12.40 H (4.00-12.00) mmol/L BUN/Creatinine Ratio 24.25 H (12.00-20.00) Ratio Glucose 202 H (70-110) mg/dL POC Glucose (mg/dL) 349 H (70-110) mg/dL 04/15/23 04/15/23 04/16/23 Range/Units 18:53 21:01 05:50 RBC (4.10-5.20) X 10*6/uL Hgb (12.0-15.0) g/dL Hct (37.2-46.3) % Sodium (135-145) mmol/L Anion Gap (4.00-12.00) mmol/L BUN/Creatinine Ratio (12.00-20.00) Ratio Glucose (70-110) mg/dL POC Glucose (mg/dL) 290 H 270 H 212 H (70-110) mg/dL Assessment and Plan Plan: Acute COPD exacerbation, secondary to acute influenza A infection. No evidence of any pneumonia or airspace disease or consolidation on the chest x-ray findings. Acute hypoxemic respiratory failure, secondary to above, currently on 3 L of oxygen by nasal cannula Acute influenza A syndrome. The patient has been exposed to family members with influenza as her 33-year-old son had the flu. The patient remains on Tamiflu and steroids History of COPD, not oxygen dependent at baseline Smoker, 1.5 PPD Hypertension History of hyperlipidemia Chronic ongoing tobacco dependence, currently smoking 1.5 packs/day Chronic back pain, with implanted pain pump, nonfunctional at this point and she is on [place] GERD, without esophagitis Morbid obesity, with a BMI of 43.9 kg/m History of neuropathy and the patient is nonambulatory at this point. Plan: Clinically, the patient continues to improve Titrate oxygen flow to maintain saturation above 90%, currently on 3 L O2 nasal cannula Start patient on combination of bronchodilators, Symbicort inhaler Discontinued IV Solu-Medrol switch the patient to prednisone burst taper Patient was started on Tamiflu 75 mg p.o. twice a day Also, empirically covered on doxycycline As needed Teslizon Perldae for antitussive Protonix for GI prophylaxis Smoking cessation counseling Resume home medications Possible home today or tomorrow. This will be discussed with the medical team.
[2023-04-16 17:30] LABS: Glucose,Whole Blood 260 mg/dL (70-110)
[2023-04-16 20:46] LABS: Glucose,Whole Blood 265 mg/dL (70-110)
--- NOTE | 2023-04-16 20:50 | P.PN ---
Subjective 66-year-old patient with past medical history significant for COPD, history of tobacco use, hypertension, hyperlipidemia, gastroesophageal reflux disease, previous history of cellulitis and MRSA infection presents to the emergency department with complains of shortness of breath. Patient states she was diagnosed with influenza a viral infection about 1 week ago and was placed on Z- Dwayne. Patient states his symptoms have been getting worse and she was short of breath as well as did not feel any improvement. Patient denies associated fever, chills however does complain of cough, nausea, vomiting diarrhea and abdominal discomfort. Workup initiated in ER included serum chemistry which showed sodium 132 potassium 4.3 glucose 166 BUN 10 creatinine 0.58. CBC showed WBC 6.3 hemoglobin 15.3 hematocrit 45 platelet 243, INR of 0.9. Chest x-ray obtained in ER negative for acute intrathoracic process however findings consistent with bronchitis Patient was noted to have hypoxia on ambulation while in ER hence he was admitted for close monitoring secondary to sequel of influenza infection and bronchospasm 04/15/2023 This is a pleasant 68 years old female who presents with dyspnea 1 week after she was diagnosed with influenza A and no improvement as an outpatient It with acute COPD exacerbation secondary to influenza A infection and acute hypoxic respiratory failure Patient graft and doxycycline, IV Solu-Medrol 60 mg and Tamiflu Patient says that her breathing is somewhat better today but she still coughing a lot. No chest pain. Currently she is on 4 L oxygen saturating 97%. 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 04/16/2023 pt breathing is improving no chest pain she is still mildly tachycardic, no fever she does not qualify for home oxygen , it was checked with staff and she was saturation at 91% on room air with exertion she remains on tamiflu, doxycycline and solumedrol 60 mg possible dc in 24-48 hr Objective - Vital Signs Vital signs: Vital Signs Temp 98.1 F 04/16/23 13:10 Pulse 104 H 04/16/23 16:52 Resp 19 04/16/23 13:10 BP 130/82 04/16/23 13:10 Pulse Ox 94 L 04/16/23 13:56 FiO2 86 04/15/23 08:00 Intake & Output 04/16/23 04/16/23 04/17/23 06:59 18:59 06:59 Output Total 450 Balance -450 Weight 108.862 kg Output: Urine 450 Other: Voiding Method External Catheter External Catheter # Voids 1 - Exam GENERAL: The patient is alert and oriented x3, not in any acute distress. Well developed, well nourished. HEENT: Pupils are round and equally reacting to light. EOMI. No scleral icterus. No conjunctival pallor. Normocephalic, atraumatic. No pharyngeal erythema. No thyromegaly. CARDIOVASCULAR: S1 and S2 present. No murmurs, rubs, or gallops. -PULMONARY: Chest is clear to auscultation, no crackles. Mild expiratory wheezing ABDOMEN: Soft, nontender, nondistended, normoactive bowel sounds. No palpable organomegaly. MUSCULOSKELETAL: No joint swelling or deformity. EXTREMITIES: No cyanosis, clubbing, or pedal edema. NEUROLOGICAL: Gross neurological examination did not reveal any focal deficits. SKIN: No rashes. no petechiae. - Labs CBC & Chem 7: 04/15/23 07:59 04/16/23 04:25 Labs: Abnormal Lab Results - Last 24 Hours (Table) 04/15/23 04/16/23 04/16/23 Range/Units 21:01 05:50 11:57 POC Glucose (mg/dL) 270 H 212 H 226 H (70-110) mg/dL 04/16/23 04/16/23 Range/Units 17:29 20:44 POC Glucose (mg/dL) 260 H 265 H (70-110) mg/dL Assessment and Plan Assessment: Acute hypoxemia, secondary to acute COPD exacerbation influenza a viral infection, with acute tracheobronchitis hypertension Chronic back pain History of GERD Hyperlipidemia Plan: Continue with doxycycline, IV Solu-Medrol and Tamiflu Pulmonary team consult Labs and medication were reviewed.. Continue same treatment. Continue with symptomatic treatment. Resume home medication. Monitor labs and vitals. DVT and GI prophylaxis. Further recommendations as per clinical course of the patient DVT prophylaxis: Subcutaneous heparin GI Prophylaxis: Pepcid Prognosis is guarded
[2023-04-17 05:47] LABS: Glucose,Whole Blood 165 mg/dL (70-110)
[2023-04-17] MEDS: predniSONE 20 MG TAB PO SCH (09:08)
[2023-04-17 11:26] LABS: Glucose,Whole Blood 173 mg/dL (70-110)
[2023-04-17 15:21] VITALS: BP 156/82; PULSE 116; RESP 17; TEMP 97.4
--- NOTE | 2023-04-17 16:30 | P.PN ---
Subjective Progress Note Date: 04/17/23 This is a 68-year-old female patient, a chronic smoker with known history of COPD who smokes around 1 pack of cigarettes a day. The patient coming to the hospital because of increased dyspnea cough chest tightness and wheezing consistent with COPD exacerbation. The same time the patient was feeling weak and tired and having body aches and feeling feverish. In the emergency, the patient was found to be history of exacerbation. She also tested positive for influenza and the patient has an acute influenza A syndrome. Chest x-ray is not showing any acute airspace disease or consolidation. There is some increased interstitial markings bilaterally. The patient is currently on oxygen and she is on 2 L with a pulse ox of 93%. She denies being on O2 on outpatient basis. Her white cell count at 6.3 with a hemoglobin 15.3. Coagulation profile is within normal with a BUN of 10 and a creatinine of 0.58 and a sodium level of 132 and a potassium level of 4.3. Troponins are negative. The patient has no altered mentation. No pleurisy or hemoptysis. No nausea vomiting or diarrhea. She is nonambulatory at the patient has chronic back issues and neuropathy which has left the patient debilitated and nonambulatory for several years. She lives at home with family. On today's evaluation of 04/15/2023, the patient is feeling better and she is slightly less short of breath compared to yesterday. As mentioned earlier, the patient had an acute influenza syndromes, influenza infection and COPD exacerbation. She remains on Tamiflu. She remains on bronchodilators. She also is on steroids for now. The white cell count is at 8 with a hemoglobin 15.8 and a platelet count of 282. BUN is at 19 with a creatinine of 0.8 and a sodium level at 133. Her oxygen requirements are still at 2 L with a pulse ox of 95%. No altered mentation. No nausea or vomiting. No other significant events overnight. Medication were essentially reviewed. The patient is on insulin sliding scale coverage for blood sugar control. On today's evaluation of 04/16/2023, the patient is doing well. Less short of breath compared to yesterday. Cough and congestion wheezing is improved considerably. No other new complaints otherwise for now. Remains on Tamiflu. Remains on IV Solu-Medrol 60 mg every 6 hours. Remains on DuoNeb nebulized treatments [id number]. She is also Symbicort as maintenance. Labs from today show a creatinine of 0.65. Blood sugars at 226. No altered mentation. Oxygen requirements are in the order of 3 L with a pulse ox of 91%. She is morbidly obese with a BMI of 43.9. She is a chronic smoker. She has underlying COPD. 04/17/2023, no new complaints the patient is doing well. The patient is completing course of Tamiflu. The patient on a prednisone burst taper that will be started today. IV centimeter will be discontinued.Remains on DuoNeb updrafts. The patient is currently on room air oxygen. The patient is afebrile. No significant respiratory difficulties. Objective - Vital Signs Vital signs: Vital Signs Temp 98.1 F 04/17/23 07:20 Pulse 108 H 04/17/23 09:12 Resp 18 04/17/23 07:20 BP 150/98 04/17/23 07:20 Pulse Ox 98 04/17/23 09:01 FiO2 86 04/15/23 08:00 Intake & Output 04/16/23 04/17/23 04/17/23 18:59 06:59 18:59 Output Total 1250 Balance -1250 Output: Urine 1250 Other: Voiding Method External Catheter External Catheter # Voids 1 - Exam GENERAL EXAM: Alert, 68-year-old white female, morbidly obese and disheveled,, comfortable in no apparent distress. The patient is currently on room air oxygen HEAD: Normocephalic and atraumatic EYES: Normal reaction of pupils, equal size. NOSE: Clear with pink turbinates. THROAT: No erythema or exudates. NECK: No masses, no JVD. CHEST: No chest wall deformity. LUNGS: Equal air entry with expiratory wheezes and rhonchi with rales. No conversational dyspnea or accessory muscle use at rest.. CVS: S1 and S2 normal with no audible murmur, regular rhythm. No extra heart sounds ABDOMEN: No hepatosplenomegaly, active bowel sounds, no guarding or rigidity. There is an implanted device in the left upper abdomen SPINE: No scoliosis or deformity SKIN: No rashes CENTRAL NERVOUS SYSTEM: No focal deficits, tone is normal in all 4 extremities. The patient has been chronically nonambulatory. EXTREMITIES: Mild nonpitting bilateral lower extremity edema with chronic venous stasis changes. No clubbing, or cyanosis. Peripheral pulses are intact. Chronic neuropathic changes lower extremities bilaterally and the patient has muscle atrophy and contractures. She is nonambulatory at this point in time. - Labs CBC & Chem 7: 04/15/23 07:59 04/16/23 04:25 Labs: Abnormal Lab Results - Last 24 Hours (Table) 04/16/23 04/16/23 04/16/23 Range/Units 11:57 17:29 20:44 POC Glucose (mg/dL) 226 H 260 H 265 H (70-110) mg/dL 04/17/23 Range/Units 05:46 POC Glucose (mg/dL) 165 H (70-110) mg/dL Assessment and Plan Plan: Acute COPD exacerbation, secondary to acute influenza A infection. No evidence of any pneumonia or airspace disease or consolidation on the chest x-ray findings., Improved Acute hypoxemic respiratory failure, secondary to above, currently on room air oxygen Acute influenza A syndrome. The patient has been exposed to family members with influenza as her 33-year-old son had the flu. The patient remains on Tamiflu and steroids, clinically improved History of COPD, not oxygen dependent at baseline Smoker, 1.5 PPD Hypertension History of hyperlipidemia Chronic ongoing tobacco dependence, currently smoking 1.5 packs/day Chronic back pain, with implanted pain pump, nonfunctional at this point and she is on [place] GERD, without esophagitis Morbid obesity, with a BMI of 43.9 kg/m History of neuropathy and the patient is nonambulatory at this point. Plan: Clinically, the patient continues to improve Patient has been titrated down to room air oxygen Start patient on combination of bronchodilators, Symbicort inhaler Prednisone burst taper Patient was started on Tamiflu 75 mg p.o. twice a day and this course will be completed Tessalon Marcus for antitussive Protonix for GI prophylaxis Smoking cessation counseling Resume home medications Consider home discharge today
--- NOTE | 2023-04-17 21:53 | P.DS ---
Providers Date of admission: 04/13/23 17:47 Attending physician: Karon Carlson Consults: 04/13/23 19:25 Consult Physician Routine Consulting Provider: Jessy Hanna Consult Reason/Comments: COPD exacerbation post influenza a Do you want consulting provider notified?: Yes Primary care physician: Dwayne Holloway Hospital Course: Diagnoses: Acute hypoxemia, secondary to acute COPD exacerbation influenza a viral infection, with acute tracheobronchitis hypertension Chronic back pain History of GERD Hyperlipidemia Hospital course: 66-year-old patient with past medical history significant for COPD, history of tobacco use, hypertension, hyperlipidemia, gastroesophageal reflux disease, previous history of cellulitis and MRSA infection presents to the emergency department with complains of shortness of breath. Was found to have influenza A when tested positive, acute COPD exacerbation and acute hypoxia. Pulmonary team are following closely. Patient was placed on doxycycline, Tamiflu and IV Solu-Medrol Patient showed interval improvement Oxygenation is improved and patient does not qualify for home oxygen. Patient denies chest pain or significant dyspnea upon discharge. No other new complaint. Patient is asking to be discharged home today. Patient was cleared for discharge by pulmonary team. Patient will be discharged on tapered prednisone, few more days of doxycycline and Tamiflu Problems and management plan were discussed with the patient and he verbalized understanding and acceptance Patient was found stable and can be discharged home in guarded prognosis however he needs follow-up as an outpatient. Patient was instructed to follow up with PCP Dr. Mcadams within one week and patient agrees Patient was instructed to follow-up with gas turbine powerplant mechanic Dr. Hanna in 2-3 weeks and she agrees Physical exam Gen: patient is a AAOx3, no distress CVS: S1-S2, RRR, no murmur Lungs: B/L CTA, no wheezing Abdomen: soft, no distention, no tenderness, positive bowel sounds Extremity: no leg edema or induration Time spent more than 35 minutes Patient Condition at Discharge: Good Plan - Discharge Summary Discharge Rx Participant: No New Discharge Prescriptions: New Albuterol Inhaler [Ventolin Hfa Inhaler] 2 puff INHALATION RT-QID #18 gm Doxycycline [Vibramycin] 100 mg PO BID 2 Days #3 cap Losartan [Cozaar] 50 mg PO DAILY #30 tab predniSONE 10 mg PO DIRECTED #40 tab Oseltamivir [Tamiflu] 75 mg PO Q12H 2 Days #3 cap Continue Aspirin [Adult Low Dose Aspirin EC] 81 mg PO DAILY DULoxetine HCL [Cymbalta] 60 mg PO HS Omeprazole 20 mg PO HS DULoxetine HCL [Cymbalta] 30 mg PO DAILY HYDROcodone/APAP 10-325MG [[place] 10-325] 1 tab PO TID PRN PRN Reason: Pain No Action ALPRAZolam [Xanax] 0.25 mg PO TID PRN PRN Reason: Anxiety Ibuprofen [Motrin] 800 mg PO TID PRN PRN Reason: Pain Discharge Medication List Aspirin [Adult Low Dose Aspirin EC] 81 mg PO DAILY 07/01/16 [History] ALPRAZolam [Xanax] 0.25 mg PO TID PRN 06/26/21 [History] DULoxetine HCL [Cymbalta] 30 mg PO DAILY 06/26/21 [History] DULoxetine HCL [Cymbalta] 60 mg PO HS 06/26/21 [History] Omeprazole 20 mg PO HS 06/26/21 [History] Albuterol Inhaler [Ventolin Hfa Inhaler] 2 puff INHALATION RT-QID #18 gm 03/20 08/09 [Rx] HYDROcodone/APAP 10-325MG [[place] 10-325] 1 tab PO TID PRN 04/13/23 [History] Ibuprofen [Motrin] 800 mg PO TID PRN 04/13/23 [History] Losartan [Cozaar] 50 mg PO DAILY #30 tab 04/16/23 [Rx] predniSONE 10 mg PO DIRECTED #40 tab 04/16/23 [Rx] Doxycycline [Vibramycin] 100 mg PO BID 2 Days #3 cap 04/17/23 [Rx] Oseltamivir [Tamiflu] 75 mg PO Q12H 2 Days #3 cap 04/17/23 [Rx] Follow up Appointment(s)/Referral(s): [facility], [NON-STAFF] - As Needed Dwayne Holloway [Primary Care Provider] - 04/22/23 1:00 pm Jessy Hanna MD [STAFF PHYSICIAN] - 05/18/23 1:00 pm (lung doctor. Office has patient on cancelation list.) Patient Instructions/Handouts: Influenza (ED), Bronchospasm (ED) Activity/Diet/Wound Care/Special Instructions: heart healthy low carbohydrate diet activity is restricted till you see your doctor Discharge Disposition: HOME WITH HOME HEALTH SERVICES
== END 2023-04-17 16:58 | disposition home health service (06) | DRG 193 ==
LOC: EC 14:20 → 4SSUR 17:47 → 2ORMAIN 04-15 01:29 → 4SSUR 04-15 01:35
PROVIDERS: ADMIT Hospitalist; ATTEND Hospitalist
DX: J10.1 Influenza due to other identified influenza virus with other respiratory manifestations (principal); J96.01 Acute respiratory failure with hypoxia; J44.1 Chronic obstructive pulmonary disease with (acute) exacerbation; Z68.41 Body mass index [BMI] 40.0-44.9, adult; J44.0 Chronic obstructive pulmonary disease with (acute) lower respiratory infection; E11.42 Type 2 diabetes mellitus with diabetic polyneuropathy; I11.0 Hypertensive heart disease with heart failure; Z11.52 Encounter for screening for COVID-19; E66.01 Morbid (severe) obesity due to excess calories; J20.9 Acute bronchitis, unspecified; F17.210 Nicotine dependence, cigarettes, uncomplicated; E78.5 Hyperlipidemia, unspecified; G89.29 Other chronic pain; M54.9 Dorsalgia, unspecified; F32.A Depression, unspecified; I50.9 Heart failure, unspecified; K21.00 Gastro-esophageal reflux disease with esophagitis, without bleeding; Z74.01 Bed confinement status; Z79.82 Long term (current) use of aspirin; Z79.899 Other long term (current) drug therapy; Z79.1 Long term (current) use of non-steroidal anti-inflammatories (NSAID); Z82.49 Family history of ischemic heart disease and other diseases of the circulatory system; Z90.710 Acquired absence of both cervix and uterus; Z86.14 Personal history of Methicillin resistant Staphylococcus aureus infection; Z88.2 Allergy status to sulfonamides; Z88.8 Allergy status to other drugs, medicaments and biological substances; Z71.6 Tobacco abuse counseling; Z90.49 Acquired absence of other specified parts of digestive tract; Z87.19 Personal history of other diseases of the digestive system
CPT/HCPCS: 36415; 71046; 80048; 80053; 82565; 83605; 83735; 83880; 84145; 84484; 85025; 85027; 85610; 85730; 86140; 87636; 93005; 94640; 94760; 96374; 96376; 99285

== ENCOUNTER 2024-01-01 12:55 | Inpatient (IN) | payer MEDICARE ==
--- NOTE | 2024-01-01 13:04 | ED ---
Neuro HPI - General Stated Complaint: Possible stroke - History of Present Illness Is the patient presenting with stroke symptoms?: Yes Initial Comments: 68-year-old female with past medical history of COPD, hypertension, hyperlipidemia who presents emergency department with strokelike symptoms. Patient reports that around noon she went to brush her teeth. She felt sudden onset of lightheadedness, left arm weakness. Family ended up coming home and found the patient in her current state and called EMS. She denies history of strokes. Does have chronic right lower extremity foot drop from unknown reasons. States that she has seen physicians for this without a diagnosis. Denies ever having left-sided weakness. She denies visual changes. There is some slurred speech. There is concern from son that she may have taken too much of her Xanax and [place] today. It is to a dull headache. No visual changes. No recent head trauma. Prehospital blood pressure is noted to be significantly elevated. She denies any additional symptoms to include chest pain, difficulty breathing, abdominal pain. Admits to some numbness in her left arm with decree sensation. - Related Data Home Medications: Home Medications Medication Instructions Recorded Confirmed DULoxetine HCL [Cymbalta] 30 mg PO DAILY 06/26/21 01/01/24 DULoxetine HCL [Cymbalta] 60 mg PO HS 06/26/21 01/01/24 HYDROcodone/APAP 10-325MG [[place] 1 tab PO TID PRN 04/13/23 01/01/24 10-325] Tiotropium Br/Olodaterol HCl 2 puff INHALATION RT-DAILY 01/01/24 01/01/24 [Stiolto Respimat Inhaler (60)] Previous Rx's Medication Instructions Recorded Albuterol Inhaler [Ventolin Hfa 2 puff INHALATION RT-QID #18 gm 04/13/23 Inhaler] Doxycycline [Vibramycin] 100 mg PO BID 2 Days #3 cap 04/17/23 Aspirin 81 mg PO DAILY 21 Days #21 tab 01/04/24 Atorvastatin [Lipitor] 80 mg PO HS #30 tab 01/04/24 Clopidogrel [Plavix] 75 mg PO DAILY 30 Days #30 tab 01/04/24 amLODIPine [Norvasc] 5 mg PO DAILY #30 tab 01/04/24 Allergies/Adverse Reactions: Allergies Allergy/AdvReac Type Severity Reaction Status Date / Time sulfamethoxazole Allergy Rash/Hives Verified 01/01/24 15:44 [From ] trimethoprim [From ] Allergy Rash/Hives Verified 01/01/24 15:44 Review of Systems ROS Statement: Those systems with pertinent positive or pertinent negative responses have been documented in the HPI. ROS Other: All systems not noted in ROS Statement are negative. General Exam General appearance: alert, in no apparent distress Head exam: Present: atraumatic, normocephalic, normal inspection Eye exam: Present: normal appearance, PERRL, EOMI. Absent: scleral icterus, con junctival injection, periorbital swelling ENT exam: Present: normal exam, mucous membranes moist Neck exam: Present: normal inspection. Absent: tenderness, meningismus, lymphadenopathy Respiratory exam: Present: normal lung sounds bilaterally. Absent: respiratory distress, wheezes, rales, rhonchi, stridor Cardiovascular Exam: Present: regular rate, normal rhythm, normal heart sounds. Absent: systolic murmur, diastolic murmur, rubs, gallop, clicks GI/Abdominal exam: Present: soft, normal bowel sounds. Absent: distended, tenderness, guarding, rebound, rigid Extremities exam: Present: normal capillary refill, other (Significant weakness left upper and left lower extremity. Patient not able to move the left upper extremity at all. Left lower extremity cannot elevate against gravity. Cannot maintain height without falling to the bed. She also has weakness in the right lower extremity which she states is chron). Absent: tenderness, pedal edema, joint swelling, calf tenderness Back exam: Present: normal inspection Neurological exam: Present: alert, oriented X3, CN II-XII intact Psychiatric exam: Present: normal affect, normal mood Skin exam: Present: warm, dry, intact, normal color. Absent: rash Stroke MDM - Lab Data Result diagrams: 01/02/24 05:47 01/02/24 05:47 Lab Results 01/01/24 01/01/24 01/01/24 Range/Units 13:19 13:32 13:32 WBC 11.5 H (3.8-10.6) k/uL RBC 5.14 (3.80-5.40) m/uL Hgb 15.0 (11.4-16.0) gm/dL Hct 46.5 H (34.0-46.0) % MCV 90.5 (80.0-100.0) fL MCH 29.1 (25.0-35.0) pg MCHC 32.2 (31.0-37.0) g/dL RDW 14.4 (11.5-15.5) % Plt Count 316 (150-450) k/uL MPV 7.1 Neutrophils % 78 % Lymphocytes % 14 % Monocytes % 4 % Eosinophils % 3 % Basophils % 0 % Neutrophils # 9.0 H (1.3-7.7) k/uL Lymphocytes # 1.6 (1.0-4.8) k/uL Monocytes # 0.4 (0-1.0) k/uL Eosinophils # 0.3 (0-0.7) k/uL Basophils # 0.0 (0-0.2) k/uL PT 10.9 (10.0-12.5) sec INR 1.0 (<1.2) APTT 22.1 (22.0-30.0) sec Sodium (137-145) mmol/L Potassium (3.5-5.1) mmol/L Chloride (98-107) mmol/L Carbon Dioxide (22-30) mmol/L Anion Gap mmol/L BUN (7-17) mg/dL Creatinine (0.52-1.04) mg/dL Est GFR (CKD-EPI)AfAm (>60 ml/min/1.73 sqM) Est GFR (CKD-EPI)NonAf (>60 ml/min/1.73 sqM) Glucose (74-99) mg/dL POC Glucose (mg/dL) 122 H (70-110) mg/dL POC Glu Strand Buncher Fine Wire ID Mei Art Calcium (8.4-10.2) mg/dL Total Bilirubin (0.2-1.3) mg/dL AST (14-36) U/L ALT (4-34) U/L Alkaline Phosphatase (38-126) U/L Creatine Kinase (30-135) U/L Troponin I (0.000-0.034) ng/mL Total Protein (6.3-8.2) g/dL Albumin (3.5-5.0) g/dL 01/01/24 01/01/24 Range/Units 13:32 13:32 WBC (3.8-10.6) k/uL RBC (3.80-5.40) m/uL Hgb (11.4-16.0) gm/dL Hct (34.0-46.0) % MCV (80.0-100.0) fL MCH (25.0-35.0) pg MCHC (31.0-37.0) g/dL RDW (11.5-15.5) % Plt Count (150-450) k/uL MPV Neutrophils % % Lymphocytes % % Monocytes % % Eosinophils % % Basophils % % Neutrophils # (1.3-7.7) k/uL Lymphocytes # (1.0-4.8) k/uL Monocytes # (0-1.0) k/uL Eosinophils # (0-0.7) k/uL Basophils # (0-0.2) k/uL PT (10.0-12.5) sec INR (<1.2) APTT (22.0-30.0) sec Sodium 133 L (137-145) mmol/L Potassium 4.3 (3.5-5.1) mmol/L Chloride 102 (98-107) mmol/L Carbon Dioxide 26 (22-30) mmol/L Anion Gap 5 mmol/L BUN 17 (7-17) mg/dL Creatinine 0.79 (0.52-1.04) mg/dL Est GFR (CKD-EPI)AfAm >90 (>60 ml/min/1.73 sqM) Est GFR (CKD-EPI)NonAf 79 (>60 ml/min/1.73 sqM) Glucose 128 H (74-99) mg/dL POC Glucose (mg/dL) (70-110) mg/dL POC Glu [place] Fine Wire ID Calcium 9.2 (8.4-10.2) mg/dL Total Bilirubin 0.5 (0.2-1.3) mg/dL AST 15 (14-36) U/L ALT 16 (4-34) U/L Alkaline Phosphatase 122 (38-126) U/L Creatine Kinase 34 (30-135) U/L Troponin I <0.012 (0.000-0.034) ng/mL Total Protein 6.7 (6.3-8.2) g/dL Albumin 3.8 (3.5-5.0) g/dL - Medical Decision Making Was pt. sent in by a medical professional or institution (LESLYE Owusu, LEAD ESTHETICIAN, urgent care, hospital, or [facility]...) When possible be specific @ -No Did you speak to anyone other than the patient for history (EMS, parent, family, police, friend...)? What history was obtained from this source @ -Spoke with EMS for history Did you review nursing and triage notes (agree or disagree)? Why? @ -I reviewed and agree with nursing and triage notes Were old charts reviewed (outside hosp., previous admission, EMS record, old EKG, old radiological studies, urgent care reports/EKG's, [facility] records)? Report findings @ -No old charts were reviewed Differential Diagnosis (chest pain, altered mental status, abdominal pain women, abdominal pain men, vaginal bleeding, weakness, fever, dyspnea, syncope, headache, dizziness, GI bleed, back pain, seizure, CVA, palpatations, mental health, musculoskeletal)? @ -Differential CVA Ischemic stroke, hemorrhagic stroke, brain tumor, atypical migraine, Wernicke's encephalopathy, seizure, multiple sclerosis, meningitis, encephalitis, hypoglycemia, Guillain-Urban, electrolytes disturbance, myasthenia gravis.... This is not meant to be an all-inclusive list EKG interpreted by me (3pts min.). @ -Yes and demonstrates sinus rhythm with rate of 89 X-rays interpreted by me (1pt min.). @ -Yes and demonstrates no acute process CT interpreted by me (1pt min.). @ -Yes and demonstrates no acute process U/S interpreted by me (1pt. min.). @ -None done What testing was considered but not performed or refused? (CT, X-rays, U/S, labs)? Why? @ -None What meds were considered but not given or refused? Why? @ -None Did you discuss the management of the patient with other professionals (professionals i.e. , LESLYE, LEAD ESTHETICIAN, lab, RT, psych nurse, criminal justice social worker, log cooker, teacher, chief administrative officer, community case manager)? Give summary @ -Spoke with Dr. Ramos who recommended that the patient get TNKase. Spoke with him at 1:08 PM. I also spoke with Dr. Kincaid for admission. Spoke with Dr. Parsons in order to send the patient to the ICU and spoke with Dr. Gonzalez from neurology Was smoking cessation discussed for >3mins.? @ -No Was critical care preformed (if so, how long)? @ -Yes, 40 minutes for code stroke activation and TNKase administration Were there social determinants of health that impacted care today? How? (Homelessness, low income, unemployed, alcoholism, drug addiction, transportation, low edu. Level, literacy, decrease access to med. care, [facility], rehab)? @ -No Was there de-escalation of care discussed even if they declined (Discuss DNR or withdrawal of care, Hospice)? DNR status @ -No What co-morbidities impacted this encounter? (DM, HTN, Smoking, COPD, CAD, Cancer, CVA, ARF, Chemo, Hep., AIDS, mental health diagnosis, sleep apnea, morbid obesity)? @ -Depression Was patient admitted / discharged? Hospital course, mention meds given and route, prescriptions, significant lab abnormalities, going to OR and other pertinent info. @ -Upon arrival patient seen and evaluated in trauma 2. Thorough history and physical exam was performed. Patient does arrive with concerning signs of stroke. Code stroke was activated. Patient sent for CT. I discussed the case with Dr. Ramos. He feels that the patient does meet TNKase criteria. I did discuss this with the patient. She is understanding of the risks and is agreeable to TNKase administration. This is provided to the patient. She requires ICU admission at this time. Spoke with Dr. Van for admission as well as Dr. Perla for the ICU Undiagnosed new problem with uncertain prognosis? @ -Yes Drug Therapy requiring intensive monitoring for toxicity (Heparin, Nitro, Insulin, Cardizem)? @ -TNKase Were any procedures done? @ -No Diagnosis/symptom? @ -Acute left-sided weakness, suspected CVA status post TNKase Acute, or Chronic, or Acute on Chronic? @ -Acute Uncomplicated (without systemic symptoms) or Complicated (systemic symptoms)? @ -Complicated Side effects of treatment? @ -No Exacerbation, Progression, or Severe Exacerbation? @ -No Poses a threat to life or bodily function? How? (Chest pain, [place], [place], pneumonia, PE, COPD, DKA, ARF, appy, cholecystitis, CVA, Diverticulitis, Homicidal, Suicidal, threat to staff... and all critical care pts) @ -Yes as patient did receive TNKase for stroke concern Past Medical History Past Medical History: COPD, GERD/Reflux, Hyperlipidemia, Hypertension History of Any Multi-Drug Resistant Organisms: MRSA Date of last positivie culture/infection: 2008 MDRO Source:: Axilla, Cheek Past Surgical History: Back Surgery, Cholecystectomy, Heart Catheterization, Hernia Repair, Hysterectomy, Orthopedic Surgery Additional Past Surgical History / Comment(s): bilateral knee scope, left carpal tunnel, left elbow surgery, lumbar back surgery, hysterectomy due to dysfunctional uterine bleeding, colonoscopy in the past. Past Anesthesia/Blood Transfusion Reactions: No Reported Reaction Past Psychological History: Depression Smoking Status: Current every day smoker Past Alcohol Use History: None Reported Additional Past Alcohol Use History / Comment(s): Patient is a smoker one pack per day since she was 16 years of age. 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 Past Drug Use History: None Reported - Past Family History Mother Family Medical History: Cancer, COPD, Diabetes Mellitus Additional Family Medical History / Comment(s): Mother at age 73 with history of lung cancer and diabetes. Father Family Medical History: COPD, Diabetes Mellitus Additional Family Medical History / Comment(s): Father is alive at age 83 with history of diabetes mellitus with bilateral lower extremity amputations, coronary artery disease, heart failure, atrial fibrillation. Brother(s) Additional Family Medical History / Comment(s): Patient has 2 brothers and 2 sisters and she does not have any contact with them for more than 6 years. Daughter(s) Additional Family Medical History / Comment(s): Patient has 3 children. One at age 34 from heart problems or pneumonia. 1 has seizure disorder and blood cancer, one is healthy. Course Vital Signs 01/01/24 01/01/24 01/01/24 12:59 13:20 13:31 Temperature 98.5 F Pulse Rate 95 79 80 Respiratory 18 18 18 Rate Blood Pressure 168/121 143/107 152/90 O2 Sat by Pulse 96 99 97 Oximetry 01/01/24 01/01/24 01/01/24 13:40 13:47 14:10 Temperature Pulse Rate 84 86 79 Respiratory 18 18 18 Rate Blood Pressure 176/83 188/96 163/105 O2 Sat by Pulse 98 97 98 Oximetry 01/01/24 01/01/24 01/01/24 14:25 14:55 15:00 Temperature Pulse Rate 85 87 87 Respiratory 18 20 18 Rate Blood Pressure 178/99 137/93 137/93 O2 Sat by Pulse 94 L 97 97 Oximetry Disposition Clinical Impression: Cerebrovascular accident (CVA), Left-sided weakness, Hypertension Disposition: ADMITTED IP TO THIS HOSP Condition: Good Is patient prescribed a controlled substance at d/c from ED?: No Time of Disposition: 14:17 Decision to Admit Reason: Admit from EC Decision Date: 01/01/24 Decision Time: 14:17
[2024-01-01 13:21] LABS: Glucose,Whole Blood 122 mg/dL (70-110)
--- NOTE | 2024-01-01 13:26 | CT ---
EXAMINATION TYPE: CODE STROKE: CT brain wo contr CT DLP: 1107.3 mGycm, Automated exposure control for dose reduction was used. DATE OF EXAM: 01/01/2024 1:20 PM COMPARISON: Prior CT Brain from 06/26/2021. CLINICAL INDICATION:Female, 68 years old with history of Neuro deficit, acute, stroke suspected, Lt s ided weakness TECHNIQUE: Brain: Multiple axial CT images of the brain were obtained without IV contrast. . Coronal and sagitta l reformats reviewed. FINDINGS: Brain: Extra-axial spaces: No abnormal extra-axial fluid collections. Ventricular system: Within normal limits Cerebral parenchyma: No acute intraparenchymal hemorrhage or mass effect. The [place]-white junction is well differentiated. Scattered hypoattenuating areas are seen within the periventricular white matte r. Cerebellum: Unremarkable. Mass effect: No evidence of midline shift. Intracranial vasculature: Atherosclerotic calcifications of the intracranial vessels. Soft tissues: Normal. Calvarium/osseous structures: No depressed skull fracture. Paranasal sinuses and mastoid air cells: Clear Visualized orbits: Orbital contents are intact. IMPRESSION: 1. No acute intracranial process. 2. Nonspecific white matter changes, likely secondary to chronic small vessel ischemic disease. [facility], , 01/01/2024 1:24 PM
[2024-01-01] MEDS: T.ENECTEPLASE 5 MG/ML VIAL IVP STA (13:35)
[2024-01-01 13:37] LABS: Basophils % (A) 0 %; Eosinophils # (A) 0.3 k/uL (0-0.7); Eosinophils % (A) 3 %; HCT 46.5 % (34.0-46.0); Lymphocytes # (A) 1.6 k/uL (1.0-4.8); Lymphocytes % (A) 14 %; MCH 29.1 pg (25.0-35.0); MCHC 32.2 g/dL (31.0-37.0); MCV 90.5 fL (80.0-100.0); Mean Platelet Volume 7.1; Monocytes # (A) 0.4 k/uL (0-1.0); Monocytes % (A) 4 %; Neutrophils % (A) 78 %; Platelet Count 316 k/uL (150-450); RBC 5.14 m/uL (3.80-5.40); RDW 14.4 % (11.5-15.5); WBC 11.5 k/uL (3.8-10.6)
--- NOTE | 2024-01-01 13:47 | CT ---
EXAMINATION TYPE: CT angio head neck CT DLP: 687.1 mGycm, Automated exposure control for dose reduction was used. DATE OF EXAM: 01/01/2024 1:32 PM COMPARISON: CT brain 03/02/2023, 06/26/2021. CLINICAL INDICATION:Female, 68 years old with history of Neuro deficit, acute, stroke suspected; PHH, Lt sided weakness TECHNIQUE: Axially acquired helical CT angiogram of the head and neck was obtained with contrast util izing 75 cc of Isovue-370 administered intravenously. Axial images are supplemented with 3D reconstru ctions which were post-processed at an independent workstation. NASCET criteria used. FINDINGS: CTA HEAD: No evidence of acute intracranial hemorrhage, mass effect, or midline shift. The ventricles, sulci, a nd cisterns are unremarkable. The visualized portions of the internal carotid arteries, middle cerebral arteries, anterior cerebral arteries, and posterior cerebral arteries are patent. The basilar and vertebral arteries are patent. CTA NECK: Right Carotid System: The common carotid artery and external carotid artery are patent. The carotid bifurcation demonstrate s no evidence of hemodynamically significant stenosis. Retropharyngeal course of the internal carotid artery. The remaining portions of the internal carotid artery demonstrate normal size without signif icant narrowing. Left Carotid System: The common carotid artery and external carotid artery are patent. The carotid bifurcation demonstrate s no evidence of hemodynamically significant stenosis. Retropharyngeal course of the internal carotid artery. Mild atherosclerotic calcification of the proximal internal carotid artery. The remaining po rtions of the internal carotid artery demonstrate normal size without significant narrowing. Vertebral arteries are patent without evidence hemodynamically significant stenosis. There is a three-vessel aortic arch. The origins of the great vessels are patent. No evidence of hemo dynamically significant stenosis. Mild centrilobular emphysematous changes. Heterogenous thyroid gland with small subcentimeter pulmona ry nodules. IMPRESSION: 1. No evidence of dissection of the cervical internal carotid arteries or vertebral arteries or any e vidence of significant stenosis at the carotid bifurcations. 2. No evidence of high-grade stenosis or intracranial aneurysm. [facility], , 01/01/2024 1:45 PM
[2024-01-01 13:49] LABS: ALT 16 U/L (4-34); AST 15 U/L (14-36); African American GFR (CKD) >90 (>60 ml/min/1.73 sqM); Albumin 3.8 g/dL (3.5-5.0); Alkaline Phosphatase 122 U/L (38-126); Anion Gap 5 mmol/L; Blood Urea Nitrogen 17 mg/dL (7-17); Calcium 9.2 mg/dL (8.4-10.2); Carbon Dioxide 26 mmol/L (22-30); Chloride 102 mmol/L (98-107); Creatine Kinase 34 U/L (30-135); Glucose 128 mg/dL (74-99); Non-African American GFR(CKD) 79 (>60 ml/min/1.73 sqM); Potassium 4.3 mmol/L (3.5-5.1); Sodium 133 mmol/L (137-145); Total Bilirubin 0.5 mg/dL (0.2-1.3); Total Protein 6.7 g/dL (6.3-8.2)
[2024-01-01] MEDS ORDERED: Magnesium Replacement Protocol 1 EACH MISC MISCELLANE PRN (14:17)
[2024-01-01] MEDS ORDERED: NALOXONE 0.4 MG/ML 1 ML VIAL IV PRN (14:17)
[2024-01-01 14:23] LABS: Partial Thromboplastin Time 22.1 sec (22.0-30.0); Prothrombin Time 10.9 sec (10.0-12.5)
--- NOTE | 2024-01-01 15:08 | P.HPIM ---
History of Present Illness H&P Date: 01/01/24 History of present illness; patient 68-year-old lady with a past medical history significant for COPD, hypertension, presented to ER because of left-sided weakness. Patient stated that she was all right this morning when she suddenly started complaining of being lightheaded. This was followed by her feeling weak in her left arm and leg. Patient denied any complaint of loss of consciousness. There was no jerking movement of any extremity. Patient was complaining of slurred speech. At that time patient became concerned and immediately called her son who called EMS and patient brought to the ER. Initial lab work done in the ER showed WBC 9.5, hemoglobin 15, platelet count 316, sodium 130, potassium 4.3, BUN 17, creatinine 0.79, glucose 128, calcium 9.2, bilirubin 0.5, AST 15, ALT 16, troponin 0.012 EKG done in the ER showed heart rate of , no ST segment elevation or depression seen, no T-wave inversions seen. CT head done showed no acute intracranial process CTA head and neck done showed no significant stenosis, aneurysm or thrombus in the intracranial circulation ER discussed case with on-call interventional neurologist and patient was given TNK, post TNK patient will be admitted to ICU under medicine REVIEW OF SYSTEMS: CONSTITUTIONAL: No fever, no malaise, no fatigue. HEENT: No recent visual problems or hearing problems. Denied any sore throat. CARDIOVASCULAR: No chest pain, orthopnea, PND, no palpitations, no syncope. PULMONARY: No shortness of breath, no cough, no hemoptysis. GASTROINTESTINAL: No diarrhea, no nausea, no vomiting, no abdominal pain. NEUROLOGICAL: As mentioned above HEMATOLOGICAL: Denies any bleeding or petechiae. GENITOURINARY: Denies any burning micturition, frequency, or urgency. MUSCULOSKELETAL/RHEUMATOLOGICAL: Denies any joint pain, swelling, or any muscle pain. ENDOCRINE: Denies any polyuria or polydipsia. The rest of the 14-point review of systems is negative. PHYSICAL EXAMINATION: GENERAL: The patient is alert and oriented x3, not in any acute distress. Well developed, well nourished. HEENT: Pupils are round and equally reacting to light. EOMI. No scleral icterus. No conjunctival pallor. Normocephalic, atraumatic. No pharyngeal erythema. No thyromegaly. CARDIOVASCULAR: S1 and S2 present. No murmurs, rubs, or gallops. PULMONARY: Chest is clear to auscultation, no wheezing or crackles. ABDOMEN: Soft, nontender, nondistended, normoactive bowel sounds. No palpable organomegaly. MUSCULOSKELETAL: No joint swelling or deformity. EXTREMITIES: No cyanosis, clubbing, or pedal edema. NEUROLOGICAL: Cranial nerves II to XII intact, muscle strength is 4 x 5 in left side, 5/5 in right side SKIN: No rashes. Assessment and plan Acute CVA History of hypertension history of COPD Monitor vital signs Monitor CBC Monitor CMP Continue telemetry monitoring Ordered neurochecks Allow permissive hypertension for the first 24 to 48 hours Ordered post tPA protocol with CT head in 24 hours Ordered 2D echo Ordered neurology consult Ordered ICU consult Labs and medication were reviewed.. Continue same treatment. Continue with symptomatic treatment. Resume home medication. Monitor labs and vitals. DVT and GI prophylaxis. Further recommendations as per clinical course of the patient Dictation was produced using GOBA dictation software. please excuse any grammatical, word or spelling errors. Past Medical History Past Medical History: COPD, GERD/Reflux, Hyperlipidemia, Hypertension History of Any Multi-Drug Resistant Organisms: MRSA Date of last positivie culture/infection: 2008 MDRO Source:: Axilla, Cheek Past Surgical History: Back Surgery, Cholecystectomy, Heart Catheterization, Hernia Repair, Hysterectomy, Orthopedic Surgery Additional Past Surgical History / Comment(s): bilateral knee scope, left carpal tunnel, left elbow surgery, lumbar back surgery, hysterectomy due to dysfunctional uterine bleeding, colonoscopy in the past. Past Anesthesia/Blood Transfusion Reactions: No Reported Reaction Past Psychological History: Depression Smoking Status: Current every day smoker Past Alcohol Use History: None Reported Additional Past Alcohol Use History / Comment(s): Patient is a smoker one pack per day since she was 16 years of age. 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 Past Drug Use History: None Reported - Past Family History Mother Family Medical History: Cancer, COPD, Diabetes Mellitus Additional Family Medical History / Comment(s): Mother at age 73 with hist ory of lung cancer and diabetes. Father Family Medical History: COPD, Diabetes Mellitus Additional Family Medical History / Comment(s): Father is alive at age 83 with history of diabetes mellitus with bilateral lower extremity amputations, eduarda nary artery disease, heart failure, atrial fibrillation. Brother(s) Additional Family Medical History / Comment(s): Patient has 2 brothers and 2 sisters and she does not have any contact with them for more than 6 years. Daughter(s) Additional Family Medical History / Comment(s): Patient has 3 children. One at age 34 from heart problems or pneumonia. 1 has seizure disorder and blood cancer, one is healthy. Medications and Allergies Home Medications Medication Instructions Recorded Confirmed Type Aspirin [Adult Low Dose Aspirin EC] 81 mg PO DAILY 07/01/16 04/13/23 History DULoxetine HCL [Cymbalta] 30 mg PO DAILY 06/26/21 01/01/24 History DULoxetine HCL [Cymbalta] 60 mg PO HS 06/26/21 01/01/24 History Albuterol Inhaler [Ventolin Hfa 2 puff INHALATION RT-QID #18 gm 04/13/23 01/01/24 Rx Inhaler] HYDROcodone/APAP 10-325MG [Mellen 1 tab PO TID PRN 04/13/23 01/01/24 History 10-325] Ibuprofen [Motrin] 800 mg PO TID PRN 04/13/23 01/01/24 History Doxycycline [Vibramycin] 100 mg PO BID 2 Days #3 cap 04/17/23 01/01/24 Rx Allergies Allergy/AdvReac Type Severity Reaction Status Date / Time sulfamethoxazole Allergy Rash/Hives Verified 01/01/24 13:05 [From ] trimethoprim [From ] Allergy Rash/Hives Verified 01/01/24 13:05 Physical Exam Vitals: Vital Signs Temp Pulse Resp BP Pulse Ox 01/01/24 13:47 86 18 188/96 97 01/01/24 13:31 80 18 152/90 97 01/01/24 13:20 79 18 143/107 99 01/01/24 12:59 98.5 F 95 18 168/121 96 Intake and Output 12/31/23 01/01/24 01/01/24 22:59 06:59 14:59 Other: Weight 115.8 kg Results CBC & Chem 7: 01/01/24 13:32 01/01/24 13:32 Labs: Abnormal Lab Results - Last 24 Hours (Table) 01/01/24 01/01/2424 Range/Units 13:19 13:32 13:32 WBC 11.5 H (3.8-10.6) k/uL Hct 46.5 H (34.0-46.0) % Neutrophils # 9.0 H (1.3-7.7) k/uL Sodium 133 L (137-145) mmol/L Glucose 128 H (74-99) mg/dL POC Glucose (mg/dL) 122 H (70-110) mg/dL
--- NOTE | 2024-01-01 15:08 | XR ---
EXAMINATION TYPE: XR chest 1V portable DATE OF EXAM: 01/01/2024 2:57 PM COMPARISON: Chest radiographs from 04/13/2023 CLINICAL INDICATION: Female, 68 years old with history of altered mental status; [facility] TECHNIQUE: XR chest 1V portable Frontal view of the chest. FINDINGS: Lungs/Pleura: There is no evidence of pleural effusion, focal consolidation, or pneumothorax. Pulmonary vascularity: Unremarkable. Heart/mediastinum: Cardiomediastinal silhouette is unremarkable. Atherosclerotic calcifications are seen in the aorta. Musculoskeletal: No acute osseous pathology. IMPRESSION: No acute cardiopulmonary disease/process. [facility], , 01/01/2024 3:06 PM
[2024-01-01 15:34] LABS: Glucose,Whole Blood 120 mg/dL (70-110)
[2024-01-01] MEDS: CLEVIDIPINE BUTYRATE 25 MG in EMPTY BAG 1 BAG IV SCH (19:23)
[2024-01-01 20:15] LABS: Amphetamine Screen,Urine Not Detected (NotDetected); Barbiturate Screen,Urine Not Detected (NotDetected); Benzodiazepines Screen,Urine Not Detected (NotDetected); Cocaine Screen,Urine Not Detected (NotDetected); Methadone Screen, Urine Not Detected (NotDetected); Opiate Screen,Urine Not Detected (NotDetected); Oxycodone Screen, Urine Not Detected (NotDetected); Phencyclidine Screen,Urine Not Detected (NotDetected); Tricyclic Antidepressant,Urine Not Detected (NotDetected); Urn Cannabinoid Scrn Not Detected (NotDetected)
--- NOTE | 2024-01-01 23:35 | P.CNNES ---
History of Present Illness Consult date: 01/01/24 Requesting physician: Bhumika Boyd Reason for Consult: acute cva, acute left sided weakness History of Present Illness: Patient is a 68-year-old female came to the hospital by ambulance today at 12:55 PM for acute strokelike symptoms. Patient states that she woke up in the morning as usual, breast her teeth, and then she was watching TV, was sitting in her wheelchair when suddenly she became dizzy, lightheaded, could not hold up, could not hold anything with her left hand. Her left side of the face, left arm and left leg became numb. She could not hold her head and put her head on the table. She tried to lay down, but felt will pass out. Family called 911. Patient denied any chest pain. Patient states that she did have mild slurred speech but no facial droop or visual disturbance. On EMS arrival patient was sitting upright in her wheelchair, alert and orient x 4. Patient had slight left facial droop, complaining of weakness to the left arm. Patient has positive left arm drift, unable to use the left arm. Patient also has weakness to the left leg. Patient has history of nerve damage and right foot drop. Her left leg was always the good leg. She was unable to move it. Speech was mildly slurred but is understandable. Symptoms started approximately 40 minutes prior to calling EMS, which was at 12:22 PM. Patient's vitals shows blood pressure 190/103, pulse rate 100 respiration 24 saturation 95%. Blood sugar 140. Patient arrived in the ER. CT head revealed no acute intracranial process. Nonspecific white matter changes, likely secondary to chronic small vessel ischemic disease. Chest x-ray showed no acute cardiopulmonary process. EKG showed sinus rhythm. CTA of head and neck revealed no evidence of dissection of the cervical internal carotid arteries or vertebral arteries or any evidence of significant stenosis at the carotid bifurcations. No evidence of high-grade stenosis or intracranial aneurysm. ED staff discussed case with neurointervention, and patient was considered a candidate for TNK. It was given at 1:33 PM. Patient has shown remarkable improvement at this time. Patient's NIH stroke scale is just 1 related to numbness of the left side of the body. Her blood test shows WBC 11.5 hemoglobin 15, normal platelets PT PTT normal, sodium 133 normal CMP, troponin. CK is normal. Urine drug screen negative. Patient denies diabetes. She has smoked 1 pack/day since age 16. Denies any alcohol use. No previous history of strokes or TIA. Patient does take aspirin 81 mg daily regularly for years. Patient states that she cannot walk because of her right foot drop. Patient has chronic back pain. She stays in the wheelchair 24/ basis for last 2 years. She has followed up with local neurologist. Never had any back surgery. Review of Systems All pertinent positive and negative view of systems mentioned in the HPI. Past Medical History Past Medical History: COPD, GERD/Reflux, Hyperlipidemia, Hypertension History of Any Multi-Drug Resistant Organisms: MRSA Date of last positivie culture/infection: 2008 MDRO Source:: Axilla, Cheek Past Surgical History: Back Surgery, Cholecystectomy, Heart Catheterization, Hernia Repair, Hysterectomy, Orthopedic Surgery Additional Past Surgical History / Comment(s): bilateral knee scope, left carpal tunnel, left elbow surgery, lumbar back surgery, hysterectomy due to dysfunctional uterine bleeding, colonoscopy in the past. Past Anesthesia/Blood Transfusion Reactions: No Reported Reaction Past Psychological History: Depression Smoking Status: Current every day smoker Past Alcohol Use History: None Reported Additional Past Alcohol Use History / Comment(s): Patient is a smoker one pack per day since she was 16 years of age. 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 Past Drug Use History: None Reported - Past Family History Mother Family Medical History: Cancer, COPD, Diabetes Mellitus Additional Family Medical History / Comment(s): Mother at age 73 with history of lung cancer and diabetes. Father Family Medical History: COPD, Diabetes Mellitus Additional Family Medical History / Comment(s): Father is alive at age 83 with history of diabetes mellitus with bilateral lower extremity amputations, coronary artery disease, heart failure, atrial fibrillation. Brother(s) Additional Family Medical History / Comment(s): Patient has 2 brothers and 2 sisters and she does not have any contact with them for more than 6 years. Daughter(s) Additional Family Medical History / Comment(s): Patient has 3 children. One at age 34 from heart problems or pneumonia. 1 has seizure disorder and blood cancer, one is healthy. Medications and Allergies Home Medications Medication Instructions Recorded Confirmed Type DULoxetine HCL [Cymbalta] 30 mg PO DAILY 06/26/21 01/01/24 History DULoxetine HCL [Cymbalta] 60 mg PO HS 06/26/21 01/01/24 History Albuterol Inhaler [Ventolin Hfa 2 puff INHALATION RT-QID #18 gm 04/13/23 01/01/24 Rx Inhaler] HYDROcodone/APAP 10-325MG [Arjay 1 tab PO TID PRN 04/13/23 01/01/24 History 10-325] Doxycycline [Vibramycin] 100 mg PO BID 2 Days #3 cap 04/17/23 01/01/24 Rx Tiotropium Br/Olodaterol HCl 2 puff INHALATION RT-DAILY 01/01/24 01/01/24 History [Stiolto Respimat Inhaler (60)] Allergies Allergy/AdvReac Type Severity Reaction Status Date / Time sulfamethoxazole Allergy Rash/Hives Verified 01/01/24 15:44 [From ] trimethoprim [From ] Allergy Rash/Hives Verified 01/01/24 15:44 Physical Examination - Vital Signs Vital Signs: Vital Signs Temp Pulse Resp BP Pulse Ox 01/01/24 16:00 89 16 158/90 96 01/01/24 15:45 86 16 97/70 97 01/01/24 15:30 97.5 F L 83 20 159/85 96 01/01/24 15:00 87 18 137/93 97 01/01/24 14:55 87 20 137/93 97 01/01/24 14:25 85 18 178/99 94 L 01/01/24 14:10 79 18 163/105 98 01/01/24 13:47 86 18 188/96 97 01/01/24 13:40 84 18 176/83 98 01/01/24 13:31 80 18 152/90 97 01/01/24 13:20 79 18 143/107 99 01/01/24 12:59 98.5 F 95 18 168/121 96 Intake and Output 01/01/24 01/01/24 01/01/24 06:59 14:59 22:59 Output Total 500 Balance -500 Output: Urine 500 Other: Weight 115.8 kg Patient is an elderly female, very pleasant, in no acute distress. Patient is alert awake oriented to time place and person. Speech and language functions are normal. Patient can name and repeat very well. No aphasia or dysarthria. Attention, concentration and fund of knowledge is adequate. On cranial nerve examination, pupils are equal, round and reacting to light, visual paez are full on confrontation, with no neglect on double simultaneous stimulation. Extraocular muscles are intact with no nystagmus. Face is symmetric, tongue protrudes to the midline. Palatal elevation and sensation normal, hearing and shoulder shrug normal, facial sensation normal. On muscle strength testing, there is no pronator drift and the strength is normal in arms distally and proximally. In the lower limbs, her hip flexion is 5 bilaterally, ankle dorsiflexion is 0 on the right, 5 left. Deep tendon reflexes are symmetric with the biceps, 2 brachioradialis, 0 at the knees, plantars are flat. Sensory to touch decreased on the left side of the face and left arm, but equal in the legs. Cerebellar function showed no ataxia for [id number] testing. No dysdiadochokinesia. Cannot perform [id number] testing. Tone is decreased in the right foot from previous foot drop and bulk of muscles normal. Gait deferred.. On general examination, there is no carotid bruit or murmur, S1-S2 audible. Chest is clear on consultation. Abdomen is soft nontender. No organomegaly, bowel sounds present. Peripheral pulses are present. No peripheral edema. Results - Laboratory Findings CBC and BMP: 01/01/24 13:32 01/01/24 13:32 Abnormal Lab Findings: Abnormal Labs 01/01/24 01/01/24 01/01/24 13:19 13:32 13:32 WBC 11.5 H Hct 46.5 H Neutrophils # 9.0 H Sodium 133 L Glucose 128 H POC Glucose (mg/dL) 122 H 01/01/24 15:33 WBC Hct Neutrophils # Sodium Glucose POC Glucose (mg/dL) 120 H Assessment and Plan Assessment: * Acute ischemic stroke manifesting with left hemiparesis, status post TNK. P atient's current NIH score scale is 1, related to just numbness of the left facial region and left arm. * Hypertension * Hyperlipidemia * Chronic back pain * History of right foot drop * Wheelchair-bound due to above * Smoker Plan: MRI of the brain without contrast, evaluate for acute CVA 2-D echo with bubble study to rule out PFO CTA head and neck showed: No evidence of dissection of the cervical internal carotid arteries or vertebral arteries or any evidence of significant stenosis at the carotid bifurcations. No evidence of high-grade stenosis or intracranial aneurysm. Fasting a.m. lipid panel Hemoglobin A1c Permissive hypertension for next 24-48 hours, but keep less than 180/100 No antiplatelets or anticoagulants for 24 hours. Patient was taking aspirin 81 mg daily for years. Neuro checks as per protocol. Telemetry monitoring rule out any arrhythmia PT, OT, speech therapy DVT prophylaxis: SCDs Dr. Giraldo covering neurology service over the weekend. Thank you for the consult.
[2024-01-02] MEDS: HYDROcodone/APAP 5-325MG 1 EACH TAB PO PRN (01:18)
[2024-01-02 06:14] LABS: Basophils % (A) 0 %; Eosinophils # (A) 0.4 k/uL (0-0.7); Eosinophils % (A) 4 %; HCT 47.5 % (34.0-46.0); HGB 15.3 gm/dL (11.4-16.0); Lymphocytes # (A) 1.9 k/uL (1.0-4.8); Lymphocytes % (A) 17 %; MCH 29.5 pg (25.0-35.0); MCHC 32.2 g/dL (31.0-37.0); MCV 91.6 fL (80.0-100.0); Mean Platelet Volume 7.1; Monocytes # (A) 0.5 k/uL (0-1.0); Monocytes % (A) 5 %; Neutrophils # (A) 8.5 k/uL (1.3-7.7); Neutrophils % (A) 73 %; Platelet Count 320 k/uL (150-450); RBC 5.18 m/uL (3.80-5.40); RDW 14.4 % (11.5-15.5); WBC 11.6 k/uL (3.8-10.6)
[2024-01-02 06:32] LABS: African American GFR (CKD) >90 (>60 ml/min/1.73 sqM); Anion Gap 5 mmol/L; Blood Urea Nitrogen 15 mg/dL (7-17); Calcium 9.3 mg/dL (8.4-10.2); Carbon Dioxide 29 mmol/L (22-30); Chloride 101 mmol/L (98-107); Glucose 137 mg/dL (74-99); Non-African American GFR(CKD) 81 (>60 ml/min/1.73 sqM); Potassium 3.8 mmol/L (3.5-5.1); Sodium 135 mmol/L (137-145)
[2024-01-02] MEDS ORDERED: POTASSIUM BICARBONATE/CIT AC 20 MEQ TABLET.EFF NG-TUBE SCH (07:00)
[2024-01-02] MEDS: POTASSIUM CHLORIDE 10 MEQ in WATER FOR INJECTION 1 100ML.BAG IVPB SCH (07:46)
[2024-01-02] MEDS ORDERED: Potassium Replacement Protocol 1 EACH MISC MISCELLANE PRN (07:59)
[2024-01-02] MEDS: POTASSIUM BICARBONATE/CIT AC 20 MEQ TABLET.EFF NG-TUBE SCH (08:13)
--- NOTE | 2024-01-02 12:09 | P.CNPUL ---
History of Present Illness Consult date: 01/02/24 Requesting physician: Corky Hernandez Reason for consult: other (Acute CVA requiring thrombolytic treatment) Chief complaint: Dizziness, lightheadedness, and left-sided weakness facial numbness History of present illness: This is a 68-year-old male with history of COPD, hypertension, dyslipidemia, patient was brought into the ER yesterday with acute onset of stroke symptoms around 12:55 PM, her symptoms have started and the symptoms included sudden feeling of dizziness lightheadedness, could not do much with her left hand, she also felt numbness on the left face left arm and left leg, patient could not hold her head and put her head on the table. Tried to lay down, but felt she was passing out. Family called 911, brought into the ER, and the patient was felt to have acute CVA. CT of the head showed no specific findings, no intracranial process, patient received TNK. Considering thrombolytic treatment, patient was admitted to the ICU, and she will be monitored for 24 hours after h er TNK infusion this morning the patient is doing well, most of her symptoms have resolved last night, she has very minimal weakness in the left lower extremity. Her NIH stroke scale is down to 1. Repeat CT of the brain is pending an MRI of the brain is also pending. Patient is doing great this m orning, she feels significantly improved compared to yesterday. Past medical history is mostly significant for hypertension, dyslipidemia, GERD, COPD, and she has a chronic low back pain with right foot drop. Patient also has an infusion pump for her back pain. She is wheelchair-bound Review of Systems REVIEW OF SYSTEMS: CONSTITUTIONAL: As noted in HPI EYES: Negative. ENT: Negative. CARDIAC: Negative. PULMONARY: No cough no wheezing no shortness of breath GI: Negative. GENITOURINARY: Negative. MUSCULOSKELETAL: As noted in HPI SKIN: Negative. NEUROPSYCH: As noted in HPI ENDOCRINE: Negative. HEMATOLOGIC: Negative. Past Medical History Past Medical History: COPD, GERD/Reflux, Hyperlipidemia, Hypertension Additional Past Medical History / Comment(s): cva with T.nkase administration 01/01/24 History of Any Multi-Drug Resistant Organisms: MRSA Date of last positivie culture/infection: 2008 MDRO Source:: Axilla, Cheek Past Surgical History: Back Surgery, Cholecystectomy, Heart Catheterization, Hernia Repair, Hysterectomy, Orthopedic Surgery Additional Past Surgical History / Comment(s): bilateral knee scope, left carpal tunnel, left elbow surgery, lumbar back surgery, hysterectomy due to dysfunctional uterine bleeding, colonoscopy in the past. Past Anesthesia/Blood Transfusion Reactions: No Reported Reaction Past Psychological History: Depression Smoking Status: Current every day smoker Past Alcohol Use History: None Reported Additional Past Alcohol Use History / Comment(s): Patient is a smoker one pack per day since she was 16 years of age. 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 Past Drug Use History: None Reported - Past Family History Mother Family Medical History: Cancer, COPD, Diabetes Mellitus Additional Family Medical History / Comment(s): Mother at age 73 with history of lung cancer and diabetes. Father Family Medical History: COPD, Diabetes Mellitus Additional Family Medical History / Comment(s): Father is alive at age 83 with history of diabetes mellitus with bilateral lower extremity amputations, coronary artery disease, heart failure, atrial fibrillation. Brother(s) Additional Family Medical History / Comment(s): Patient has 2 brothers and 2 sisters and she does not have any contact with them for more than 6 years. Daughter(s) Additional Family Medical History / Comment(s): Patient has 3 children. One at age 34 from heart problems or pneumonia. 1 has seizure disorder and blood cancer, one is healthy. Medications and Allergies Home Medications Medication Instructions Recorded Confirmed Type DULoxetine HCL [Cymbalta] 30 mg PO DAILY 06/26/21 01/01/24 History DULoxetine HCL [Cymbalta] 60 mg PO HS 06/26/21 01/01/24 History Albuterol Inhaler [Ventolin Hfa 2 puff INHALATION RT-QID #18 gm 04/13/23 01/01/24 Rx Inhaler] HYDROcodone/APAP 10-325MG [Oley 1 tab PO TID PRN 04/13/23 01/01/24 History 10-325] Doxycycline [Vibramycin] 100 mg PO BID 2 Days #3 cap 04/17/23 01/01/24 Rx Tiotropium Br/Olodaterol HCl 2 puff INHALATION RT-DAILY 01/01/24 01/01/24 History [Stiolto Respimat Inhaler (60)] Allergies Allergy/AdvReac Type Severity Reaction Status Date / Time sulfamethoxazole Allergy Rash/Hives Verified 01/01/24 15:44 [From ] trimethoprim [From ] Allergy Rash/Hives Verified 01/01/24 15:44 Physical Exam Vitals: Vital Signs Temp Pulse Resp BP Pulse Ox 01/02/24 11:00 94 20 129/75 91 L 01/02/24 10:00 89 18 118/77 94 L 01/02/24 09:00 97 16 146/74 92 L 01/02/24 08:30 96 16 146/74 92 L 01/02/24 08:00 98.2 F 98 16 139/111 93 L 01/02/24 07:30 94 18 147/63 93 L 01/02/24 07:00 89 18 143/83 94 L 01/02/24 06:30 83 19 134/74 95 01/02/24 06:00 87 18 131/73 88 L 01/02/24 05:30 88 18 115/73 89 L 01/02/24 05:00 87 13 133/76 91 L 01/02/24 04:30 84 16 111/74 94 L 01/02/24 04:00 97.7 F 85 16 123/74 94 L 01/02/24 03:30 84 15 126/69 94 L 01/02/24 03:00 85 16 111/59 94 L 01/02/24 02:30 81 14 136/70 94 L 01/02/24 02:00 83 8 L 138/74 95 01/02/24 01:30 83 17 134/67 95 01/02/24 01:00 84 17 135/76 94 L 01/02/24 00:30 80 136/76 96 01/02/24 00:06 87 25 H 136/76 95 01/02/24 00:00 97.6 F 86 16 136/83 93 L 01/01/24 23:30 86 17 147/74 94 L 01/01/24 23:00 90 25 H 151/71 95 01/01/24 22:30 86 19 148/86 94 L 01/01/24 22:00 86 18 141/73 95 01/01/24 21:30 86 19 114/93 96 01/01/24 21:00 99 20 134/78 93 L 01/01/24 20:30 93 120/77 95 01/01/24 20:00 97.7 F 28 H 126/75 93 L 01/01/24 19:30 95 8 L 139/82 91 L 01/01/24 19:15 94 16 139/82 93 L 01/01/24 19:00 101 H 16 92 L 01/01/24 18:45 96 16 135/79 93 L 01/01/24 18:30 90 16 93 L 01/01/24 18:15 92 16 120/87 93 L 01/01/24 18:00 98 16 149/96 94 L 01/01/24 17:45 96 16 155/93 94 L 01/01/24 17:30 92 24 97 01/01/24 17:15 80 18 149/88 95 01/01/24 17:00 86 16 97 01/01/24 16:45 80 16 143/82 94 L 01/01/24 16:30 82 16 94 L 01/01/24 16:15 81 16 148/85 93 L 01/01/24 16:00 89 16 158/90 96 01/01/24 15:45 86 16 97/70 97 01/01/24 15:30 97.5 F L 83 20 159/85 96 01/01/24 15:00 87 18 137/93 97 01/01/24 14:55 87 20 137/93 97 01/01/24 14:25 85 18 178/99 94 L 01/01/24 14:10 79 18 163/105 98 01/01/24 13:47 86 18 188/96 97 01/01/24 13:40 84 18 176/83 98 01/01/24 13:31 80 18 152/90 97 01/01/24 13:20 79 18 143/107 99 01/01/24 12:59 98.5 F 95 18 168/121 96 Intake and Output 01/01/24 01/02/24 01/02/24 22:59 06:59 14:59 Output Total 900 700 0 Balance -900 -700 0 Output: Urine 900 700 0 Other: Voiding Method External Catheter External Catheter External Catheter Weight 115.5 kg GENERAL: Reveals 68-year-old female obese in no distress Head: Atraumatic, normocephalic HEENT: Pupils are round and equally reacting to light. EOMI. No scleral icterus. No conjunctival pallor. Normocephalic, atraumatic. No pharyngeal erythema. No thyromegaly. CARDIOVASCULAR: Normal S1-S2, no S3 gallop, no murmur. PULMONARY: Symmetrical chest expansion, clear breath sound bilaterally no rhonchi no wheezes ABDOMEN: Obese soft nontender no megaly no rebound, left lower quadrant pain pump is palpable MUSCULOSKELETAL: No deformities no limitation ra no clubbing edema or cyanosis, right foot drop is noted extremities: No cyanosis, clubbing, or pedal edema. NEUROLOGICAL: Cranial nerves II to XII intact, very minimal weakness noted in the left lower extremity, patient has right foot drop noted SKIN: No rashes. Psychiatric: Normal mood, affect and no mental status examination. Results - Laboratory Findings CBC and BMP: 01/02/24 05:47 01/02/24 05:47 PT/INR, D-dimer PT 10.9 sec (10.0-12.5) 01/01/24 13:32 INR 1.0 (<1.2) 01/01/24 13:32 Abnormal lab findings: Abnormal Labs 01/01/24 01/01/24 01/01/24 13:19 13:32 13:32 WBC 11.5 H Hct 46.5 H Neutrophils # 9.0 H Sodium 133 L Glucose 128 H POC Glucose (mg/dL) 122 H Hemoglobin A1c 01/01/24 01/02/24 01/02/24 15:33 05:47 05:47 WBC 11.6 H Hct 47.5 H Neutrophils # 8.5 H Sodium Glucose POC Glucose (mg/dL) 120 H Hemoglobin A1c 7.2 H 01/02/24 05:47 WBC Hct Neutrophils # Sodium 135 L Glucose 137 H POC Glucose (mg/dL) Hemoglobin A1c - Diagnostic Findings Chest x-ray: image reviewed (Chest x-ray showed no evidence of active disease) Additional studies: Brain CT on admission showed no acute intracranial process Assessment and Plan Assessment: Impression: Acute ischemic stroke/CVA with presentation of left-sided hemiparesis status post thrombolytic treatment. With excellent results. Benign essential hypertension Dyslipidemia Chronic pain syndrome Chronic right foot drop Tobacco dependence syndrome History of underlying COPD Recommendation: Continue to monitor in the ICU for a total of 24 hours at least. MRI of the brain is pending 2D echocardiogram with bubble study is pending rule out PFO Continue physical therapy occupational therapy and speech therapy Continue DVT prophylaxis Patient to go back on antiplatelet therapy in 24 hours Will continue to follow. Time with Patient: Greater than 30
[2024-01-02 13:07] LABS: Chol/HDL Ratio 8.46 Ratio; LDL Cholesterol,Calculated 191.6 mg/dL (0.0-131.0)
--- NOTE | 2024-01-02 13:13 | MR ---
EXAMINATION TYPE: MR brain wo con DATE OF EXAM: 01/02/2024 12:57 PM COMPARISON: None. CLINICAL INDICATION: Female, 68 years old with history of CVA, CVA, left-sided weakness TECHNIQUE: Multiplanar, multiecho imaging on a 3.0 Vivian magnet is performed through the brain. Stud y is performed within 24 hours of arrival to the hospital.Multiplanar, multiecho imaging on a 3.0 Tri la magnet is performed through the knee. IV Contrast: mL (None, if empty) FINDINGS: The craniovertebral junction is normal. The pituitary is normal. Optic chiasm appears normal Diffusion-weighted imaging is performed. No abnormal hyperintensity is present to suggest an acute i ntracranial infarct or acute ischemic change. There are scattered punctate areas of hyperintensity on T2 and Inversion Recovery weighted sequences which are non-specific but can be related to microvascular ischemic changes. There may be some increa sed signal within the brainstem on T2 and inversion recovery weighted sequences compatible with micro vascular ischemic changes. Subcortical white matter changes noted in the left parietal lobe. Punctate areas are within the right frontal and parietal lobe Ventricles and sulci are appropriate for the patient age. IMPRESSION: 1. . Scattered deep white matter and periventricular white matter hyperintensities likely on the basi s of chronic white matter ischemic change. 2. No acute intracranial process. [facility], , 01/02/2024 1:10 PM
--- NOTE | 2024-01-02 14:08 | P.PN ---
Subjective Progress Note Date: 01/02/24 patient 68-year-old lady with a past medical history significant for COPD, hypertension, presented to ER because of left-sided weakness. Patient stated that she was all right this morning when she suddenly started complaining of being lightheaded. This was followed by her feeling weak in her left arm and leg. Patient denied any complaint of loss of consciousness. There was no jerking movement of any extremity. Patient was complaining of slurred speech. At that time patient became concerned and immediately called her son who called EMS and patient brought to the ER. Initial lab work done in the ER showed WBC 9.5, hemoglobin 15, platelet count 316, sodium 130, potassium 4.3, BUN 17, creatinine 0.79, glucose 128, calcium 9.2, bilirubin 0.5, AST 15, ALT 16, troponin 0.012 EKG done in the ER showed heart rate of , no ST segment elevation or depression seen, no T-wave inversions seen. CT head done showed no acute intracranial process CTA head and neck done showed no significant stenosis, aneurysm or thrombus in the intracranial circulation ER discussed case with on-call interventional neurologist and patient was given TNK, post TNK patient will be admitted to ICU under medicine 01/01. Patient seen and examined. Complaining of back pain. States weakness of left side has resolved. Possible transfer to stepdown later in the day REVIEW OF SYSTEMS: CONSTITUTIONAL: No fever, no malaise,. CARDIOVASCULAR: No chest pain, no palpitations, no syncope. PULMONARY: No shortness of breath, no cough, GASTROINTESTINAL: No diarrhea, no nausea, no vomiting, no abdominal pain. NEUROLOGICAL: No headaches, no weakness, PHYSICAL EXAMINATION: GENERAL: The patient is alert and oriented x3, not in any acute distress. Well developed, well nourished. HEENT: Pupils are round and equally reacting to light. EOMI. No scleral icterus. No conjunctival pallor. Normocephalic, atraumatic. No pharyngeal erythema. No thyromegaly. CARDIOVASCULAR: S1 and S2 present. No murmurs, rubs, or gallops. PULMONARY: Chest is clear to auscultation, no wheezing or crackles. ABDOMEN: Soft, nontender, nondistended, normoactive bowel sounds. No palpable organomegaly. MUSCULOSKELETAL: No joint swelling or deformity. EXTREMITIES: No cyanosis, clubbing, or pedal edema. NEUROLOGICAL: Gross neurological examination did not reveal any focal deficits. SKIN: No rashes. Assessment and plan Acute CVA History of hypertension history of COPD Monitor vital signs Monitor CBC Monitor CMP Continue telemetry monitoring Continue neurochecks allow permissive hypertension for the first 24 to 48 hours Ordered post tPA protocol with CT head in 24 hours MRI brain ordered 2D echo ordered Neurology following ICU following Labs and medication were reviewed.. Continue same treatment. Continue with symptomatic treatment. Resume home medication. Monitor labs and vitals. DVT and GI prophylaxis. Further recommendations as per clinical course of the patient Dictation was produced using [employer] dictation software. please excuse any grammatical, word or spelling errors. Objective - Vital Signs Vital signs: Vital Signs Temp 98.2 F 01/02/24 08:00 Pulse 89 01/02/24 10:00 Resp 18 01/02/24 10:00 BP 118/77 01/02/24 10:00 Pulse Ox 94 L 01/02/24 10:00 FiO2 Intake & Output 01/01/24 01/02/24 01/02/24 18:59 06:59 18:59 Output Total 900 700 0 Balance -900 -700 0 Weight 115.8 kg 115.5 kg Output: Urine 900 700 0 Other: Voiding Method External Catheter External Catheter External Catheter - Labs CBC & Chem 7: 01/02/24 05:47 01/02/24 05:47 Labs: Abnormal Lab Results - Last 24 Hours (Table) 01/01/24 01/01/24 01/01/24 Range/Units 13:19 13:32 13:32 WBC 11.5 H (3.8-10.6) k/uL Hct 46.5 H (34.0-46.0) % Neutrophils # 9.0 H (1.3-7.7) k/uL Sodium 133 L (137-145) mmol/L Glucose 128 H (74-99) mg/dL POC Glucose (mg/dL) 122 H (70-110) mg/dL Hemoglobin A1c (<=6.0) % 01/01/24 01/02/24 01/02/24 Range/Units 15:33 05:47 05:47 WBC 11.6 H (3.8-10.6) k/uL Hct 47.5 H (34.0-46.0) % Neutrophils # 8.5 H (1.3-7.7) k/uL Sodium (137-145) mmol/L Glucose (74-99) mg/dL POC Glucose (mg/dL) 120 H (70-110) mg/dL Hemoglobin A1c 7.2 H (<=6.0) % 01/02/24 Range/Units 05:47 WBC (3.8-10.6) k/uL Hct (34.0-46.0) % Neutrophils # (1.3-7.7) k/uL Sodium 135 L (137-145) mmol/L Glucose 137 H (74-99) mg/dL POC Glucose (mg/dL) (70-110) mg/dL Hemoglobin A1c (<=6.0) %
--- NOTE | 2024-01-02 16:12 | CA ---
Transthoracic Echo Report Name: Rocio Eduardo Age: 68 Gender: F : 1955 Exam Date: 01/02/2024 11:34 Exam Location: [facility] Ht (in): 64 Wt (lb): 254 Ordering Physician: Luna Giraldo DO Attending/Referring Phys: Parimutuel Ticket Checker Shweta Martinez RDCS Procedure CPT: Indications: CVA Cardiac Hx: smoker Technical Quality: Technically difficult study Contrast 1: Definity Total Dose (mL): 2 Contrast 2: Total Dose (mL): MEASUREMENTS (Male / Female) Normal Values 2D ECHO LV Diastolic Diameter PLAX 4.5 cm 4.2 - 5.9 / 3.9 - 5.3 cm LV Systolic Diameter PLAX 3.5 cm IVS Diastolic Thickness 1.3 cm 0.6 - 1.0 / 0.6 - 0.9 cm LVPW Diastolic Thickness 1.2 cm 0.6 - 1.0 / 0.6 - 0.9 cm LV Relative Wall Thickness 0.5 RV Internal Dim ED PLAX 2.5 cm LA Systolic Diameter LX 3.1 cm 3.0 - 4.0 / 2.7 - 3.8 cm LV Diastolic Volume MOD BP 53.1 cm??? 67 - 155 / 56 - 104 cm??? LV Systolic Volume MOD BP 29.8 cm??? 22 - 58 / 19 - 49 cm??? LV Ejection Fraction MOD BP 43.8 % >= 55 % LV Cardiac Index MOD BP 962.3 cm???/min???m??? LV Diastolic Volume MOD 4C 67.6 cm??? LV Systolic Volume MOD 4C 38.5 cm??? LV Ejection Fraction MOD 4C 43.0 % LV Cardiac Index MOD 4C 1202.7 cm???/min???m??? LV Diastolic Length 4C 6.7 cm LV Systolic Length 4C 6.3 cm LV Diastolic Volume MOD 2C 38.5 cm??? LV Systolic Volume MOD 2C 19.9 cm??? LV Ejection Fraction MOD 2C 48.4 % LV Cardiac Index MOD 2C 771.0 cm???/min???m??? LV Diastolic Length 2C 6.1 cm LV Systolic Length 2C 5.3 cm LA Volume 38.0 cm??? 18 - 58 / 22 - 52 cm??? LA Volume Index 16.2 cm???/m??? 16 - 28 cm???/m??? M-MODE Aortic Root Diameter MM 3.1 cm AV Cusp Separation MM 2.2 cm DOPPLER AV Peak Velocity 124.1 cm/s AV Peak Gradient 6.2 mmHg MV Area PHT 4.6 cm??? Mitral E Point Velocity 62.7 cm/s Mitral A Point Velocity 94.0 cm/s Mitral E to A Ratio 0.7 MV Deceleration Time 166.3 ms FINDINGS Left Ventricle Left ventricular ejection fraction is estimated at 55-60.Normal left ventricular systolic function with no obvious regional wall motion abnormalities. Left ventricular cavity size normal. Mildly increased left ventricular wall thickness. Right Ventricle Normal right ventricular size. Unable to estimate the right ventricular systolic pressure. Right Atrium Right atrium not well visualized. Bubbles not succesful Left Atrium Normal left atrial size. No left atrial thrombus or mass present. Mitral Valve Structurally normal mitral valve. No mitral stenosis, regurgitation or prolapse. Aortic Valve Aortic valve not well visualized. No aortic valve stenosis or regurgitation. Tricuspid Valve Tricuspid valve not well visualized. No tricuspid stenosis, regurgitation or prolapse. Pulmonic Valve Pulmonic valve not well visualized. Pericardium No pericardial or pleural effusion. Aorta Normal size aortic root and proximal ascending aorta. CONCLUSIONS Technically difficult study. Definity ECHO contrast used for improved visualization of the endocardial borders (inadequate visualization of two or more contiguous segments). Normal left ventricular size and systolic function Very limited Doppler study Previewed by: Dr. Jamila Huerta MD (Electronically Signed) Final Date: 02 January 2024 16:11
--- NOTE | 2024-01-03 10:59 | P.PN ---
Subjective Progress Note Date: 01/02/24 The patient is a 68-year-old female who was seen in neurologic follow-up on January 02, 2024, in collaboration with Lenore Hassan, via teleneurology. The patient's chart has been reviewed. Imaging has been reviewed. The patient reports that her numbness has resolved. She continues to have weakness involving her left leg and somewhat in her left arm. She reports neck pain and back pain this morning. She says the back pain has been chronic. The neck pain is somewhat new. Patient is scheduled for MRI of the brain at noon today. Objective - Vital Signs Vital signs: Vital Signs Temp 98.2 F 01/02/24 08:00 Pulse 89 01/02/24 10:00 Resp 18 01/02/24 10:00 BP 118/77 01/02/24 10:00 Pulse Ox 94 L 01/02/24 10:00 FiO2 Intake & Output 01/01/24 01/02/24 01/02/24 18:59 06:59 18:59 Output Total 900 700 0 Balance -900 -700 0 Weight 115.8 kg 115.5 kg Output: Urine 900 700 0 Other: Voiding Method External Catheter External Catheter External Catheter - Exam General: Patient is reclining in the bed. She is in no acute distress. HEENT: Head is atraumatic, normocephalic. Fundus not visualized. There is no scleral icterus. Mucous membranes are moist. Neck: Supple without carotid bruits Heart: Regular rate and rhythm Extremities: Without edema Neurological examination Mental status: Patient is awake, alert and oriented x 3. Her speech is clear. There is no dysarthria or aphasia. Cranial nerves: Pupils are equal at 3 mm, round and reactive to light. Visual paez are full to confrontation. Extraocular movements are intact. Facial sensation is intact. There is flattening of the left nasolabial fold. Hearing is grossly intact. Uvula and palate are midline. Shoulder shrug is symmetric. Tongue protrudes midline. Motor: Strength: (Right/left): Cook Night 5/4, triceps 4/4, biceps 4/4, hip flexors 4/4, ankle plantar flexors 4/4, ankle dorsiflexors 3/4 Deep tendon reflexes: 2+/4+ throughout Sensation: Intact with the exception of decreased light touch to the right lower extremity Coordination: [id number] and rapid alternating movements are intact - Labs CBC & Chem 7: 01/02/24 05:47 01/02/24 05:47 Labs: Abnormal Lab Results - Last 24 Hours (Table) 01/01/24 01/01/24 01/01/24 Range/Units 13:19 13:32 13:32 WBC 11.5 H (3.8-10.6) k/uL Hct 46.5 H (34.0-46.0) % Neutrophils # 9.0 H (1.3-7.7) k/uL Sodium 133 L (137-145) mmol/L Glucose 128 H (74-99) mg/dL POC Glucose (mg/dL) 122 H (70-110) mg/dL Hemoglobin A1c (<=6.0) % 01/01/24 01/02/24 01/02/24 Range/Units 15:33 05:47 05:47 WBC 11.6 H (3.8-10.6) k/uL Hct 47.5 H (34.0-46.0) % Neutrophils # 8.5 H (1.3-7.7) k/uL Sodium (137-145) mmol/L Glucose (74-99) mg/dL POC Glucose (mg/dL) 120 H (70-110) mg/dL Hemoglobin A1c 7.2 H (<=6.0) % 01/02/24 Range/Units 05:47 WBC (3.8-10.6) k/uL Hct (34.0-46.0) % Neutrophils # (1.3-7.7) k/uL Sodium 135 L (137-145) mmol/L Glucose 137 H (74-99) mg/dL POC Glucose (mg/dL) (70-110) mg/dL Hemoglobin A1c (<=6.0) % Assessment and Plan Assessment: * Acute ischemic stroke manifesting with left hemiparesis, status post TNK. Patient's current NIH score scale is 1, related to just numbness of the left facial region and left arm. * Hypertension * Hyperlipidemia * Chronic back pain * History of right foot drop * Wheelchair-bound due to above * Smoker Plan: MRI of the brain without contrast, evaluate for acute CVA 2-D echo with bubble study to rule out PFO CTA head and neck showed: No evidence of dissection of the cervical internal carotid arteries or vertebral arteries or any evidence of significant stenosis at the carotid bifurcations. No evidence of high-grade stenosis or intracranial aneurysm. Fasting a.m. lipid panel Hemoglobin A1c Permissive hypertension for next 24-48 hours, but keep less than 180/100 No antiplatelets or anticoagulants for 24 hours. Patient was taking aspirin 81 mg daily for years. Neuro checks as per protocol. Telemetry monitoring rule out any arrhythmia PT, OT, speech therapy DVT prophylaxis: SCDs Time with Patient: Greater than 30 (35 minutes were spent caring for this patien t today including, obtaining history, examining the patient, reviewing imaging, chart documentation, labs, placing orders and creating this note)
[2024-01-03] MEDS: ASPIRIN 81 MG PO SCH (11:41)
[2024-01-03] MEDS: ALBUTEROL NEBULIZED 2.5 MG/3 ML INHALATION SCH (12:22)
[2024-01-03] MEDS: IPRATROPIUM 0.5 MG/2.5 ML NEBU INHALATION SCH (12:23)
--- NOTE | 2024-01-03 12:32 | P.PN ---
Subjective Progress Note Date: 01/03/24 This is a 68-year-old male with history of COPD, hypertension, dyslipidemia, patient was brought into the ER yesterday with acute onset of stroke symptoms around 12:55 PM, her symptoms have started and the symptoms included sudden feeling of dizziness lightheadedness, could not do much with her left hand, she also felt numbness on the left face left arm and left leg, patient could not hold her head and put her head on the table. Tried to lay down, but felt she was passing out. Family called 911, brought into the ER, and the patient was felt to have acute CVA. CT of the head showed no specific findings, no intracranial process, patient received TNK. Considering thrombolytic treatment, patient was admitted to the ICU, and she will be monitored for 24 hours after her TNK infusion this morning the patient is doing well, most of her symptoms have resolved last night, she has very minimal weakness in the left lower extremity. Her NIH stroke scale is down to 1. Repeat CT of the brain is pend ing an MRI of the brain is also pending. Patient is doing great this morning, she feels significantly improved compared to yesterday. Past medical history is mostly significant for hypertension, dyslipidemia, GERD, COPD, and she has a chronic low back pain with right foot drop. Patient also has an infusion pump for her back pain. She is wheelchair-bound The patient is seen today January 03, 2024 in follow-up on the selective care unit. She is currently sitting up in bed. Awake and alert. Maintaining good O2 saturations in the 90s on room air. She is not having any neurologic symptoms. Her only complaint today is of right flank pain. MRI of the brain revealed no acute intracranial process. She is continued on aspirin and statins. Heparin for DVT prophylaxis. Objective - Vital Signs Vital signs: Vital Signs Temp 97.9 F 01/03/24 11:28 Pulse 97 01/03/24 11:28 Resp 16 01/03/24 11:28 BP 159/95 01/03/24 11:28 Pulse Ox 92 L 01/03/24 11:28 FiO2 Intake & Output 01/02/24 01/03/24 01/03/24 18:59 06:59 18:59 Intake Total 540 236 Output Total 600 1100 700 Balance -600 -560 -464 Weight 117.2 kg Intake: Oral 540 236 Output: Urine 600 1100 700 Other: Voiding Method External Catheter External Catheter External Catheter # Voids 0 - Exam GENERAL EXAM: Alert, 68-year-old female, on room air, fairly comfortable in no apparent distress. HEAD: Normocephalic. EYES: Normal reaction of pupils, equal size. NOSE: Clear with pink turbinates. THROAT: No erythema or exudates. NECK: No masses, no JVD. CHEST: No chest wall deformity. LUNGS: Equal air entry with no crackles, wheeze, rhonchi or dullness. CVS: S1 and S2 normal with no audible murmur, regular rhythm. ABDOMEN: No hepatosplenomegaly, normal bowel sounds, no guarding or rigidity. SPINE: No scoliosis or deformity SKIN: No rashes CENTRAL NERVOUS SYSTEM: No focal deficits, tone is normal in all 4 extremities. EXTREMITIES: Slightly weaker left lower extremity. Right foot drop. There is no peripheral edema. No clubbing, no cyanosis. Peripheral pulses are intact. - Labs CBC & Chem 7: 01/02/24 05:47 01/02/24 05:47 Labs: Abnormal Lab Results - Last 24 Hours (Table) 01/02/24 Range/Units 05:47 Triglycerides 228.00 H (0.00-149.00) mg/dL Cholesterol 269.00 H (0.00-200.00) mg/dL LDL Cholesterol, Calc 191.6 H (0.0-131.0) mg/dL VLDL Cholesterol, Calc 45.60 H (5.00-40.00) mg/dL HDL Cholesterol 31.80 L (40.00-60.00) mg/dL Assessment and Plan Assessment: Acute ischemic stroke/CVA with presentation of left-sided hemiparesis status post thrombolytic treatment. With excellent results. Benign essential hypertension Dyslipidemia Chronic pain syndrome Chronic right foot drop Tobacco dependence syndrome History of underlying COPD Plan: The patient was seen and evaluated MRI of the brain and medications reviewed Remains on aspirin and statins Stable and on room air No new neurologic deficits Home once cleared by neurology I have personally seen and examined the patient, performed the documentation and the assessment and plan as written. Number of minutes spent on the visit: 10 Dictation was produced using [employer] software. Please excuse any grammatical, word or spelling errors.
--- NOTE | 2024-01-03 13:32 | P.PN ---
Subjective Progress Note Date: 01/03/24 patient 68-year-old lady with a past medical history significant for COPD, hypertension, presented to ER because of left-sided weakness. Patient stated that she was all right this morning when she suddenly started complaining of being lightheaded. This was followed by her feeling weak in her left arm and leg. Patient denied any complaint of loss of consciousness. There was no jerking movement of any extremity. Patient was complaining of slurred speech. At that time patient became concerned and immediately called her son who called EMS and patient brought to the ER. Initial lab work done in the ER showed WBC 9.5, hemoglobin 15, platelet count 316, sodium 130, potassium 4.3, BUN 17, creatinine 0.79, glucose 128, calcium 9.2, bilirubin 0.5, AST 15, ALT 16, troponin 0.012 EKG done in the ER showed heart rate of , no ST segment elevation or depression seen, no T-wave inversions seen. CT head done showed no acute intracranial process CTA head and neck done showed no significant stenosis, aneurysm or thrombus in the intracranial circulation ER discussed case with on-call interventional neurologist and patient was given TNK, post TNK patient will be admitted to ICU under medicine 01/01. Patient seen and examined. Complaining of back pain. States weakness of left side has resolved. Possible transfer to stepdown later in the day 01/02. Patient seen and examined. MRI brain done showed scattered deep white matter and periventricular white matter hyperintensities likely on the basis of chronic white matter ischemic change, no acute intracranial process 2D echo done showed normal left ventricular size and function, REVIEW OF SYSTEMS: CONSTITUTIONAL: No fever, no malaise,. CARDIOVASCULAR: No chest pain, no palpitations, no syncope. PULMONARY: No shortness of breath, no cough, GASTROINTESTINAL: No diarrhea, no nausea, no vomiting, no abdominal pain. NEUROLOGICAL: No headaches, no weakness, PHYSICAL EXAMINATION: GENERAL: The patient is alert and oriented x3, not in any acute distress. Well developed, well nourished. HEENT: Pupils are round and equally reacting to light. EOMI. No scleral icterus. No conjunctival pallor. Normocephalic, atraumatic. No pharyngeal erythema. No thyromegaly. CARDIOVASCULAR: S1 and S2 present. No murmurs, rubs, or gallops. PULMONARY: Chest is clear to auscultation, no wheezing or crackles. ABDOMEN: Soft, nontender, nondistended, normoactive bowel sounds. No palpable organomegaly. MUSCULOSKELETAL: No joint swelling or deformity. EXTREMITIES: No cyanosis, clubbing, or pedal edema. NEUROLOGICAL: Gross neurological examination did not reveal any focal deficits. SKIN: No rashes. Assessment and plan Acute CVA History of hypertension history of COPD Monitor vital signs Monitor CBC Monitor CMP Continue telemetry monitoring Continue neurochecks MRI brain showed scattered deep white matter and periventricular white matter hyperintensities likely on the basis of chronic white matter ischemic change, no acute intracranial process 2D echo ordered Started aspirin and Lipitor Neurology following ICU following Labs and medication were reviewed.. Continue same treatment. Continue with symptomatic treatment. Resume home medication. Monitor labs and vitals. DVT and GI prophylaxis. Further recommendations as per clinical course of the patient Dictation was produced using [employer] + dictation software. please excuse any grammatical, word or spelling errors. Objective - Vital Signs Vital signs: Vital Signs Temp 97.9 F 01/03/24 08:00 Pulse 97 01/03/24 08:00 Resp 16 01/03/24 08:00 BP 174/102 01/03/24 08:00 Pulse Ox 92 L 01/03/24 08:00 FiO2 Intake & Output 01/02/24 01/03/24 01/03/24 18:59 06:59 18:59 Intake Total 540 236 Output Total 600 1100 700 Balance -600 -560 -464 Weight 117.2 kg Intake: Oral 540 236 Output: Urine 600 1100 700 Other: Voiding Method External Catheter External Catheter External Catheter # Voids 0 - Labs CBC & Chem 7: 01/02/24 05:47 01/02/24 05:47 Labs: Abnormal Lab Results - Last 24 Hours (Table) 01/02/24 Range/Units 05:47 Triglycerides 228.00 H (0.00-149.00) mg/dL Cholesterol 269.00 H (0.00-200.00) mg/dL LDL Cholesterol, Calc 191.6 H (0.0-131.0) mg/dL VLDL Cholesterol, Calc 45.60 H (5.00-40.00) mg/dL HDL Cholesterol 31.80 L (40.00-60.00) mg/dL
--- NOTE | 2024-01-03 14:22 | P.PN ---
Subjective Progress Note Date: 01/03/24 The patient is a 68-year-old female who was seen in neurologic follow-up on January 03, 2024, in collaboration with Lenore Hsasan, via teleneurology. The patient's chart has been reviewed. Imaging has been reviewed. The patient reports that her numbness has resolved. She continues to have weakness involving her left leg and somewhat in her left arm. She reports neck pain and back pain this morning. MRI images have been reviewed. There is no reported evidence of acute hemorrhage or ischemia. There are reports of signs of chronic ischemic change. These results were discussed with the patient. Objective - Vital Signs Vital signs: Vital Signs Temp 97.9 F 01/03/24 08:00 Pulse 97 01/03/24 08:00 Resp 16 01/03/24 08:00 BP 174/102 01/03/24 08:00 Pulse Ox 92 L 01/03/24 08:00 FiO2 Intake & Output 01/02/24 01/03/24 01/03/24 18:59 06:59 18:59 Intake Total 540 236 Output Total 600 1100 700 Balance -600 -560 -464 Weight 117.2 kg Intake: Oral 540 236 Output: Urine 600 1100 700 Other: Voiding Method External Catheter External Catheter External Catheter # Voids 0 - Exam General: Patient is reclining in the bed. She is in no acute distress. HEENT: Head is atraumatic, normocephalic. Fundus not visualized. There is no scleral icterus. Mucous membranes are moist. Neurological examination Mental status: Patient is awake, alert and oriented x 3. Her speech is clear. There is no dysarthria or aphasia. Cranial nerves: Pupils are equal at 3 mm, round and reactive to light. Visual paez are full to confrontation. Extraocular movements are intact. Facial sensation is intact. There is flattening of the left nasolabial fold. Hearing is grossly intact. Uvula and palate are midline. Shoulder shrug is symmetric. Tongue protrudes midline. Motor: Strength: (Right/left): Activities Coordinator 5/4, triceps 4/4, biceps 4/4, hip flexors 4/4, ankle plantar flexors 0/4, ankle dorsiflexors 0/4 Deep tendon reflexes: 2+/4+ throughout, with the exception of the right patellar reflex at 3+/4+ Sensation: Intact with the exception of decreased light touch to the right lower extremity Coordination: [id number] and rapid alternating movements are intact. There is no pronator drift - Labs CBC & Chem 7: 01/02/24 05:47 01/02/24 05:47 Labs: Abnormal Lab Results - Last 24 Hours (Table) 01/02/24 Range/Units 05:47 Triglycerides 228.00 H (0.00-149.00) mg/dL Cholesterol 269.00 H (0.00-200.00) mg/dL LDL Cholesterol, Calc 191.6 H (0.0-131.0) mg/dL VLDL Cholesterol, Calc 45.60 H (5.00-40.00) mg/dL HDL Cholesterol 31.80 L (40.00-60.00) mg/dL Assessment and Plan Assessment: * Acute ischemic stroke manifesting with left hemiparesis, status post TNK. MRI is negative for acute ischemia. 2D echocardiogram reveals an ejection fraction of 55 to 60%. Bubble study was unable to be carried out * Hypertension * Hyperlipidemia-triglycerides 228, total cholesterol 269, LDL cholesterol 191.6, HDL cholesterol 31.8 * Chronic back pain * History of right foot drop * Wheelchair-bound due to above * Smoker * Hemoglobin A1c is elevated at 7.2 Plan: MRI of the brain without contrast, evaluate for acute CVA 2-D echo with bubble study to rule out PFO CTA head and neck showed: No evidence of dissection of the cervical internal carotid arteries or vertebral arteries or any evidence of significant stenosis at the carotid bifurcations. No evidence of high-grade stenosis or intracranial aneurysm. Permissive hypertension for next 24-48 hours, but keep less than 180/100 No antiplatelets or anticoagulants for 24 hours. Patient was taking aspirin 81 mg daily for years. Plavix will be added to the patient's 81 mg aspirin. Dual antiplatelet therapy should be continued for 21 days. After this, the patient should be continued on Plavix 75 mg monotherapy High intensity statin should be initiated Neuro checks as per protocol. Telemetry monitoring rule out any arrhythmia PT, OT, speech therapy DVT prophylaxis: SCDs Still awaiting PT and OT evaluations Dr. Ketan Hoffmann will assume neurologic coverage of this patient as of January 04, 2024 Time with Patient: Greater than 30 (35 minutes were spent caring for this patient today including, obtaining history, examining the patient, reviewing imaging, chart documentation, labs, placing orders and creating this note)
[2024-01-03] MEDS: HYDROcodone/APAP 10-325MG 1 EACH TAB PO PRN (14:50)
[2024-01-03] MEDS: HEPARIN SODIUM,PORCINE 5,000 UNIT/ML 1 ML VIAL SQ SCH (14:50)
[2024-01-03 19:38] VITALS: TEMP 98.1
[2024-01-03] MEDS: DULoxetine HCL 60 MG CAPSULE.DR PO SCH (20:01)
[2024-01-03] MEDS: ATORVASTATIN 80 MG TAB PO SCH (20:01)
[2024-01-03] MEDS: IPRATROPIUM-ALBUTEROL 3 ML NEB INHALATION SCH (20:56)
[2024-01-04] MEDS: DULoxetine HCL 30 MG CAPSULE.DR PO SCH (07:37)
[2024-01-04] MEDS: amLODIPine 5 MG TAB PO SCH (09:40)
[2024-01-04 11:22] VITALS: BP 152/91; RESP 16
[2024-01-04 12:01] VITALS: PULSE 92
--- NOTE | 2024-01-04 15:28 | P.PN ---
Subjective Progress Note Date: 01/04/24 I am seeing the patient for the first time during this admission. Please refer to Dr. Gonzalez and Dr. Giraldo's notes for further details. The patient she had acute left-sided weakness and she received IV thrombolytic and after that the patient symptoms has resolved and she denies any further deficits. Objective - Vital Signs Vital signs: Vital Signs Temp 98.1 F 01/04/24 08:00 Pulse 92 01/04/24 12:01 Resp 16 01/04/24 11:20 BP 152/91 01/04/24 11:20 Pulse Ox 92 L 01/04/24 11:20 FiO2 Intake & Output 01/03/24 01/04/24 01/04/24 18:59 06:59 18:59 Intake Total 776 1020 Output Total 2100 1250 550 Balance -1324 -1250 470 Weight 120 kg Intake: Oral 776 1020 Output: Urine 2100 1250 550 Other: Voiding Method External Catheter External Catheter External Catheter - Exam General: Sitting up in recliner chair and is not in acute distress. Neuro: Patient is awake alert oriented to self place and time. Is following simple commands. No aphasia. The pupils are round equal reactive to light. Visual paez are full to confrontation. Extraocular movements intact no nystagmus. No facial weakness. No dysarthria Motor is strength is 5 out of 5 throughout Sensation: Normal to touch throughout. - Labs CBC & Chem 7: 01/02/24 05:47 01/02/24 05:47 Assessment and Plan Assessment: * Acute ischemic stroke manifesting with left hemiparesis, status post TNK. MRI is negative for acute ischemia. 2D echocardiogram reveals an ejection fraction of 55 to 60%. Bubble study was unable to be carried out * Hypertension * Hyperlipidemia-triglycerides 228, total cholesterol 269, LDL cholesterol 191.6, HDL cholesterol 31.8 * Chronic back pain * History of right foot drop * Wheelchair-bound due to above * Smoker * Hemoglobin A1c is elevated at 7.2 Plan: Patient was taking aspirin 81 mg daily for years. Plavix was added during this admission. Dual antiplatelet therapy should be continued for 21 days. After this, the patient should be continued on Plavix 75 mg monotherapy High intensity statin should be initiated Neuro checks as per protocol. Telemetry monitoring rule out any arrhythmia. Recommend a 30 day event monitor. PT, OT, speech therapy Recommend the patient to follow-up with a neurologist as an outpatient within 2 to 3 weeks The plan discussed with the patient and nurse. There is no further neurological work-up. Time with Patient: Less than 30
[2024-01-05] MEDS ORDERED: CLOPIDOGREL 75 MG TAB PO SCH (09:00)
--- NOTE | 2024-01-06 10:35 | CDI ---
Documentation Clarification Form Date: 01/06/2024 10:24:40 AM From: Maria Esther Ramirez Phone: Admit Date: 01/01/2024 02:18:00 PM Patient Name: Rocio Eduardo Visit Number: [id number] Discharge Date: 01/04/2024 02:00:00 PM ATTENTION: The Clinical Documentation Specialists (CDI) and [facility] Coding Staff appreciate your assistance in clarifying documentation. Please respond to the clarification below the line at the bottom and electronically sign. The CDI & [facility] Coding staff will review the response and follow-up if needed. Please note: Queries are made part of the Legal Health Record. If you have any questions, please contact the author of this message via ITS. Doctor/Provider: Deshawn Light There is documentation of stroke in H/P note on 01/01/2024. Additional clarification is requested. History/Risk Factors: History of presentillness; patient 68-year-old lady with a past medical history significant forCOPD,hypertension, presented to ER because ofleft-sided weakness. Clinical Indicators: on 12/31 H/P Patient stated that she was all right this morning when she suddenly started complaining of beinglightheaded. This was followed by her feelingweak in her left arm and leg . CT headdoneshowed noacute intracranial process CTAhead and neck doneshowed nosignificantstenosis,aneurysmorthrombusin the intracranial circulation ER discussed case with on-call interventional neurologist and patient was given TNK, postTNKpatient will be admitted to ICU under medicine Brain MRI 01/01 -Scattered deep white matter and periventricular white matter hyper-intensitieslikelyon the basis of chronic white matterischemicchange. 2.No acute intracranial process. On 01/03 PN -Acuteischemicstrokemanifesting with lefthemiparesis,status post TNK.MRI is negative foracuteischemia.2Dechocardiogramreveals an ejection fraction of 55 to 60%.Bubblestudywasunable josé miguel carried out Treatment: tnk administration, patient was taking aspirin 81 mg daily for years. Plavix was added during this admission. Dualantiplatelet therapyshould be continued for 21 days Can you please clarify IF Stroke is present ? [ x] Yes , Stroke present and treated [ ] No , Stroke is not present /ruled out [ ] Other, please specify [ ] Unable to determine (Template Last Revised: April 2020) MTDD
--- NOTE | 2024-01-16 14:10 | P.DS ---
Providers Date of admission: 01/01/24 14:18 Expected date of discharge: 01/04/24 Attending physician: Ronnie Aguilera MD Consults: 01/01/24 14:17 Consult Physician Urgent Consulting Provider: Leydi Gonzalez Consult Reason/Comments: acute cva, acute left sided weakness Do you want consulting provider notified?: Yes 01/01/24 14:18 Consult Physician Stat Consulting Provider: Nadege Abbott Consult Reason/Comments: acute left sided weakness, acute cva Do you want consulting provider notified?: Already Contacted Primary care physician: Emilia Sher [facility] Course: Discharge diagnoses; Acute CVA History of hypertension history of COPD Hospital course; patient 68-year-old lady with a past medical history significant for COPD, hypertension, presented to ER because of left-sided weakness. Patient stated that she was all right this morning when she suddenly started complaining of being lightheaded. This was followed by her feeling weak in her left arm and leg. Patient denied any complaint of loss of consciousness. There was no jerking movement of any extremity. Patient was complaining of slurred speech. At that time patient became concerned and immediately called her son who called EMS and patient brought to the ER. Initial lab work done in the ER showed WBC 9.5, hemoglobin 15, platelet count 316, sodium 130, potassium 4.3, BUN 17, creatinine 0.79, glucose 128, calcium 9.2, bilirubin 0.5, AST 15, ALT 16, troponin 0.012 EKG done in the ER showed heart rate of , no ST segment elevation or depression seen, no T-wave inversions seen. CT head done showed no acute intracranial process CTA head and neck done showed no significant stenosis, aneurysm or thrombus in the intracranial circulation ER discussed case with on-call interventional neurologist and patient was given TNK, post TNK patient will be admitted to ICU under medicine 01/01. Patient seen and examined. Complaining of back pain. States weakness of left side has resolved. Possible transfer to stepdown later in the day 01/02. Patient seen and examined. MRI brain done showed scattered deep white matter and periventricular white matter hyperintensities likely on the basis of chronic white matter ischemic change, no acute intracranial process 2D echo done showed normal left ventricular size and function, 01/03. Patient seen and examined. Neurology recommended dual antiplatelet th erapy for 21 days followed by Plavix indefinitely. Patient started on Norvasc for blood pressure control PHYSICAL EXAMINATION: GENERAL: The patient is alert and oriented x3, not in any acute distress. Well developed, well nourished. HEENT: Pupils are round and equally reacting to light. EOMI. No scleral icterus. No conjunctival pallor. Normocephalic, atraumatic. No pharyngeal erythema. No thyromegaly. CARDIOVASCULAR: S1 and S2 present. No murmurs, rubs, or gallops. PULMONARY: Chest is clear to auscultation, no wheezing or crackles. ABDOMEN: Soft, nontender, nondistended, normoactive bowel sounds. No palpable organomegaly. MUSCULOSKELETAL: No joint swelling or deformity. EXTREMITIES: No cyanosis, clubbing, or pedal edema. NEUROLOGICAL: Gross neurological examination did not reveal any focal deficits. SKIN: No rashes. Dictation was produced using [employer] dictation software. please excuse any grammatical, word or spelling errors. Patient Condition at Discharge: Good Plan - Discharge Summary Discharge Rx Participant: No New Discharge Prescriptions: New Aspirin 81 mg PO DAILY 21 Days #21 tab Atorvastatin [Lipitor] 80 mg PO HS #30 tab amLODIPine [Norvasc] 5 mg PO DAILY #30 tab Clopidogrel [Plavix] 75 mg PO DAILY 30 Days #30 tab Continue DULoxetine HCL [Cymbalta] 60 mg PO HS Albuterol Inhaler [Ventolin Hfa Inhaler] 2 puff INHALATION RT-QID #18 gm Doxycycline [Vibramycin] 100 mg PO BID 2 Days #3 cap DULoxetine HCL [Cymbalta] 30 mg PO DAILY HYDROcodone/APAP 10-325MG [[place] 10-325] 1 tab PO TID PRN PRN Reason: Pain Tiotropium Br/Olodaterol HCl [Stiolto Respimat Inhaler (60)] 2 puff INHALATION RT-DAILY Discharge Medication List DULoxetine HCL [Cymbalta] 30 mg PO DAILY 06/26/21 [History] DULoxetine HCL [Cymbalta] 60 mg PO HS 06/26/21 [History] Albuterol Inhaler [Ventolin Hfa Inhaler] 2 puff INHALATION RT-QID #18 gm 04/13/23 [Rx] HYDROcodone/APAP 10-325MG [[place] 10-325] 1 tab PO TID PRN 04/13/23 [History] Doxycycline [Vibramycin] 100 mg PO BID 2 Days #3 cap 04/17/23 [Rx] Tiotropium Br/Olodaterol HCl [Stiolto Respimat Inhaler (60)] 2 puff INHALATION RT-DAILY 01/01/24 [History] Aspirin 81 mg PO DAILY 21 Days #21 tab 01/04/24 [Rx] Atorvastatin [Lipitor] 80 mg PO HS #30 tab 01/04/24 [Rx] Clopidogrel [Plavix] 75 mg PO DAILY 30 Days #30 tab 01/04/24 [Rx] amLODIPine [Norvasc] 5 mg PO DAILY #30 tab 01/04/24 [Rx] Follow up Appointment(s)/Referral(s): Emilia Sher MD [Primary Care Provider] - 1-2 days Ketan Abraham MD [STAFF PHYSICIAN] - 1 Week Activity/Diet/Wound Care/Special Instructions: Take aspirin and Plavix together for 21 days followed by Plavix for the rest of life, stop taking aspirin after 21 days Discharge Disposition: HOME SELF-CARE
== END 2024-01-04 14:00 | disposition home or self-care (01) | DRG 62 ==
LOC: EC 12:55 → SUPCPDRO 12:55 → 2SICU 14:18 → 3SCARD 01-02 17:24
PROVIDERS: ADMIT Internal Medicine; ATTEND Internal Medicine
DX: I63.9 Cerebral infarction, unspecified (principal); G81.94 Hemiplegia, unspecified affecting left nondominant side; J44.9 Chronic obstructive pulmonary disease, unspecified; I10 Essential (primary) hypertension; E78.5 Hyperlipidemia, unspecified; M21.371 Foot drop, right foot; K21.9 Gastro-esophageal reflux disease without esophagitis; F17.210 Nicotine dependence, cigarettes, uncomplicated; R29.810 Facial weakness; G89.4 Chronic pain syndrome; Z79.899 Other long term (current) drug therapy; Z79.82 Long term (current) use of aspirin; Z88.2 Allergy status to sulfonamides; Z88.8 Allergy status to other drugs, medicaments and biological substances; Z86.14 Personal history of Methicillin resistant Staphylococcus aureus infection; Z90.710 Acquired absence of both cervix and uterus; Z79.02 Long term (current) use of antithrombotics/antiplatelets
CPT/HCPCS: 36415; 70450; 70496; 70498; 70551; 71045; 80048; 80053; 80061; 80306; 82550; 83036; 84484; 85025; 85610; 85730; 93005; 93306; 94640; 96374; 99291